=== PATIENT | female | born 1975 | race Caucasian/White ===

== ENCOUNTER → 2020-04-18 09:34 | Outpatient (BNVA) | payer OTHER, SELFPAY | PROVIDERS: PCP Internal Medicine; Referring Provider Internal Medicine; Visit Provider Physician Assistant | DX: E66.9 Obesity, unspecified (principal); Z68.32 Body mass index [BMI] 32.0-32.9, adult | CPT/HCPCS: 99205; 99214 ==

== ENCOUNTER → 2020-05-23 07:45 | Outpatient (BNVA) | payer OTHER, SELFPAY | PROVIDERS: PCP Nurse Practitioner Adult Health; Visit Provider Dietitian, Registered | DX: Z76.89 Persons encountering health services in other specified circumstances (principal) ==

== ENCOUNTER → 2020-06-10 13:45 | Outpatient (BNVA) | payer OTHER, SELFPAY | PROVIDERS: PCP Internal Medicine; Visit Provider Physician Assistant | DX: M77.11 Lateral epicondylitis, right elbow (principal) | CPT/HCPCS: 20551; 99202 ==

== ENCOUNTER → 2020-06-26 12:54 | Outpatient (BNVA) | payer OTHER, SELFPAY | PROVIDERS: PCP Internal Medicine; Referring Provider Internal Medicine; Visit Provider Physician Assistant | DX: M77.11 Lateral epicondylitis, right elbow (principal) | CPT/HCPCS: 20551; 99212; J1020 ==

== ENCOUNTER → 2020-08-12 08:17 | Outpatient (BNVA) | payer OTHER, SELFPAY | PROVIDERS: PCP Internal Medicine; Visit Provider Dietitian, Registered ==

== ENCOUNTER → 2020-08-21 12:25 | Outpatient (BNVA) | payer OTHER, SELFPAY | PROVIDERS: PCP Internal Medicine; Visit Provider Physician Assistant ==

== ENCOUNTER → 2020-08-26 08:22 | Outpatient (BNVA) | payer OTHER, SELFPAY | PROVIDERS: PCP Internal Medicine; Visit Provider Dietitian, Registered ==

== ENCOUNTER → 2020-10-24 09:37 | Outpatient (BNVA) | payer OTHER, SELFPAY | PROVIDERS: Visit Provider Physician Assistant ==

== ENCOUNTER → 2020-10-24 10:10 | Outpatient (BNVA) | payer OTHER, SELFPAY | PROVIDERS: Visit Provider Physician Assistant | DX: M77.01 Medial epicondylitis, right elbow (principal) | CPT/HCPCS: 20551; 99212; J1020 ==

== ENCOUNTER → 2021-03-13 09:48 | Outpatient (BNVA) | payer OTHER, SELFPAY | PROVIDERS: Visit Provider Physician Assistant | DX: M77.11 Lateral epicondylitis, right elbow (principal) | CPT/HCPCS: 20551; 99212; J1020 ==

== ENCOUNTER → 2021-06-25 14:42 | Outpatient (BNVA) | payer OTHER, SELFPAY | PROVIDERS: PCP Internal Medicine; Visit Provider Physician Assistant | DX: M77.11 Lateral epicondylitis, right elbow (principal) | CPT/HCPCS: 20551; 99212; J1020; J1100 ==

== ENCOUNTER 2021-07-11 15:39 | Emergency (ER) | payer OTHER, SELFPAY ==
--- NOTE | ~2021-07-11 | US_ITS ---
EXAMINATION: US PELVIS CLINICAL INFORMATION: Right adnexal pain. Status post endometrial ablation in 2016 COMPARISON: Prior CT abdomen pelvis and pelvic ultrasound from 2012, report only TECHNIQUE: Ultrasound of the pelvis is performed using both transabdominal and transvaginal transducers along with Doppler. Transvaginal imaging is performed due to inadequate visualization transabdominally. FINDINGS: Uterus: The uterus is anteverted and measures 9.7 x 4.7 x 6.4 cm. There is a 4.5 x 3.3 x 3.6 cm right-sided mass which appears to be arising from the fundus of the uterus, possibly a necrotic a fundal fibroid. This does not appear to be associated with the ovary. Because of the unusual appearance, elective pelvic pain post contrast MRI is recommended for further evaluation The double wall endometrial thickness is not well seen status post ablation. Adnexa: Both ovaries are visualized. There is normal color flow to the adnexa. There is no ovarian torsion. There is no pelvic ascites or fluid collection. Right ovary measures 3.0 x 2.8 x 2.8 cm for a volume of 9.4 mL This includes a 2.1 x 1.7 x 1.6 cm cyst. Left ovary measures 3.0 x 1.7 x 2.1 cm for a volume of 5.6 mL. US/US pelvic and transvaginal IMPRESSION: Abnormal mass arising from the fundus of the uterus on the right, somewhat unusual in appearances. Findings could represent a necrotic fundal fibroid. No fibroids have been described in the past. Elective pre and postcontrast pelvic MRI is recommended for further evaluation.
--- NOTE | ~2021-07-11 | CT_ITS ---
EXAMINATION: CT ABDOMEN AND PELVIS WITH CONTRAST CLINICAL INFORMATION: Acute right lower quadrant pain COMPARISON: Ultrasound pelvis today TECHNIQUE: Multidetector volumetric images were obtained from the superior aspect of the liver through the pubic symphysis following administration 85 mL of Omnipaque 350 intravenous contrast. Sagittal and coronal reformatted images were obtained on the technologist's workstation. Oral contrast: No This CT examination was performed using dose optimization techniques as appropriate, variously including the following: *Automated exposure control *Adjustment of mA and/or kV according to patient size (this includes techniques or standardized protocols for targeted exams where dose is matched to indication/reason for exam; i.e. extremities or head) *Use of iterative reconstruction technique DLP: 647 mGy-cm FINDINGS: LUNG BASES: The visualized lung bases are unremarkable. LIVER, GALLBLADDER, AND BILIARY TREE: The liver is enlarged and most likely demonstrates hepatic steatosis. A tiny 3 mm sized hypodensity seen in the right lobe of the liver just below the dome of the hemidiaphragm (4:55), most likely a cyst. No worrisome solid focal hepatic lesion or biliary ductal dilatation is present. The gallbladder is unremarkable with no evidence of radiopaque gallstones, gallbladder wall thickening, or obvious pericholecystic inflammatory changes. PANCREAS: Unremarkable. SPLEEN: Unremarkable. ADRENAL GLANDS: Unremarkable. KIDNEYS AND URETERS: The kidneys are normal in size, shape, and attenuation. No hydronephrosis, hydroureter, or calculi seen. No perinephric stranding. BLADDER: Unremarkable. GASTROINTESTINAL TRACT: The small and large bowel are unremarkable. The appendix is unremarkable. ABDOMINAL WALL: No significant hernia is appreciated. LYMPH NODES: No retroperitoneal lymphadenopathy. VASCULAR: Unremarkable. PELVIC VISCERA: There is a fluid collection within the endometrial cavity on the right near the fundus measuring 3.0 x 4.1 and 3.4 cm. This measures water density, no solid component or gestational sac/fetus is seen within this. A tiny sliver of fluid is seen in the same location on the left measuring only 4 mm in thickness. The ovaries appear normal. The left ovary which was not seen on the ultrasound exam 6 somewhat high abutting the uterus and has a single coarse calcification. A small amount of fluid is present in the cul-de-sac. OSSEOUS STRUCTURES: Unremarkable. 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 Findings could be secondary to a stricture, endometrial carcinoma, occult , pyometra -recommend MARKSMANSH[employer] INSTRUCTOR consultation/evaluation. The appendix is normal. Fleischner guidelines were followed.
--- NOTE | ~2021-07-11 | US_ITS ---
EXAMINATION: US PELVIS CLINICAL INFORMATION: Right adnexal pain. Status post endometrial ablation in 2016 COMPARISON: Prior CT abdomen pelvis and pelvic ultrasound from 2012, report only TECHNIQUE: Ultrasound of the pelvis is performed using both transabdominal and transvaginal transducers along with Doppler. Transvaginal imaging is performed due to inadequate visualization transabdominally. FINDINGS: Uterus: The uterus is anteverted and measures 9.7 x 4.7 x 6.4 cm. There is a 4.5 x 3.3 x 3.6 cm right-sided mass which appears to be arising from the fundus of the uterus, possibly a necrotic a fundal fibroid. This does not appear to be associated with the ovary. Because of the unusual appearance, elective pelvic pain post contrast MRI is recommended for further evaluation The double wall endometrial thickness is not well seen status post ablation. Adnexa: Both ovaries are visualized. There is normal color flow to the adnexa. There is no ovarian torsion. There is no pelvic ascites or fluid collection. Right ovary measures 3.0 x 2.8 x 2.8 cm for a volume of 9.4 mL This includes a 2.1 x 1.7 x 1.6 cm cyst. Left ovary measures 3.0 x 1.7 x 2.1 cm for a volume of 5.6 mL. US/US pelvic ovarian doppler IMPRESSION: Abnormal mass arising from the fundus of the uterus on the right, somewhat unusual in appearances. Findings could represent a necrotic fundal fibroid. No fibroids have been described in the past. Elective pre and postcontrast pelvic MRI is recommended for further evaluation.
[2021-07-11 15:40] VITALS: BP 150/80; PULSE 81; RESP 16; TEMP 37; O2SAT 98; BMI 32.8
--- NOTE | 2021-07-11 16:06 | ED_ITS ---
HPI - Abdominal Pain General Chief Complaint: Abdominal Pain Stated Complaint: lower rt quad pain Time Seen by Provider: 07/11/21 15:43 Source: patient Mode of arrival: ambulatory Limitations: no limitations History of Present Illness HPI narrative: 45-year-old female with past medical history of IBS complains of 2 days of right lower quadrant pain. The pain is intermittent but is increasing in frequency. When the pain comes it lasts 1-2 minutes and is excruciating and she feels like she is in labor. The pain makes her nauseous. She describes the pain as sharp, feels like something inside her right lower quadrant ?wants to burst?. Pain radiates into her right buttock and down into her right hip and right thigh. patient took dicyclomine which was not helping, also took Motrin and Tylenol which did not help. No vomiting, no diarrhea, no fevers. No vaginal discharge, no urinary tract infection symptoms. Patient is vaccinated for COVID but has not had her booster. Patient had a right fallopian tube out this summer due to a large cyst. Patient has also had a uterine ablation. She still has her ovaries. States she has started getting regular periods again because her uterine ablation was in 2014. Last menses was last week. 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 States she just went back to work after being out of work for 5 years due to uncontrollable pain. MD elicited complaint: abdominal pain Onset (ago): day(s) (2) Pain Consistency: intermittent Location: RLQ Severity: severe Quality: stabbing Radiation: other Migration to: no migration Exacerbating factors: nothing Relieving factors: nothing Associated symptoms: nausea Related Data Home Medications Medication Instructions Recorded Confirmed albuterol sulfate 90 mcg/actuation 1 inh INHALATION QID 04/15/20 04/18/20 aerosol inhaler (ProAir HFA) bupropion HCl 300 mg 24 hr tablet, 300 mg PO QAM 04/15/20 04/18/20 extended release (Wellbutrin XL) fexofenadine 180 mg tablet 180 mg PO DAILY 04/15/20 04/18/20 (Francoise Allergy) fluticasone propionate 50 1 spray INTRANASAL DAILY 04/15/20 04/18/20 mcg/actuation nasal spray,suspension pregabalin 150 mg capsule (Lyrica) 150 mg PO BEDTIME 04/15/20 04/18/20 temazepam 30 mg capsule 30 mg PO BEDTIME PRN 04/15/20 04/18/20 tizanidine 4 mg capsule 4 mg PO BEDTIME 04/15/20 04/18/20 biotin 10,000 mcg capsule mcg PO 04/18/20 04/18/20 bupropion HCl 150 mg tablet,12 hr 150 mg PO DAILY 04/18/20 04/18/20 sustained-release (Wellbutrin SR) ibuprofen 200 mg tablet (Motrin IB) 200 mg PO Q6H PRN 04/18/20 04/18/20 lidocaine 5 % topical ointment 1 applic TOPICAL BEDTIME 04/18/20 04/18/20 multivitamin 1 tab PO DAILY 04/18/20 04/18/20 oxycodone-acetaminophen 2.5 mg-325 1 tab PO Q8H PRN 04/18/20 04/18/20 mg tablet (Percocet) pregabalin 300 mg capsule (Lyrica) 300 mg PO DAILY 04/18/20 04/18/20 quetiapine 25 mg tablet 25 mg PO BEDTIME 04/18/20 04/18/20 valacyclovir 500 mg tablet 0 mg PO 04/18/20 04/18/20 Previous Rx's Medication Instructions Recorded doxycycline hyclate 100 mg capsule 100 mg PO BID 14 Days #28 cap 07/11/21 ketorolac 10 mg tablet 10 mg PO Q6H 5 Days #20 tab 07/11/21 metronidazole 500 mg tablet 500 mg PO BID 14 Days #28 tab 07/11/21 Allergies Allergy/AdvReac Type Severity Reaction Status Date / Time bee pollen [BEE STINGS] Allergy Severe ANAPHYLAXIS Verified 06/25/21 14:55 aluminum hydroxide Allergy Intermediate SWELLING Verified 06/25/21 14:55 [From MAALOX] ciprofloxacin [From CIPRO] Allergy Intermediate RASH Verified 06/25/21 14:55 latex [LATEX] Allergy Intermediate RASH Verified 06/25/21 14:55 bacitracin [BACITRACIN] Allergy Unknown HIVES Verified 06/25/21 14:55 codeine Allergy Unknown unknown Verified 06/25/21 14:55 phenytoin [Dilantin] Allergy Unknown Unknown Verified 12/08/21 14:55 From DILANTIN Allergy Intermediate SKIN Uncoded 10/24/20 15:23 BURNING Maalox Allergy Unknown unkown Uncoded 10/24/20 15:23 Review of Systems Constitutional: Denies body ache(s), Denies chills, Denies fatigue, Denies fever(s), Denies headache(s), Denies malaise and Denies weakness Eyes: Denies diplopia Denies vertigo, Denies dizziness, Denies otalgia, Denies headache(s), Denies mouth pain, Denies post nasal drip, Denies sinus pain, Denies sinus pressure, Denies sore throat and Denies throat swelling Cardiovascular: Denies chest pain, Denies syncope, Denies leg edema, Denies lightheadedness, Denies Loss of Consciousness, Denies palpitations and Denies dyspnea Respiratory: Denies chest congestion, Denies cough and Denies dyspnea Gastrointestinal: Reports abdominal pain, Denies melena, Denies hematochezia, Denies coffee ground emesis, Denies constipation, Denies diarrhea, Reports nausea and Denies vomiting Genitourinary: Denies abnormal menses, Denies hematuria, Denies dysuria, Reports pelvic pain, Reports flank pain, Denies urinary hesitancy, Denies urinary urgency and Denies vaginal discharge Musculoskeletal: Reports back pain Denies confusion, Denies vertigo, Denies dizziness, Denies syncope, Denies headache(s) and Denies weakness Psychiatric: Denies anxiety, Denies confusion and Denies depression Endocrine: Denies fatigue and Denies palpitations Allergic/Immunologic: Denies throat swelling Physical Exam Vital Signs: Vital Signs: Last Vital Signs Temp 97.9 F 07/11/21 21:29 Pulse 77 07/11/21 21:29 Resp 17 07/11/21 21:30 BP 143/61 H 07/11/21 21:29 Pulse Ox 100 07/11/21 21:29 BMI result Body Mass Index 32.8 Const: General: well developed, alert and awake; No confusion Nutritional Appearance: well nourished Orientation/consciousness: patient oriented x3 and No confusion Limitations: no limitations HENMT: Head: Yes normal to inspection, Yes normocephalic and Yes atraumatic Ears: hearing grossly normal bilaterally, external ears normal, TM's normal bilaterally and EAC's normal General nose exam: Normal external nose present Face and sinus: Yes normal facial exam and Yes sinuses nontender Mouth: Normal oral and palatal mucosa present Throat: Yes posterior oropharynx normal Eyes: Conjunctivae: conjunctivae normal Pupils: Equal, round and reactive pupils present EOM: EOMs intact bilaterally Neck: Neck: Yes full ROM, Yes no lymphadenopathy and Yes supple Resp: Effort & Inspection: normal respiratory effort and able to speak in complete sentences Auscultation: clear to auscultation bilaterally, no crackles, no rales, no rhonchi and no wheezes Cardio: Rate: regular rate Rhythm: regular rhythm Heart sounds: S1 normal heart sound present and S2 normal heart sound present GI: Inspection: Yes obesity Palpation (GI): Soft to palpation, Tenderness to palpation present (GI) in the RLQ, Guarding due to palpation present (GI) in the RLQ and not rigid Percussion: Yes normal to percussion Auscultation: normal bowel sounds : General: Yes CVA tenderness on the right External Female Exam: normal external appearance, normal appearance of the urethra, No erythema and No externally tender Speculum Exam - Vagina: normal appearance of the vagina, normal palpation, normal vaginal discharge, not erythematous, no lesions, No vaginal bleeding and nontender Speculum Exam - Cervix: normal appearance of the cervix Bimanual exam- vagina & uterus: normal palpation and no cervical motion tenderness Bimanual Exam- Adnexa, other: tender on the right OB/external & speculum: No vaginal bleeding Back/Spine/Pelvis: Back: CVA tenderness Skin: General skin exam: no rashes or lesions noted Neuro: General: patient oriented x3 and No confusion Cranial nerves: Yes Equal, round and reactive pupils present Extrem: General: Yes normal to inspection and Yes full ROM Psych: Appearance: grossly normal Affect: normal affect Attitude: cooperative Thought process: Normal thought process present Course Course Course Narrative: 45-year-old female with right lower quadrant/right pelvic pain for last 2 days. Pain is intermittent and is severe when it comes, lasting 1-2 minutes. On exam, patient is tender guarding in her right lower quadrant, also has right CVA tenderness that radiates to her right abdomen when I palpate her right flank. Patient has chandelier sign on the right adnexa, no cervical motion tenderness, no abnormal vaginal discharge Afebrile, vital signs are stable. Once patient is given pain medication will to pelvic exam, ordered labs, urine, ultrasound and Doppler of pelvis. Given morphine, Zofran, fluids. Reevaluation(s) Reevaluation #1: Labs are unremarkable, lipase is not elevated. Urine is clean, patient is not . COVID test is negative. Ultrasound shows possible necrotic fibroid on the right side of the uterus, right ovarian cyst Will CT patient's abdomen and pelvis, make sure there are no other pathologies at play CT shows fluid collection in the right uterus endometrial cavity Gill texted with Dr Marin about these findings; he will come in to evaluate her. Pt has had 12 mg of morphine for PAIN so far tonight I did not do GC chlamydia BV, Trichomonas cervical swabs during pelvic exam is patient had no concerns for STD and told me she was in the ER monogamous relationship. We can get the swabs when Dr Marin examines her if he deems it necessary US shows: US/US pelvic and transvaginal IMPRESSION: Abnormal mass arising from the fundus of the uterus on the right, somewhat unusual in appearances. Findings could represent a necrotic fundal fibroid. No fibroids have been described in the past. Elective pre and postcontrast pelvic MRI is recommended for further evaluation. 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 Findings could be secondary to a stricture, endometrial carcinoma, occult , pyometra -recommend CLINICAL SUPPORT SPECIALIST consultation/evaluation. The appendix is normal. Reevaluation #2: Doctors Brigid did obtain swabs, will treat for PID, although that diagnosis is unlikely. Patient may have pial me TRIA, endometrial carcinoma, or post ablation syndrome. 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 Plan created with Dr Marin is to treat with ceftriaxone here, doxycycline, metronidazole, and for patient to follow up in office next week for an endometrial biopsy. Patient given return precautions for worsening pain, fevers, nausea or vomiting. Will treat pain with Toradol Patient counseled not to take any other ibuprofen containing products while taking Toradol. Cervical swabs for gonorrhea, chlamydia, Trichomonas, will return in 2 days, counseled patient if she did not hear from us they were negative, but encourage patient to call hospital for results if she has not heard. Patient is concerned that her who is schizoaffective will think she cheated if she is being treated for pelvic inflammatory disease. I counseled her to tell him that she may have a pus collection in her uterus and that is why she needs antibiotics MDM - Abdominal Pain Lab Data Result diagrams: 07/11/21 16:45 07/11/21 16:45 Labs: Lab Results 07/11/21 07/11/21 07/11/21 Range/Units 16:45 16:45 16:45 WBC 10.0 (4.8-10.8) X10*3/uL RBC 4.21 (4.20-5.50) X10*6/uL Hgb 13.7 (12.0-16.0) g/dl Hct 40.5 (37.0-47.0) % MCV 96.2 (80.0-98.0) fL MCH 32.5 (27.0-33.0) pg MCHC 33.8 (31.0-35.0) g/dl RDW 11.9 (11.0-16.0) % Plt Count 419 H (160-400) X10*3/uL MPV 9.1 L (9.4-12.3) fL Immature Gran % (Auto) 0.5 H (0.0-0.4) % Neut % (Auto) 59.6 (45-73) % Lymph % (Auto) 31.6 (20-40) % Bradley % (Auto) 6.5 (2-11) % Eos % (Auto) 1.4 (0-4) % Baso % (Auto) 0.4 (0-2) % Lymph # (Auto) 3.2 (1.2-4.9) X10*3/uL Bradley # (Auto) 0.7 (0.1-1.2) X10*3/uL Eos # (Auto) 0.1 (0.0-0.4) X10*3/uL Baso # (Auto) 0.0 (0.0-0.2) X10*3/uL Abs Immat Gran (auto) 0.05 H (0.00-0.03) X10*3/uL Absolute Neuts (auto) 6.0 (2.0-8.3) x10*3/uL Absolute Nucleated RBC 0.000 (0.0-0.012) X10*3/uL Nucleated RBC % (auto) 0.0 (0.0-0.2) /100WBC Sodium 139 (135-145) mmol/L Potassium 4.2 (3.3-5.1) mmol/L Chloride 108 (96-108) mmol/L Carbon Dioxide 24 (22-29) mmol/L Anion Gap 11 L (12-20) BUN 9 (9-16) mg/dL Creatinine 0.74 (0.5-1.4) mg/dL Estim Creat Clear Calc 87.6 Estimated GFR > 60 Random Glucose 89 (60-115) mg/dL Calcium 9.3 (8.4-10.2) mg/dL Total Bilirubin 0.5 (0.0-1.0) mg/dL Direct Bilirubin < 0.2 (0.0-0.5) mg/dL AST 18 (5-31) U/L ALT 25 (0-31) U/L Alkaline Phosphatase 68 (39-117) U/L Total Protein 6.8 (6.5-8.0) g/dL Albumin 4.2 (3.5-5.0) g/dL Lipase 19 (8-78) U/L Urine Color Urine Appearance Urine pH (5.0-8.0) Ur Specific [place] (1.005-1.025) Urine Protein (NEG-TRACE) MG/DL Urine Glucose (UA) (NEG) MG/DL Urine Ketones (NEG) MG/DL Urine Blood (NEG) Urine Nitrite (NEG) Ur Leukocyte Esterase (NEG) Urine Test (NEGATIVE) COVID-19 ([facility]) Negative (Negative) COVID-19 Clin Com See Note 07/11/21 07/11/21 Range/Units 16:45 16:45 WBC (4.8-10.8) X10*3/uL RBC (4.20-5.50) X10*6/uL Hgb (12.0-16.0) g/dl Hct (37.0-47.0) % MCV (80.0-98.0) fL MCH (27.0-33.0) pg MCHC (31.0-35.0) g/dl RDW (11.0-16.0) % Plt Count (160-400) X10*3/uL MPV (9.4-12.3) fL Immature Gran % (Auto) (0.0-0.4) % Neut % (Auto) (45-73) % Lymph % (Auto) (20-40) % Bradley % (Auto) (2-11) % Eos % (Auto) (0-4) % Baso % (Auto) (0-2) % Lymph # (Auto) (1.2-4.9) X10*3/uL Bradley # (Auto) (0.1-1.2) X10*3/uL Eos # (Auto) (0.0-0.4) X10*3/uL Baso # (Auto) (0.0-0.2) X10*3/uL Abs Immat Gran (auto) (0.00-0.03) X10*3/uL Absolute Neuts (auto) (2.0-8.3) x10*3/uL Absolute Nucleated RBC (0.0-0.012) X10*3/uL Nucleated RBC % (auto) (0.0-0.2) /100WBC Sodium (135-145) mmol/L Potassium (3.3-5.1) mmol/L Chloride (96-108) mmol/L Carbon Dioxide (22-29) mmol/L Anion Gap (12-20) BUN (9-16) mg/dL Creatinine (0.5-1.4) mg/dL Estim Creat Clear Calc Estimated GFR Random Glucose (60-115) mg/dL Calcium (8.4-10.2) mg/dL Total Bilirubin (0.0-1.0) mg/dL Direct Bilirubin (0.0-0.5) mg/dL AST (5-31) U/L ALT (0-31) U/L Alkaline Phosphatase (39-117) U/L Total Protein (6.5-8.0) g/dL Albumin (3.5-5.0) g/dL Lipase (8-78) U/L Urine Color YELLOW Urine Appearance CLEAR Urine pH 6.5 (5.0-8.0) Ur Specific [place] 1.010 (1.005-1.025) Urine Protein NEG (NEG-TRACE) MG/DL Urine Glucose (UA) NEG (NEG) MG/DL Urine Ketones NEG (NEG) MG/DL Urine Blood NEG (NEG) Urine Nitrite NEG (NEG) Ur Leukocyte Esterase NEG (NEG) Urine Test NEGATIVE (NEGATIVE) COVID-19 ([facility]) (Negative) COVID-19 Clin Com Discharge Plan Discharge Clinical Impression: Acute pelvic inflammatory disease (PID), Uterine anomaly Patient Disposition: Home, Self-Care Additional Instructions: We are treating you for pelvic inflammatory disease because we are not sure what your exact diagnosis is yet. Please take antibiotics as prescribed, please take ketorolac for pain as prescribed If you have worsening pain, nausea vomiting, cannot eat or drink, have fevers, please return to emergency room If you do not hear back from the hospital by Wednesday, please call for test results Please call Dr Marin's number, , for an appointment this coming week. His office should be calling you as well, I referred you, but I would like you to call them on Wednesday Please not take any ibuprofen containing products, no Motrin, Excedrin, Aleve, Excedrin, while you are taking the ketorolac. Prescriptions: New ketorolac 10 mg tablet 10 mg PO Q6H 5 Days Qty: 20 RF: 0 metronidazole 500 mg tablet 500 mg PO BID 14 Days Qty: 28 RF: 0 doxycycline hyclate 100 mg capsule 100 mg PO BID 14 Days Qty: 28 RF: 0 No Action multivitamin Tablet 1 tab PO DAILY RF: 0 bupropion HCl [Wellbutrin SR] 150 mg tablet sustained-release 12 hr 150 mg PO DAILY RF: 0 ibuprofen [Motrin IB] 200 mg tablet 200 mg PO Q6H PRNRF: 0 biotin 10,000 mcg capsule PO RF: 0 lidocaine 5 % ointment 1 applic topical BEDTIME RF: 0 oxycodone-acetaminophen [Percocet] 2.5-325 mg tablet 1 tab PO Q8H PRNRF: 0 pregabalin [Lyrica] 300 mg capsule 300 mg PO DAILY RF: 0 quetiapine 25 mg tablet 25 mg PO BEDTIME RF: 0 valacyclovir 500 mg tablet 0 mg PO RF: 0 tizanidine 4 mg capsule 4 mg PO BEDTIME RF: 0 albuterol sulfate [ProAir HFA] 90 mcg/actuation HFA aerosol inhaler 1 inh inhalation QID RF: 0 fluticasone propionate 50 mcg/actuation spray,suspension 1 spray intranasal DAILY RF: 0 temazepam 30 mg capsule 30 mg PO BEDTIME PRNRF: 0 fexofenadine [Francoise Allergy] 180 mg tablet 180 mg PO DAILY RF: 0 bupropion HCl [Wellbutrin XL] 300 mg tablet extended release 24 hr 300 mg PO QAM RF: 0 pregabalin [Lyrica] 150 mg capsule 150 mg PO BEDTIME RF: 0 Referrals: Murphy Marin MD [Physician] - 2 days [facility] Past Medical History Medical History Abnormal TSH Acute suppurative thyroiditis Aortic dissection Thyroiditis Surgical History History of back surgery History of carpal tunnel release History of prior ablation treatment History of removal of cyst Family History Family History Father Aortic dissection Throat cancer Mother HTN (hypertension) Brother No problems noted. Brother No problems noted. Sister No problems noted. Sister No problems noted. Son No problems noted. Son No problems noted. Daughter No problems noted. Daughter No problems noted. 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
[2021-07-11 16:50] LABS: MANUAL DIFF FLAG NO
[2021-07-11 16:51] VITALS: RESP 18
[2021-07-11] MEDS: 0.9 % Sodium Chloride 1,000 ML 999 ML IV (16:51)
[2021-07-11] MEDS: Morphine Sulfate 4 MG/ML CARTRIDGE IVPUSH ×3 (16:51→21:30)
[2021-07-11] MEDS: ondansetron HCL 4 MG/2 ML VIAL IVPUSH (16:51)
[2021-07-11 16:52] LABS: Basophils Percent Auto 0.4 % (0-2); Eosinophils Absolute Auto 0.1 X10*3/uL (0.0-0.4); Eosinophils Percent Auto 1.4 % (0-4); Hematocrit 40.5 % (37.0-47.0); Hemoglobin 13.7 g/dl (12.0-16.0); Imm Gran Abs Auto 0.05 X10*3/uL (0.00-0.03); Imm Gran Pct Auto 0.5 % (0.0-0.4); Lymphocytes Absolute Auto 3.2 X10*3/uL (1.2-4.9); Lymphocytes Percent Auto 31.6 % (20-40); Mean Corpuscular HGB Conc 33.8 g/dl (31.0-35.0); Mean Corpuscular Hemoglobin 32.5 pg (27.0-33.0); Mean Corpuscular Volume 96.2 fL (80.0-98.0); Mean Platelet Volume 9.1 fL (9.4-12.3); Monocytes Absolute Auto 0.7 X10*3/uL (0.1-1.2); Monocytes Percent Auto 6.5 % (2-11); Neutrophils Percent Auto 59.6 % (45-73); Platelet Count 419 X10*3/uL (160-400); Red Blood Count 4.21 X10*6/uL (4.20-5.50); Red Cell Distribution Width 11.9 % (11.0-16.0)
[2021-07-11 16:53] LABS: Appearance Urine CLEAR; Color Urine YELLOW; Glucose Urine UA NEG (NEG); Leukocyte Esterase Urine NEG (NEG); Nitrite Urine NEG (NEG); PH 6.5 (5.0-8.0); Urine Blood NEG (NEG); Urine Ketones NEG (NEG); Urine Protein NEG (NEG-TRACE)
[2021-07-11 17:04] LABS: COVID-19 Test Negative (Negative)
[2021-07-11 17:06] LABS: Urine Pregnancy NEGATIVE (NEGATIVE)
[2021-07-11 17:07] LABS: UPreg QC Valid YES
[2021-07-11 17:09] LABS: Alanine Aminotransferase 25 U/L (0-31); Albumin Level 4.2 g/dL (3.5-5.0); Alkaline Phosphatase 68 U/L (39-117); Anion Gap 11 (12-20); Aspartate Amino Transferase 18 U/L (5-31); Bilirubin Direct < 0.2 mg/dL (0.0-0.5); Bilirubin Total 0.5 mg/dL (0.0-1.0); Blood Urea Nitrogen 9 mg/dL (9-16); Calcium 9.3 mg/dL (8.4-10.2); Carbon Dioxide 24 mmol/L (22-29); Chloride 108 mmol/L (96-108); Creatinine Clr Calc Pharmacy 87.6; Estimated Glomerular Filt Rate > 60; Glucose Random 89 mg/dL (60-115); Lipase 19 U/L (8-78); Potassium 4.2 mmol/L (3.3-5.1); Sodium 139 mmol/L (135-145); Total Protein 6.8 g/dL (6.5-8.0)
--- NOTE | 2021-07-11 18:34 | PC.NURSE ---
this rn to bedside with pa for manual and spec exam. pt very tender.
[2021-07-11] MEDS: Acetaminophen 325 MG TABLET 975 MG PO (18:50)
[2021-07-11 18:51] VITALS: RESP 20
[2021-07-11] MEDS: iohexoL 350 MG/ML 100 ML INFUS..BTL 85 ML IV (19:26)
[2021-07-11 21:29] VITALS: BP 143/61; PULSE 77; RESP 17; TEMP 36.6; O2SAT 100
[2021-07-11 21:30] VITALS: RESP 17
--- NOTE | 2021-07-11 21:38 | PC.NURSE ---
Dr Marin at bedside. Terrie HAWK and this RN at bedside during pelvic exam and obtaining swabs as ordered. Sent for processing.
--- NOTE | 2021-07-11 22:12 | P.CONOB_ITS ---
EARLY INTERVENTION SPECIALIST - CN: HPI Data of Consult Consult date: 07/11/21 Primary Care Provider: Colin Summers MD Consult Narrative Narrative: I was called on Lalitha Beyer who is a 45 year old female who presented to the emergency room with 3 day history of right lower back pain associated with nausea, vomiting , no vaginal discharge or bleeding. Last menstrual period was a week ago. The Patient gives a history of endometrial abl ation 5 years ago , then the patient was diagnosed with post ablation syndrome few years ago when she presented emergency room at [facility] to her with pelvic pain but since then her pain improved and never recurred. The patient gives a history of regular menses there are moderate in flow, and mild cramping. 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 Brother No problems noted. Sister No problems noted. Sister No problems noted. Son No problems noted. Son No problems noted. Daughter No problems noted. Daughter No problems noted. 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 Allergies Allergy/AdvReac Type Severity Reaction Status Date / Time bee pollen [BEE STINGS] Allergy Severe ANAPHYLAXIS Verified 06/25/21 14:55 aluminum hydroxide Allergy Intermediate SWELLING Verified 06/25/21 14:55 [From MAALOX] ciprofloxacin [From CIPRO] Allergy Intermediate RASH Verified 06/25/21 14:55 latex [LATEX] Allergy Intermediate RASH Verified 06/25/21 14:55 bacitracin [BACITRACIN] Allergy Unknown HIVES Verified 06/25/21 14:55 codeine Allergy Unknown unknown Verified 06/25/21 14:55 phenytoin [Dilantin] Allergy Unknown Unknown Verified 06/25/21 14:55 From DILANTIN Allergy Intermediate SKIN Uncoded 10/24/20 15:23 BURNING Maalox Allergy Unknown unkown Uncoded 10/24/20 15:23 Active Medications: Current Medications Ceftriaxone Sodium 500 mg/ (Sodium Chloride) 50 mls @ 100 mls/hr IV ONCE ONE Stop: 07/11/21 22:25 Home Medications Medication Instructions Recorded Confirmed Last Taken Type albuterol sulfate 90 mcg/actuation 1 inh INHALATION QID 04/15/20 04/18/20 Unknown History aerosol inhaler (ProAir HFA) bupropion HCl 300 mg 24 hr tablet, 300 mg PO QAM 04/15/20 04/18/20 Unknown History extended release (Wellbutrin XL) fexofenadine 180 mg tablet 180 mg PO DAILY 04/15/20 04/18/20 Unknown History (Francoise Allergy) fluticasone propionate 50 1 spray INTRANASAL DAILY 04/15/20 04/18/20 Unknown History mcg/actuation nasal spray,suspension pregabalin 150 mg capsule (Lyrica) 150 mg PO BEDTIME 04/15/20 04/18/20 Unknown History temazepam 30 mg capsule 30 mg PO BEDTIME PRN 04/15/20 04/18/20 Unknown History tizanidine 4 mg capsule 4 mg PO BEDTIME 04/15/20 04/18/20 Unknown History biotin 10,000 mcg capsule mcg PO 04/18/20 04/18/20 Unknown History bupropion HCl 150 mg tablet,12 hr 150 mg PO DAILY 04/18/20 04/18/20 Unknown History sustained-release (Wellbutrin SR) ibuprofen 200 mg tablet (Motrin IB) 200 mg PO Q6H PRN 04/18/20 04/18/20 Unknown History lidocaine 5 % topical ointment 1 applic TOPICAL BEDTIME 04/18/20 04/18/20 Unknown History multivitamin 1 tab PO DAILY 04/18/20 04/18/20 Unknown History oxycodone-acetaminophen 2.5 mg-325 1 tab PO Q8H PRN 04/18/20 04/18/20 Unknown History mg tablet (Percocet) pregabalin 300 mg capsule (Lyrica) 300 mg PO DAILY 04/18/20 04/18/20 Unknown History quetiapine 25 mg tablet 25 mg PO BEDTIME 04/18/20 04/18/20 Unknown History valacyclovir 500 mg tablet 0 mg PO 04/18/20 04/18/20 Unknown History EARLY INTERVENTION SPECIALIST Physical Exam Vitals Vital signs: Temp Pulse Resp BP Pulse Ox 97.9 F 77 17 143/61 H 100 07/11/21 21:29 07/11/21 21:29 07/11/21 21:30 07/11/21 21:29 07/11/21 21:29 BMI result Body Mass Index 32.8 Abdomen Auscultation/Inspection/Palpation: Normal bowel sounds, Soft, Non-distended, No CVA tenderness and Tenderness (Right lower quadrant, mild with no guarding or rebound) Female Genitalia (Pelvic) Bladder/Urethra: Normal meatus Vulva: No lesions Vagina: Nontender, No erythema, Normal discharge and No lesions Cervix: Grossly normal and Cervical motion tenderness Uterus: Tender (More on the right) Adnexa/Parametria: Adnexal Tenderness: Right, Adnexal Mass: None, Parametrial Tenderness: None and Parametrial Mass: None EARLY INTERVENTION SPECIALIST - Results Labs CBC & Chem 7: 07/11/21 16:45 07/11/21 16:45 Labs: Short CBC 07/11/21 Range/Units 16:45 WBC 10.0 (4.8-10.8) X10*3/uL Hgb 13.7 (12.0-16.0) g/dl Hct 40.5 (37.0-47.0) % Plt Count 419 H (160-400) X10*3/uL BMP 07/11/21 16:45 Sodium 139 Potassium 4.2 Chloride 108 Carbon Dioxide 24 BUN 9 Creatinine 0.74 Calcium 9.3 Liver Function 07/11/21 Range/Units 16:45 Total Bilirubin 0.5 (0.0-1.0) mg/dL Direct Bilirubin < 0.2 (0.0-0.5) mg/dL AST 18 (5-31) U/L ALT 25 (0-31) U/L Alkaline Phosphatase 68 (39-117) U/L Albumin 4.2 (3.5-5.0) g/dL Urine 07/11/21 07/11/21 Range/Units 16:45 16:45 Urine Color YELLOW Urine Appearance CLEAR Urine pH 6.5 (5.0-8.0) Ur Specific [place] 1.010 (1.005-1.025) Urine Protein NEG (NEG-TRACE) MG/DL Urine Glucose (UA) NEG (NEG) MG/DL Urine Test NEGATIVE (NEGATIVE) Imaging CT scan - pelvis: Radiologist's impression: ITS Impressions Doppler Study Ultrasound 07/11/21 17:35 IMPRESSION: Abnormal mass arising from the fundus of the uterus on the right, somewhat unusual in appearances. Findings could represent a necrotic fundal fibroid. No fibroids have been described in the past. Elective pre and postcontrast pelvic MRI is recommended for further evaluation. Pelvic/Transvag US 07/11/21 17:35 IMPRESSION: Abnormal mass arising from the fundus of the uterus on the right, somewhat unusual in appearances. Findings could represent a necrotic fundal fibroid. No fibroids have been described in the past. Elective pre and postcontrast pelvic MRI is recommended for further evaluation. 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 Findings could be secondary to a stricture, endometrial carcinoma, occult , pyometra -recommend EARLY INTERVENTION SPECIALIST consultation/evaluation. The appendix is normal. Fleischner guidelines were followed. Assessment and Plan (1) Pelvic pain in female: Status: Acute Discussed with the patient the findings on physical exam, showing: the following abdominal tenderness without guarding and rebound, cervical motion tenderness, uterine adnexal tenderness with right adnexal tenderness, in addition ultrasound showed a 3-4 cm right fundal mass atypical looking possibly necrotic myoma but CT scan showed a 3.5 cm fluid collection in the endometrial cavity without evidence of myoma differential diagnosis per radiologist included pyometra, and endometrial carcinoma Discussed the patient also the results of her CBC showingno evidence of leukocytosis, normal temperature, normal urine and negative test Differential diagnosis was discussed with the patient included but not limited to: post ablation syndrome, PID, endometrial carcinoma or bowel adhesions to the site of the right salpingectomy without evidence of bowel obstruction. GC and chlamydia with Trichomonas and BV panel collected, Will treat with ceftriaxone 500 mg IM x1, Flagyl 500 mg p.o. b.i.d. but doxycycline 100 mg p.o. b.i.d. for 14 days, follow-up in the office in 3 days for endometrial biopsy to rule out endometrial pathology including hyperplasia carcinoma or polyp. Instructions given to patient to call or go to emergency room in case of fever above 100.4, nausea and vomiting worsening of her pain. All questions answered, the patient verbalized understand Discussed the case with CARINE Jason
[2021-07-11 22:27] VITALS: BP 132/65; PULSE 67; RESP 17; O2SAT 100
[2021-07-11] MEDS: Ketorolac Tromethamine 30 MG/ML VIAL IVPUSH (22:29)
[2021-07-11] MEDS: metroNIDAZOLE 500 MG TABLET PO (22:31)
[2021-07-12 02:00] LABS: CT PCR NOT DETECTED (Not Detect.); NG PCR NOT DETECTED (Not Detect.)
[2021-07-12 10:42] LABS: BV Int Neg Control Negative (Negative); BV Int Pos Control Positive (Positive)
== END 2021-07-11 23:35 | disposition home or self-care (01) ==
PROVIDERS: Physician Assistant; Emergency Provider Emergency Medicine; PCP Internal Medicine
DX: N73.9 Female pelvic inflammatory disease, unspecified (principal); Q51.9 Congenital malformation of uterus and cervix, unspecified; R10.31 Right lower quadrant pain; Z20.822 Contact with and (suspected) exposure to COVID-19
CPT/HCPCS: 36415; 74177; 76830; 76856; 80048; 80076; 81003; 81025; 83690; 85025; 87480; 87491; 87510; 87591; 87635; 87660; 93975; 96361; 96365; 96375; 96376; 99285; J0696; J1885; J2270; J2405; Q9967

== ENCOUNTER → 2021-07-16 14:13 | Outpatient (BNVA) | payer OTHER, SELFPAY | PROVIDERS: PCP Internal Medicine; Visit Provider Obstetrics & Gynecology | DX: R10.2 Pelvic and perineal pain (principal) | CPT/HCPCS: 99212 ==

== ENCOUNTER 2021-07-29 10:55 | Outpatient (REF) | payer OTHER, SELFPAY | END 2021-07-29 10:56 | disposition home or self-care (01) | LOC: HO.LAB 10:55 | PROVIDERS: Visit Provider Obstetrics & Gynecology | DX: R10.2 Pelvic and perineal pain (principal) | CPT/HCPCS: 58100; 88305 ==

== ENCOUNTER → 2021-08-12 12:34 | Outpatient (BNVA) | payer OTHER, SELFPAY | PROVIDERS: Visit Provider Obstetrics & Gynecology | DX: R10.2 Pelvic and perineal pain (principal) | CPT/HCPCS: Q3014 ==

== ENCOUNTER 2021-10-16 22:04 | Emergency (ER) | payer OTHER, SELFPAY ==
--- NOTE | ~2021-10-16 | US_ITS ---
EXAMINATION: US PELVIS CLINICAL INFORMATION: Right lower quadrant pain COMPARISON: 07/11/2021 TECHNIQUE: Ultrasound of the pelvis is performed using both transabdominal and transvaginal transducers along with Doppler. Transvaginal imaging is performed due to inadequate visualization transabdominally. FINDINGS: Uterus: The uterus is anteverted and measures 8.6 x 4.8 x 4.6 cm. There is a 2.8 x 2.6 x 2.5 cm mass within the uterine fundus which appears more echogenic than on the previous exam, but smaller, previously measuring 4.5 x 3.3 x 3.6 cm. The mass largely obscures, or replaces the individual signature. Nabothian cyst present within the cervix. Adnexa: Both ovaries are visualized. There is normal color flow to the adnexa. There is no ovarian torsion. There is no pelvic ascites or fluid collection. Right ovary measures 2.6 x 1.8 x 2.3 cm. Subcentimeter follicle present within the right ovary. Left ovary measures 2.6 x 2.0 x 1.5 cm. US/US pelvic and transvaginal IMPRESSION: Interval decrease in size of the uterine fundal mass, but with increased echogenicity. This could represent a degenerating fibroid. The decrease in size is reassuring for benign etiology. Consider nonemergent MRI pelvis without and with contrast to confirm.
--- NOTE | ~2021-10-16 | US_ITS ---
EXAMINATION: US PELVIS CLINICAL INFORMATION: Right lower quadrant pain COMPARISON: 07/11/2021 TECHNIQUE: Ultrasound of the pelvis is performed using both transabdominal and transvaginal transducers along with Doppler. Transvaginal imaging is performed due to inadequate visualization transabdominally. FINDINGS: Uterus: The uterus is anteverted and measures 8.6 x 4.8 x 4.6 cm. There is a 2.8 x 2.6 x 2.5 cm mass within the uterine fundus which appears more echogenic than on the previous exam, but smaller, previously measuring 4.5 x 3.3 x 3.6 cm. The mass largely obscures, or replaces the individual signature. Nabothian cyst present within the cervix. Adnexa: Both ovaries are visualized. There is normal color flow to the adnexa. There is no ovarian torsion. There is no pelvic ascites or fluid collection. Right ovary measures 2.6 x 1.8 x 2.3 cm. Subcentimeter follicle present within the right ovary. Left ovary measures 2.6 x 2.0 x 1.5 cm. US/US pelvic ovarian doppler IMPRESSION: Interval decrease in size of the uterine fundal mass, but with increased echogenicity. This could represent a degenerating fibroid. The decrease in size is reassuring for benign etiology. Consider nonemergent MRI pelvis without and with contrast to confirm.
--- NOTE | ~2021-10-16 | CT_ITS ---
EXAMINATION: CT ABDOMEN AND PELVIS WITH CONTRAST CLINICAL INFORMATION: Right lower quadrant pain COMPARISON: 07.11.2021 TECHNIQUE: Multidetector volumetric images were obtained from the superior aspect of the liver through the pubic symphysis following administration 85 mL of Omnipaque 350 intravenous contrast. Sagittal and coronal reformatted images were obtained on the technologist's workstation. Oral contrast: No This CT examination was performed using dose optimization techniques as appropriate, variously including the following: *Automated exposure control *Adjustment of mA and/or kV according to patient size (this includes techniques or standardized protocols for targeted exams where dose is matched to indication/reason for exam; i.e. extremities or head) *Use of iterative reconstruction technique DLP: 777 mGy-cm FINDINGS: LUNG BASES: The visualized lung bases are unremarkable. LIVER, GALLBLADDER, AND BILIARY TREE: The liver is normal in size, shape, and attenuation. No focal hepatic lesion or biliary ductal dilatation is present. Gallbladder unremarkable. PANCREAS: Unremarkable. SPLEEN: Unremarkable. ADRENAL GLANDS: Unremarkable. KIDNEYS AND URETERS: The kidneys are normal in size, shape, and attenuation. No hydronephrosis, hydroureter, or calculi seen. No perinephric stranding. BLADDER: Unremarkable. GASTROINTESTINAL TRACT: Scattered left colonic diverticula. No evidence of diverticulitis. The inflammatory changes along the uterine fundus appear unrelated to the adjacent sigmoid colon. Normal appendix. Stomach and small bowel unremarkable. ABDOMINAL WALL: No significant hernia is appreciated. LYMPH NODES: Normal. VASCULAR: Unremarkable. PELVIC VISCERA: Again seen is hypodensity within the uterine fundus having decreased in size from the prior now measuring 3.2 x 3.0 cm, previously 2.9 x 3.5 x 2.8 cm by my measurements. There is layering density suggesting that this represents a hematocrit level. Along the uterine fundus, there is fat stranding nonencapsulated fluid, with attenuation of the uterine fundal myometrium. Ovaries are unremarkable. OSSEOUS STRUCTURES: Unremarkable. CT/CT abdomen pelvis w con IMPRESSION: Decreased size of a heterogeneous fluid collection within the uterine fundus, unclear of its relationship to the endometrial canal. The collection shows dependent density suggesting blood products. Red degeneration of a fibroid is considered, as is hematometra or pyometra also possible. Inflammatory changes and nonspecific fluid along the uterine fundus are nonspecific but may represent trans-myometrial extension this fundal process. Again, endometrial / uterine carcinoma is considered less likely given the decrease in size since the prior exam, though certainly possible. An occult obstructing process or neoplasm within the lower uterine segment is also considered. Recommend gynecological consultation.
--- NOTE | ~2021-10-16 | XR_ITS ---
EXAMINATION: XR CHEST CLINICAL INFORMATION: Chest pain. COMPARISON: Chest radiograph dated from 12/08/2019. TECHNIQUE: 2 views of the chest were obtained. FINDINGS: No significant abnormality is noted involving the heart, lungs, mediastinum, bony thorax or soft tissues. XR/XR chest 2V IMPRESSION: Unremarkable examination.
--- NOTE | 2021-10-16 22:14 | ECG_ITS ---
Test Reason : cp Blood Pressure : / mmHG Vent. Rate : 081 BPM Atrial Rate : 081 BPM P-R Int : 140 ms QRS Dur : 086 ms QT Int : 392 ms P-R-T Axes : 066 024 027 degrees QTc Int : 455 ms Normal sinus rhythm Normal ECG When compared with ECG of 26-JUL-2014 11:19, QT has lengthened Referred By: Generic ED Physician Electronically Signed By:LATA WHIPPLE
[2021-10-16 22:31] VITALS: BP 126/73; PULSE 90; RESP 18; TEMP 36.8; O2SAT 97; BMI 36.0
[2021-10-16 23:30] LABS: Basophils Percent Auto 0.4 % (0-2); Eosinophils Absolute Auto 0.3 X10*3/uL (0.0-0.4); Eosinophils Percent Auto 2.9 % (0-4); Hemoglobin 12.4 g/dl (12.0-16.0); Imm Gran Abs Auto 0.06 X10*3/uL (0.00-0.03); Imm Gran Pct Auto 0.5 % (0.0-0.4); Lymphocytes Absolute Auto 4.2 X10*3/uL (1.2-4.9); MANUAL DIFF FLAG NO; Mean Corpuscular HGB Conc 35.4 g/dl (31.0-35.0); Mean Corpuscular Hemoglobin 33.5 pg (27.0-33.0); Mean Corpuscular Volume 94.6 fL (80.0-98.0); Mean Platelet Volume 9.2 fL (9.4-12.3); Monocytes Absolute Auto 0.8 X10*3/uL (0.1-1.2); Monocytes Percent Auto 6.7 % (2-11); Neutrophils Absolute Auto 5.9 x10*3/uL (2.0-8.3); Neutrophils Percent Auto 52.5 % (45-73); Platelet Count 361 X10*3/uL (160-400); Red Cell Distribution Width 12.4 % (11.0-16.0); White Blood Count 11.3 X10*3/uL (4.8-10.8)
[2021-10-16 23:47] LABS: Anion Gap 11 (12-20); Blood Urea Nitrogen 13 mg/dL (9-16); Calcium 8.9 mg/dL (8.4-10.2); Carbon Dioxide 26 mmol/L (22-29); Chloride 106 mmol/L (96-108); Creatinine Clr Calc Pharmacy 90.9; Estimated Glomerular Filt Rate > 60; Glucose Random 95 mg/dL (60-115); Potassium 3.9 mmol/L (3.3-5.1); Sodium 139 mmol/L (135-145)
[2021-10-16 23:55] LABS: Troponin-I High Sensitivity < 3.5 ng/L (<3.5-17.0)
--- NOTE | 2021-10-17 00:41 | ED.CHESTPAIN ---
HPI - Chest Pain General Chief Complaint: Chest Pain <CARINE Menezes Last Filed: 10/17/21 02:38> Stated Complaint: chest pain <CARINE Menezes Last Filed: 10/17/21 02:38> Time Seen by Provider: 10/17/21 00:41 <CARINE Menezes Last Filed: 10/17/21 02:38> Source: patient <CARINE Menezes Last Filed: 10/17/21 02:38> Mode of arrival: ambulatory <CARINE Menezes Last Filed: 10/17/21 02:38> Limitations: no limitations <CARINE Menezes Last Filed: 10/17/21 02:38> History of Present Illness HPI narrative: 45-year-old female past medical history significant for depression, asthma presenting to the emergency department complaints of chest pain, palpitations and severe abdominal pain that began around 6:00pm. Patient tells me that the chest pain started today it was a stabbing pain to the substernal area that radiated into the left arm, it was severe, stabbing in nature and intermittent she is telling me that she is still having the pain however not as severe. She does not have a cardiac history herself however her father from an [place] at the age of 56 and mother has a history of atrial fibrillation. She tells me when she had this chest pain she became diaphoretic and she felt like her heart was racing. She is also reporting severe abdominal pain to the right lower quadrant. Patient tells me that she has an abnormal mass in her uterus which she is getting an elective hysterectomy for on the she was told to return to the emergency department with new or worsening symptoms or if she felt like the pain was severe. She also reports associated nausea. She denies shortness of breath, vomiting, diarrhea, changes in urination, fevers or chills. <CARINE Menezes Last Filed: 10/17/21 02:38> MD complaint: chest pain <CARINE Menezes Last Filed: 10/17/21 02:38> Related Data Home Medications: Home Medications Medication Instructions Recorded Confirmed albuterol sulfate 90 mcg/actuation 1 inh INHALATION QID 04/15/20 04/18/20 aerosol inhaler (ProAir HFA) bupropion HCl 300 mg 24 hr tablet, 300 mg PO QAM 04/15/20 04/18/20 extended release (Wellbutrin XL) fexofenadine 180 mg tablet 180 mg PO DAILY 04/15/20 04/18/20 (Francoise Allergy) fluticasone propionate 50 1 spray INTRANASAL DAILY 04/15/20 04/18/20 mcg/actuation nasal spray,suspension temazepam 30 mg capsule 30 mg PO BEDTIME PRN 04/15/20 04/18/20 tizanidine 4 mg capsule 4 mg PO BEDTIME 04/15/20 04/18/20 biotin 10,000 mcg capsule mcg PO 04/18/20 04/18/20 bupropion HCl 150 mg tablet,12 hr 150 mg PO DAILY 04/18/20 04/18/20 sustained-release (Wellbutrin SR) ibuprofen 200 mg tablet (Motrin IB) 200 mg PO Q6H PRN 04/18/20 04/18/20 lidocaine 5 % topical ointment 1 applic TOPICAL BEDTIME 04/18/20 04/18/20 multivitamin 1 tab PO DAILY 04/18/20 04/18/20 oxycodone-acetaminophen 2.5 mg-325 1 tab PO Q8H PRN 04/18/20 04/18/20 mg tablet (Percocet) pregabalin 300 mg capsule (Lyrica) 300 mg PO DAILY 04/18/20 04/18/20 quetiapine 25 mg tablet 25 mg PO BEDTIME 04/18/20 04/18/20 valacyclovir 500 mg tablet 0 mg PO 04/18/20 04/18/20 Previous Rx's Medication Instructions Recorded doxycycline hyclate 100 mg capsule 100 mg PO BID 14 Days #28 cap 07/11/21 ketorolac 10 mg tablet 10 mg PO Q6H 5 Days #20 tab 07/11/21 morphine 15 mg immediate release 15 mg PO Q8H PRN #10 tab 10/17/21 tablet ondansetron 4 mg disintegrating 4 mg PO ONCE PRN #10 tab 10/17/21 tablet <CARINE Menezes - Last Filed: 10/17/21 02:38> Allergies/Adverse Reactions: Allergies Allergy/AdvReac Type Severity Reaction Status Date / Time bee pollen [BEE STINGS] Allergy Severe ANAPHYLAXIS Verified 10/16/21 22:30 aluminum hydroxide Allergy Intermediate SWELLING Verified 10/16/21 22:30 [From MAALOX] ciprofloxacin [From CIPRO] Allergy Intermediate RASH Verified 10/16/21 22:30 latex [LATEX] Allergy Intermediate RASH Verified 10/16/21 22:30 bacitracin [BACITRACIN] Allergy Unknown HIVES Verified 10/16/21 22:30 codeine Allergy Unknown unknown Verified 10/16/21 22:30 phenytoin [Dilantin] Allergy Unknown Unknown Verified 10/16/21 22:30 From DILANTIN Allergy Intermediate SKIN Uncoded 10/24/20 15:23 BURNING Maalox Allergy Unknown unkown Uncoded 10/24/20 15:23 <CARINE Menezes - Last Filed: 10/17/21 02:38> Review of Systems Review of Systems: Constitutional : No Weight loss, No Fever, No Chills, No Fatigue, No Malaise ENT/Mouth : No sore throat, No Rhinorrhea Eyes: No Eye Pain, No Swelling, No Redness Cardiovascular : + Chest Pain, No SOB, No Dyspnea on Exertion, No Orthopnea, No Edema, No Palpitations Respiratory : No Cough, No Sputum, No Wheezing Gastrointestinal : No Nausea, No Vomiting, No Diarrhea, No Constipation, + abdominal Pain, No Hematochezia, No Melena Genitourinary : No Dysuria, No Urinary Frequency, No Hematuria, Musculoskeletal : No joint pain, No Myalgias, No Joint Swelling Skin : No Skin Lesions, No rash Neuro : No Weakness, No Numbness, No Dizziness, No Headache Psych : No Anxiety/Panic, No Depression All other systems reviewed and are negative <CARINE Menezes Last Filed: 10/17/21 02:38> Yes all other systems are reviewed and are negative <CARINE Menezes Last Filed: 10/17/21 02:38> [facility] Past Medical History Attestation statement: The following information was validated with the patient. <CARINE Menezes Last Filed: 10/17/21 02:38> Source: old records reviewed and nursing notes reviewed <CARINE Menezes Last Filed: 10/17/21 02:38> Medical History: Medical History Abnormal TSH Acute suppurative thyroiditis Aortic dissection Thyroiditis <CARINE Menezes - Last Filed: 10/17/21 02:38> Surgical History: Surgical History History of back surgery History of carpal tunnel release History of prior ablation treatment History of removal of cyst Tubal ligation status <CARINE Menezes - Last Filed: 10/17/21 02:38> Family History Family History: Family History Father Aortic dissection Throat cancer Mother HTN (hypertension) Brother No problems noted. Brother No problems noted. Sister No problems noted. Sister No problems noted. Son No problems noted. Son No problems noted. Daughter No problems noted. Daughter No problems noted. 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 Oriented X3.? No acute distress.? Head: Normocephalic, atraumatic, no step-offs or deformities Eyes: Pupils equal, round and reactive to light.? ENT: Pharynx normal.? Neck: Normal inspection.? Neck supple.? CVS: Normal heart rate and rhythm.? Pulses normal.? Respiratory: No respiratory distress.? Breath sounds normal.? Abdomen: Soft and nontender.? Skin: Skin warm and dry.? Normal skin color.? Normal skin turgor.? Extremities: No lower extremity edema.? No calf ttp. 5/5 strength to bilateral upper and lower extremities Back: No midline tenderness, no C-spine tenderness, full range of motion, no CVA tenderness bilaterally Neuro: Oriented X 3.? No motor deficit.? No sensory deficit. CN 2-12 intact <CARINE Menezes - Last Filed: 10/17/21 02:38> Course Reevaluation(s) Reevaluation #1: Patient has a slight leukocytosis likely reactive. Chemistry with no acute electrolyte abnormalities. Troponin negative. Lipase within normal limits. Ultrasound pending. Urine pending. CT of the abdomen pelvis pending. Sign out given to Dr. Ware.. <CARINE Menezes - Last Filed: 10/17/21 02:38> Time: 02:36 <CARINE Menezes - Last Filed: 10/17/21 02:38> Reevaluation #2: Reviewed all investigations and then discussed the case with the gynecology service who recommends keeping the patient for observation and Dr Marin will see in the morning. All results discussed with patient bedside as well as a plan. <Sandra Ware MD - Last Filed: 10/17/21 05:35> Time: 04:37 <Sandra Ware MD - Last Filed: 10/17/21 05:35> Reevaluation #3: Patient placed in physician observation because the patient needed more time for consultation by Dr Marin. At the time observation was started the patient's vital signs were stable, patient is alert and oriented, neuro: Nonfocal, CV RRR, lungs clear <Sandra Ware MD - Last Filed: 10/17/21 05:35> Time: 04:38 <Sandra Ware MD - Last Filed: 10/17/21 05:35> MDM - Chest Pain MDM Narrative Medical decision making narrative: [age] yo f presents with chest pain, and abdominal pain both severe nature since 18:00 worsening. Physical examination significant for pain to palpation to right lower quadrant. Clear. Regular rate and rhythm. Neuro nonfocal per patient appears uncomfortable. Plan at this time is to obtain labs, ultrasound, troponin, EKG, cardiac monitoring. Will rule out ACS. Unlikely that this is a PE, patient not hypoxic or tachycardic, no calf tenderness to palpation negative Isidro bilaterally. I will also rule out ovarian torsion, and a ruptured fibroid. <CARINE Menezes - Last Filed: 10/17/21 02:38> Medical Records Data Attestation: I reviewed the patient's medical records. <CARINE Menezes - Last Filed: 10/17/21 02:38> Lab Data Attestation: I reviewed the patient's lab results. <CARINE Menezes - Last Filed: 10/17/21 02:38> Result diagrams: : 10/16/21 23:26 10/16/21 23:26 <CARINE Menezes - Last Filed: 10/17/21 02:38> Labs: Lab Results 10/16/21 10/16/21 10/16/21 Range/Units 23:25 23:26 23:26 WBC 11.3 H (4.8-10.8) X10*3/uL RBC 3.70 L (4.20-5.50) X10*6/uL Hgb 12.4 (12.0-16.0) g/dl Hct 35.0 L (37.0-47.0) % MCV 94.6 (80.0-98.0) fL MCH 33.5 H (27.0-33.0) pg MCHC 35.4 H (31.0-35.0) g/dl RDW 12.4 (11.0-16.0) % Plt Count 361 (160-400) X10*3/uL MPV 9.2 L (9.4-12.3) fL Immature Gran % (Auto) 0.5 H (0.0-0.4) % Neut % (Auto) 52.5 (45-73) % Lymph % (Auto) 37.0 (20-40) % [place] % (Auto) 6.7 (2-11) % Eos % (Auto) 2.9 (0-4) % Baso % (Auto) 0.4 (0-2) % Lymph # (Auto) 4.2 (1.2-4.9) X10*3/uL [place] # (Auto) 0.8 (0.1-1.2) X10*3/uL Eos # (Auto) 0.3 (0.0-0.4) X10*3/uL Baso # (Auto) 0.0 (0.0-0.2) X10*3/uL Abs Immat Gran (auto) 0.06 H (0.00-0.03) X10*3/uL Absolute Neuts (auto) 5.9 (2.0-8.3) x10*3/uL Absolute Nucleated RBC 0.000 (0.0-0.012) X10*3/uL Nucleated RBC % (auto) 0.0 (0.0-0.2) /100WBC Sodium 139 (135-145) mmol/L Potassium 3.9 (3.3-5.1) mmol/L Chloride 106 (96-108) mmol/L Carbon Dioxide 26 (22-29) mmol/L Anion Gap 11 L (12-20) BUN 13 (9-16) mg/dL Creatinine 0.75 (0.5-1.4) mg/dL Estim Creat Clear Calc 90.9 Estimated GFR > 60 Random Glucose 95 (60-115) mg/dL Calcium 8.9 (8.4-10.2) mg/dL Troponin I High Sens < 3.5 (<3.5-17.0) ng/L Lipase 40 (8-78) U/L Urine Color Urine Appearance Urine pH (5.0-8.0) Ur Specific Angie (1.005-1.025) Urine Protein (NEG-TRACE) MG/DL Urine Glucose (UA) (NEG) MG/DL Urine Ketones (NEG) MG/DL Urine Blood (NEG) Urine Nitrite (NEG) Ur Leukocyte Esterase (NEG) 10/17/21 Range/Units 03:36 WBC (4.8-10.8) X10*3/uL RBC (4.20-5.50) X10*6/uL Hgb (12.0-16.0) g/dl Hct (37.0-47.0) % MCV (80.0-98.0) fL MCH (27.0-33.0) pg MCHC (31.0-35.0) g/dl RDW (11.0-16.0) % Plt Count (160-400) X10*3/uL MPV (9.4-12.3) fL Immature Gran % (Auto) (0.0-0.4) % Neut % (Auto) (45-73) % Lymph % (Auto) (20-40) % [place] % (Auto) (2-11) % Eos % (Auto) (0-4) % Baso % (Auto) (0-2) % Lymph # (Auto) (1.2-4.9) X10*3/uL [place] # (Auto) (0.1-1.2) X10*3/uL Eos # (Auto) (0.0-0.4) X10*3/uL Baso # (Auto) (0.0-0.2) X10*3/uL Abs Immat Gran (auto) (0.00-0.03) X10*3/uL Absolute Neuts (auto) (2.0-8.3) x10*3/uL Absolute Nucleated RBC (0.0-0.012) X10*3/uL Nucleated RBC % (auto) (0.0-0.2) /100WBC Sodium (135-145) mmol/L Potassium (3.3-5.1) mmol/L Chloride (96-108) mmol/L Carbon Dioxide (22-29) mmol/L Anion Gap (12-20) BUN (9-16) mg/dL Creatinine (0.5-1.4) mg/dL Estim Creat Clear Calc Estimated GFR Random Glucose (60-115) mg/dL Calcium (8.4-10.2) mg/dL Troponin I High Sens (<3.5-17.0) ng/L Lipase (8-78) U/L Urine Color STRAW Urine Appearance CLEAR Urine pH 6.5 (5.0-8.0) Ur Specific Angie <= 1.005 (1.005-1.025) Urine Protein NEG (NEG-TRACE) MG/DL Urine Glucose (UA) NEG (NEG) MG/DL Urine Ketones NEG (NEG) MG/DL Urine Blood NEG (NEG) Urine Nitrite NEG (NEG) Ur Leukocyte Esterase NEG (NEG) <CARINE Menezes - Last Filed: 10/17/21 02:38> Lab Results 10/16/21 10/16/21 10/16/21 Range/Units 23:25 23:26 23:26 WBC 11.3 H (4.8-10.8) X10*3/uL RBC 3.70 L (4.20-5.50) X10*6/uL Hgb 12.4 (12.0-16.0) g/dl Hct 35.0 L (37.0-47.0) % MCV 94.6 (80.0-98.0) fL MCH 33.5 H (27.0-33.0) pg MCHC 35.4 H (31.0-35.0) g/dl RDW 12.4 (11.0-16.0) % Plt Count 361 (160-400) X10*3/uL MPV 9.2 L (9.4-12.3) fL Immature Gran % (Auto) 0.5 H (0.0-0.4) % Neut % (Auto) 52.5 (45-73) % Lymph % (Auto) 37.0 (20-40) % [place] % (Auto) 6.7 (2-11) % Eos % (Auto) 2.9 (0-4) % Baso % (Auto) 0.4 (0-2) % Lymph # (Auto) 4.2 (1.2-4.9) X10*3/uL [place] # (Auto) 0.8 (0.1-1.2) X10*3/uL Eos # (Auto) 0.3 (0.0-0.4) X10*3/uL Baso # (Auto) 0.0 (0.0-0.2) X10*3/uL Abs Immat Gran (auto) 0.06 H (0.00-0.03) X10*3/uL Absolute Neuts (auto) 5.9 (2.0-8.3) x10*3/uL Absolute Nucleated RBC 0.000 (0.0-0.012) X10*3/uL Nucleated RBC % (auto) 0.0 (0.0-0.2) /100WBC Sodium 139 (135-145) mmol/L Potassium 3.9 (3.3-5.1) mmol/L Chloride 106 (96-108) mmol/L Carbon Dioxide 26 (22-29) mmol/L Anion Gap 11 L (12-20) BUN 13 (9-16) mg/dL Creatinine 0.75 (0.5-1.4) mg/dL Estim Creat Clear Calc 90.9 Estimated GFR > 60 Random Glucose 95 (60-115) mg/dL Calcium 8.9 (8.4-10.2) mg/dL Troponin I High Sens < 3.5 (<3.5-17.0) ng/L Lipase 40 (8-78) U/L Urine Color Urine Appearance Urine pH (5.0-8.0) Ur Specific Angie (1.005-1.025) Urine Protein (NEG-TRACE) MG/DL Urine Glucose (UA) (NEG) MG/DL Urine Ketones (NEG) MG/DL Urine Blood (NEG) Urine Nitrite (NEG) Ur Leukocyte Esterase (NEG) 10/17/21 Range/Units 03:36 WBC (4.8-10.8) X10*3/uL RBC (4.20-5.50) X10*6/uL Hgb (12.0-16.0) g/dl Hct (37.0-47.0) % MCV (80.0-98.0) fL MCH (27.0-33.0) pg MCHC (31.0-35.0) g/dl RDW (11.0-16.0) % Plt Count (160-400) X10*3/uL MPV (9.4-12.3) fL Immature Gran % (Auto) (0.0-0.4) % Neut % (Auto) (45-73) % Lymph % (Auto) (20-40) % [place] % (Auto) (2-11) % Eos % (Auto) (0-4) % Baso % (Auto) (0-2) % Lymph # (Auto) (1.2-4.9) X10*3/uL [place] # (Auto) (0.1-1.2) X10*3/uL Eos # (Auto) (0.0-0.4) X10*3/uL Baso # (Auto) (0.0-0.2) X10*3/uL Abs Immat Gran (auto) (0.00-0.03) X10*3/uL Absolute Neuts (auto) (2.0-8.3) x10*3/uL Absolute Nucleated RBC (0.0-0.012) X10*3/uL Nucleated RBC % (auto) (0.0-0.2) /100WBC Sodium (135-145) mmol/L Potassium (3.3-5.1) mmol/L Chloride (96-108) mmol/L Carbon Dioxide (22-29) mmol/L Anion Gap (12-20) BUN (9-16) mg/dL Creatinine (0.5-1.4) mg/dL Estim Creat Clear Calc Estimated GFR Random Glucose (60-115) mg/dL Calcium (8.4-10.2) mg/dL Troponin I High Sens (<3.5-17.0) ng/L Lipase (8-78) U/L Urine Color STRAW Urine Appearance CLEAR Urine pH 6.5 (5.0-8.0) Ur Specific Angie <= 1.005 (1.005-1.025) Urine Protein NEG (NEG-TRACE) MG/DL Urine Glucose (UA) NEG (NEG) MG/DL Urine Ketones NEG (NEG) MG/DL Urine Blood NEG (NEG) Urine Nitrite NEG (NEG) Ur Leukocyte Esterase NEG (NEG) <Sandra Ware MD - Last Filed: 10/17/21 05:35> ECG Data ECG #1: Attestation: I personally reviewed and interpreted this ECG as follows: <CARINE Menezes - Last Filed: 10/17/21 02:38> ECG interpretation date: 10/17/21 <CARINE Menezes Last Filed: 10/17/21 02:38> ECG interpretation time: 02:37 <CARINE Menezes Last Filed: 10/17/21 02:38> Prior ECG tracings: available for review <CARINE Menezes Last Filed: 10/17/21 02:38> Interpretation: Ventricular rate of 81, [place] normal, QRS normal, QT/QTC normal. EKG shows normal sinus rhythm. No ST elevations or inversions concerning for ischemia. No previous EKGs to compare with. <CARINE Menezes Last Filed: 10/17/21 02:38> Critical Care Time Critical Care Time Critical Care Time: No <CARINE Menezes Last Filed: 10/17/21 02:38> Discharge Plan Discharge Clinical Impression: Pelvic pain, Nausea, Abdominal pain, Chest pain not due to acute coronary syndrome <CARINE Menezes Last Filed: 10/17/21 02:38> Patient Disposition: Still a Patient <CARINE Menezes Last Filed: 10/17/21 02:38> Instructions: Acute Nausea and Vomiting (ED), Abdominal Pain (ED), Chest Wall Pain (ED), Pelvic Pain (ED) <CARINE Menezes Last Filed: 10/17/21 02:38> Additional Instructions: Take your medications as prescribed. If you were prescribed antibiotics today, it is important that you take your medication to their entirety, do not skip any doses, do not finish them early. Follow-up with your primary care provider this week. Return to the emergency department with new or worsening symptoms. Such as fevers, chills, chest pain, shortness of breath, nausea, vomiting, dizziness, headache, vision changes, lethargy In case of emergency call 911 I attest that I have reviewed patients Mass[employer], and at the time prescribing the patient a controlled substance is appropriate based off of patients diagnosis and treatment plan. <CARINE Menezes Last Filed: 10/17/21 02:38> Prescriptions: New ondansetron 4 mg tablet,disintegrating 4 mg PO ONCE PRN (Reason: nausea and vomiting) Qty: 10 0RF morphine 15 mg tablet 15 mg PO Q8H PRN (Reason: pain) Qty: 10 0RF No Action ketorolac 10 mg tablet 10 mg PO Q6H 5 Days Qty: 20 0RF doxycycline hyclate 100 mg capsule 100 mg PO BID 14 Days Qty: 28 0RF multivitamin Tablet 1 tab PO DAILY 0RF bupropion HCl [Wellbutrin SR] 150 mg tablet sustained-release 12 hr 150 mg PO DAILY 0RF ibuprofen [Motrin IB] 200 mg tablet 200 mg PO Q6H PRN0RF biotin 10,000 mcg capsule PO 0RF lidocaine 5 % ointment 1 applic topical BEDTIME 0RF oxycodone-acetaminophen [Percocet] 2.5-325 mg tablet 1 tab PO Q8H PRN0RF pregabalin [Lyrica] 300 mg capsule 300 mg PO DAILY 0RF quetiapine 25 mg tablet 25 mg PO BEDTIME 0RF valacyclovir 500 mg tablet 0 mg PO 0RF tizanidine 4 mg capsule 4 mg PO BEDTIME 0RF albuterol sulfate [ProAir HFA] 90 mcg/actuation HFA aerosol inhaler 1 inh inhalation QID 0RF fluticasone propionate 50 mcg/actuation spray,suspension 1 spray intranasal DAILY 0RF Rx Instructions: administer into each nostril temazepam 30 mg capsule 30 mg PO BEDTIME PRN0RF fexofenadine [Francoise Allergy] 180 mg tablet 180 mg PO DAILY 0RF bupropion HCl [Wellbutrin XL] 300 mg tablet extended release 24 hr 300 mg PO QAM 0RF <CARINE Menezes - Last Filed: 10/17/21 02:38> Referrals: Physician,Ney J [Primary Care Provider] - 2 days Murphy Marin MD [Physician] - 2 days <CARINE Menezes - Last Filed: 10/17/21 02:38> Stand Alone Forms: Work/School Release <CARINE Menezes - Last Filed: 10/17/21 02:38>
[2021-10-17 00:55] LABS: Lipase 40 U/L (8-78)
[2021-10-17 00:57] VITALS: BP 160/94; PULSE 84; RESP 16; O2SAT 99
[2021-10-17] MEDS: Morphine Sulfate 4 MG/ML CARTRIDGE IVPUSH (01:02)
[2021-10-17] MEDS: ondansetron HCL 4 MG/2 ML VIAL IVPUSH (01:03)
--- NOTE | 2021-10-17 01:35 | PC.NURSE ---
Pt reports nausea/dry heaves resolving.
[2021-10-17 02:25] VITALS: BP 142/76; PULSE 83; RESP 15; O2SAT 99
--- NOTE | 2021-10-17 02:29 | PC.NURSE ---
Pt reports RLQ ABD pain getting worse, made aware.
[2021-10-17] MEDS: Morphine Sulfate 2 MG/ML CARTRIDGE IVPUSH (02:47)
[2021-10-17] MEDS: 0.9 % Sodium Chloride 1,000 ML 999 ML IV (02:48)
[2021-10-17] MEDS: iohexoL 350 MG/ML 100 ML INFUS..BTL 85 ML IV (03:22)
[2021-10-17 03:41] LABS: Appearance Urine CLEAR; Color Urine STRAW; Glucose Urine UA NEG (NEG); Leukocyte Esterase Urine NEG (NEG); Nitrite Urine NEG (NEG); PH 6.5 (5.0-8.0); Specific Gravity - Urine <= 1.005 (1.005-1.025); Urine Blood NEG (NEG); Urine Ketones NEG (NEG); Urine Protein NEG (NEG-TRACE)
--- NOTE | 2021-10-17 04:21 | PC.NURSE ---
Pt reports 04/27 RLQ PAIN, MADE AWARE
[2021-10-17] MEDS: Ketorolac Tromethamine 30 MG/ML VIAL 15 MG IVPUSH (04:35)
[2021-10-17 04:36] VITALS: BP 144/88; PULSE 80; RESP 14; O2SAT 97
[2021-10-17 06:00] VITALS: BP 127/47; PULSE 74; RESP 14; O2SAT 97
--- NOTE | 2021-10-17 07:15 | P.CONOB_ITS ---
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 The patient started having pelvic pain few months ago that startedaround the time after salpingectomy, in November of 2020 and has a history of endometrial ablation done around 5 years ago. The patient was seen in the emergency room few months ago with similar presentation and CT scan then showed a right fluid collection the right uterine cornua, the differential diagnosis was malignancy versus infection versus possible hematometra secondary to obstructed endometrial cavity , post endometrial ablation. Endometrial biopsy was done in the office was negative for hyperplasia and/or malignancy or atypia, and the patient was treated with antibiotics, and her pain improved markedly afterwards. The patient since then was seen at [facility] and is currently scheduled for an elective hysterectomyin 2 weeks for her pelvic pain. 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 Systems Review of Systems ROS Unobtainable: All systems reviewed & are unremarkable except as noted in HPI and below Cardiovascular: Denies Palpatations, Loss of consciousness or Chest pain Respiratory: Denies Cough, Wheezing or Shortness of breath Musculoskeletal: Denies Low back pain Gastrointestinal: Denies Heartburn, Constipation, Diarrhea, Nausea or Vomiting Genitourinary: Denies Pain with urination, Burning with urination or Urinary frequency Neurological: Denies Migranes Psychological: Denies Depression OB [facility] Past Medical History Medical History Abnormal TSH Acute suppurative thyroiditis Aortic dissection Thyroiditis Family History Family History Father Aortic dissection Throat cancer Mother HTN (hypertension) Brother No problems noted. Brother No problems noted. Sister No problems noted. Sister No problems noted. Son No problems noted. Son No problems noted. Daughter No problems noted. Daughter No problems noted. 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 Allergies Allergy/AdvReac Type Severity Reaction Status Date / Time bee pollen [BEE STINGS] Allergy Severe ANAPHYLAXIS Verified 10/16/21 22:30 aluminum hydroxide Allergy Intermediate SWELLING Verified 10/16/21 22:30 [From MAALOX] ciprofloxacin [From CIPRO] Allergy Intermediate RASH Verified 10/16/21 22:30 latex [LATEX] Allergy Intermediate RASH Verified 10/16/21 22:30 bacitracin [BACITRACIN] Allergy Unknown HIVES Verified 10/16/21 22:30 codeine Allergy Unknown unknown Verified 10/16/21 22:30 phenytoin [Dilantin] Allergy Unknown Unknown Verified 10/16/21 22:30 From DILANTIN Allergy Intermediate SKIN Uncoded 10/24/20 15:23 BURNING Maalox Allergy Unknown unkown Uncoded 10/24/20 15:23 Home Medications Medication Instructions Recorded Confirmed Last Taken Type albuterol sulfate 90 mcg/actuation 1 inh INHALATION QID 04/15/20 04/18/20 Unknown History aerosol inhaler (ProAir HFA) bupropion HCl 300 mg 24 hr tablet, 300 mg PO QAM 04/15/20 04/18/20 Unknown History extended release (Wellbutrin XL) fexofenadine 180 mg tablet 180 mg PO DAILY 04/15/20 04/18/20 Unknown History (Francoise Allergy) fluticasone propionate 50 1 spray INTRANASAL DAILY 04/15/20 04/18/20 Unknown History mcg/actuation nasal spray,suspension temazepam 30 mg capsule 30 mg PO BEDTIME PRN 04/15/20 04/18/20 Unknown History tizanidine 4 mg capsule 4 mg PO BEDTIME 04/15/20 04/18/20 Unknown History biotin 10,000 mcg capsule mcg PO 04/18/20 04/18/20 Unknown History bupropion HCl 150 mg tablet,12 hr 150 mg PO DAILY 04/18/20 04/18/20 Unknown History sustained-release (Wellbutrin SR) ibuprofen 200 mg tablet (Motrin IB) 200 mg PO Q6H PRN 04/18/20 04/18/20 Unknown History lidocaine 5 % topical ointment 1 applic TOPICAL BEDTIME 04/18/20 04/18/20 Unknown History multivitamin 1 tab PO DAILY 04/18/20 04/18/20 Unknown History oxycodone-acetaminophen 2.5 mg-325 1 tab PO Q8H PRN 04/18/20 04/18/20 Unknown History mg tablet (Percocet) pregabalin 300 mg capsule (Lyrica) 300 mg PO DAILY 04/18/20 04/18/20 Unknown History quetiapine 25 mg tablet 25 mg PO BEDTIME 04/18/20 04/18/20 Unknown History valacyclovir 500 mg tablet 0 mg PO 04/18/20 04/18/20 Unknown History CUSTOMER ADVOCACY MANAGER Physical Exam Vitals Vital signs: Temp Pulse Resp BP Pulse Ox 98.2 F 74 14 127/47 L 97 10/16/21 22:31 10/17/21 06:00 10/17/21 06:00 10/17/21 06:00 10/17/21 06:00 BMI result Body Mass Index 36.0 Constitutional General Appearance: Healthy appearing, Well-nourished and Well-developed Psychiatric Mood and Affect: active and alert, normal mood and normal affect Skin Appearance: No rashes and No lesions Lungs Respiratory Effort: No intercostal retractions Auscultation: Clear to auscultation Cardiovascular Auscultation: RRR Abdomen Auscultation/Inspection/Palpation: Normal bowel sounds, Soft, Non-distended and Tenderness ( Mild right lower quadrant tenderness no guarding or rebound) Female Genitalia (Pelvic) Exam: Deferred Vulva: No lesions Cervix: Cervical motion tenderness Adnexa/Parametria: Adnexal Tenderness: Right CUSTOMER ADVOCACY MANAGER - Results Labs CBC & Chem 7: 10/16/21 23:26 10/16/21 23:26 Labs: Short CBC 10/16/21 Range/Units 23:26 WBC 11.3 H (4.8-10.8) X10*3/uL Hgb 12.4 (12.0-16.0) g/dl Hct 35.0 L (37.0-47.0) % Plt Count 361 (160-400) X10*3/uL BMP 10/16/21 23:26 Sodium 139 Potassium 3.9 Chloride 106 Carbon Dioxide 26 BUN 13 Creatinine 0.75 Calcium 8.9 Urine 10/17/21 Range/Units 03:36 Urine Color STRAW Urine Appearance CLEAR Urine pH 6.5 (5.0-8.0) Ur Specific [place] <= 1.005 (1.005-1.025) Urine Protein NEG (NEG-TRACE) MG/DL Urine Glucose (UA) NEG (NEG) MG/DL Imaging CT scan - pelvis: Radiologist's impression: ITS Impressions Chest X-Ray 10/16/21 22:26 IMPRESSION: Unremarkable examination. Doppler Study Ultrasound 10/17/21 01:53 IMPRESSION: Interval decrease in size of the uterine fundal mass, but with increased echogenicity. This could represent a degenerating fibroid. The decrease in size is reassuring for benign etiology. Consider nonemergent MRI pelvis without and with contrast to confirm. Pelvic/Transvag US 10/17/21 01:53 IMPRESSION: Interval decrease in size of the uterine fundal mass, but with increased echogenicity. This could represent a degenerating fibroid. The decrease in size is reassuring for benign etiology. Consider nonemergent MRI pelvis without and with contrast to confirm. Abdomen/Pelvis CT 10/17/21 03:10 IMPRESSION: Decreased size of a heterogeneous fluid collection within the uterine fundus, unclear of its relationship to the endometrial canal. The collection shows dependent density suggesting blood products. Red degeneration of a fibroid is considered, as is hematometra or pyometra also possible. Inflammatory changes and nonspecific fluid along the uterine fundus are nonspecific but may represent trans-myometrial extension this fundal process. Again, endometrial / uterine carcinoma is considered less likely given the decrease in size since the prior exam, though certainly possible. An occult obstructing process or neoplasm within the lower uterine segment is also considered. Recommend gynecological consultation. Assessment and Plan (1) Pelvic pain in female: Status: Acute GC and chlamydia with Trichomonas collected, Discussed with the patient differential diagnosis of her symptoms including but not limited to: pyometra, post ablation syndrome and others. I recommended the following to Dr. Bojorquez, urine test if negative, discharge the patient on Levaquin 500 mg p.o. q.d. with Flagyl 500 mg p.o. b.i.d.for 10 days, the patient is to call back or come to emergency room in case of fever above 100.4, nausea or vomiting, persistence or exacerbation of her pelvic pain and to follow-up with her OBGYN at [facility] I spent a total of 25 minutes reviewing the chart, examining and counseling the patient and documenting in the medical record
[2021-10-17 07:41] LABS: UPreg QC Valid YES; Urine Pregnancy NEGATIVE (NEGATIVE)
== END 2021-10-17 07:44 | disposition home or self-care (01) ==
PROVIDERS: Emergency Medicine; Physician Assistant; Emergency Provider Student in an Organized Health Care Education/Training Program
DX: R10.2 Pelvic and perineal pain (principal); R07.9 Chest pain, unspecified; R11.0 Nausea
CPT/HCPCS: 36415; 71046; 74177; 76830; 76856; 80048; 81003; 81025; 83690; 84484; 85025; 93005; 93975; 96361; 96374; 96375; 96376; 99285; J1885; J2270; J2405; Q9967

== ENCOUNTER → 2021-10-24 10:05 | Outpatient (BNVA) | payer OTHER, SELFPAY | PROVIDERS: Visit Provider Physician Assistant | DX: M77.11 Lateral epicondylitis, right elbow (principal) | CPT/HCPCS: 20551; 99212; J1100 ==

== ENCOUNTER → 2022-01-28 13:35 | Outpatient (BNVA) | payer OTHER, SELFPAY | PROVIDERS: Visit Provider Physician Assistant | DX: M77.01 Medial epicondylitis, right elbow (principal) | CPT/HCPCS: 20610; 99212; J1020 ==

== ENCOUNTER → 2022-05-29 08:35 | Outpatient (BNVA) | payer OTHER, SELFPAY | PROVIDERS: Visit Provider Physician Assistant | DX: M77.11 Lateral epicondylitis, right elbow (principal) | CPT/HCPCS: 20550; 20551; 99212; J1020 ==

== ENCOUNTER → 2022-09-17 10:31 | Outpatient (BNVA) | payer OTHER, SELFPAY | PROVIDERS: Visit Provider Physician Assistant | DX: M65.311 Trigger thumb, right thumb (principal) | CPT/HCPCS: 99212 ==

== ENCOUNTER → 2022-10-07 10:37 | Outpatient (BNVA) | payer OTHER, SELFPAY | PROVIDERS: Visit Provider Physician Assistant | DX: M65.311 Trigger thumb, right thumb (principal) | CPT/HCPCS: 99212; J1100 ==

== ENCOUNTER → 2022-10-14 10:17 | Outpatient (BNVA) | payer OTHER, SELFPAY | PROVIDERS: Visit Provider Physician Assistant | DX: M77.11 Lateral epicondylitis, right elbow (principal); M65.311 Trigger thumb, right thumb | CPT/HCPCS: 20550; 20551; 99212; J1100 ==

== ENCOUNTER → 2022-10-22 13:27 | Outpatient (BNVA) | payer OTHER, MEDICAID, SELFPAY | PROVIDERS: Visit Provider Orthopaedic Surgery | DX: M77.11 Lateral epicondylitis, right elbow (principal) | CPT/HCPCS: 99212 ==

== ENCOUNTER → 2022-11-03 14:29 | Outpatient (BNVA) | payer OTHER, SELFPAY | PROVIDERS: PCP Internal Medicine; Visit Provider Orthopaedic Surgery | DX: Z01.818 Encounter for other preprocedural examination (principal); M65.311 Trigger thumb, right thumb | CPT/HCPCS: 99212 ==

== ENCOUNTER 2022-11-09 08:50 | Day surgery (SDC) | payer OTHER, SELFPAY ==
--- NOTE | 2022-11-06 13:46 | HO.ANESPROP2 ---
HPI - Anesthesia Eval Consult details Narrative: 47yo F for Right Thumb Trigger Release PMFSH Active Problems Active Problems: All Active Problems (Updated 09/17/22 @ 10:58 by Flo Marley) Trigger finger of right thumb (Acute) Pelvic pain in female (Acute) Lateral epicondylitis, right elbow (Acute) Medial epicondylitis of right elbow (Acute) Thyroiditis (Acute) Abnormal TSH (Acute) Right tennis elbow (Acute) Neuropathy of right hand (Acute) Sciatica, right side (Acute) Chronic low back pain (Acute) Insomnia (Acute) Depression (Acute) Allergies (Acute) Asthma (Acute) Hypercholesteremia (Acute) Obesity (BMI 30.0-34.9) (Acute) Past Medical History Medical History Abnormal TSH Acute suppurative thyroiditis Aortic dissection Thyroiditis Family History Family History Father Aortic dissection Throat cancer Mother HTN (hypertension) Brother No problems noted. Brother No problems noted. Sister No problems noted. Sister No problems noted. Son No problems noted. Son No problems noted. Daughter No problems noted. Daughter No problems noted. 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 Allergies Allergy/AdvReac Type Severity Reaction Status Date / Time bee pollen [BEE STINGS] Allergy Severe ANAPHYLAXIS Verified 11/03/22 15:01 aluminum hydroxide Allergy Intermediate Anaphylaxis Verified 11/09/22 09:37 [From MAALOX] ciprofloxacin [From CIPRO] Allergy Intermediate RASH Verified 11/03/22 15:01 latex [LATEX] Allergy Intermediate RASH Verified 11/03/22 15:01 bacitracin [BACITRACIN] Allergy Unknown HIVES Verified 11/03/22 15:01 codeine Allergy Unknown unknown Verified 11/03/22 15:01 phenytoin [Dilantin] Allergy Unknown skin Verified 11/06/22 09:38 burning Home Medications Medication Instructions Recorded Confirmed Last Taken Type albuterol sulfate 90 mcg/actuation 1 inh inhalation QID PRN Shortness 04/15/20 11/09/22 Unknown History aerosol inhaler (ProAir HFA) Of Breath fexofenadine 180 mg tablet 180 mg PO BID 04/15/20 11/09/22 Unknown History (Francoise Allergy) fluticasone propionate 50 1 spray intranasal DAILY 04/15/20 11/09/22 Unknown History mcg/actuation nasal spray,suspension temazepam 30 mg capsule 30 mg PO BEDTIME PRN Muscle Spasm 04/15/20 11/09/22 Unknown History tizanidine 4 mg capsule 4 mg PO BEDTIME 04/15/20 11/09/22 Unknown History biotin 10,000 mcg capsule 10,000 mcg PO DAILY 04/18/20 11/09/22 Unknown History bupropion HCl 150 mg tablet,12 hr 300 mg PO DAILY 04/18/20 11/09/22 Unknown History sustained-release (Wellbutrin SR) lidocaine 5 % topical ointment 1 applic topical BEDTIME 04/18/20 11/09/22 Unknown History multivitamin 1 tab PO DAILY 04/18/20 11/09/22 Unknown History pregabalin 300 mg capsule (Lyrica) 300 mg PO BID 04/18/20 11/09/22 Unknown History valacyclovir 500 mg tablet 500 mg PO DAILY 04/18/20 11/09/22 Unknown History metformin 500 mg tablet 500 mg PO DAILY 09/17/22 11/09/22 Unknown History hydroxyzine pamoate 50 mg capsule 50 mg PO BEDTIME 11/09/22 11/09/22 Unknown History lamotrigine 25 mg tablet 25 mg PO DAILY 11/09/22 11/09/22 Unknown History Exam Exam Date and Time: November 06, 2022 534 Assessment and Plan Assessment Anesthesia Assessment: Chart Reviewed
[2022-11-09] VITALS (8 sets, daily range): BP systolic 123–133; BP diastolic 66–83; PULSE 79–92; RESP 16–18; TEMP 36.4–36.8; O2SAT 96–99; BMI 38.0
--- NOTE | 2022-11-09 09:43 | MHC.SHP ---
Pre-Procedural Eval Section A Date of Service: 11/09/22 The patient is an INPATIENT: No Changes since office visit: No Cold of Flu in the past 2 weeks, No New Medical Problems, No Changes in Medication and No Patient answered all questions The History & Physical has been completed within 30 days and I have reviewed it.: Yes Section B Chief Complaint: Trigger thumb, right thumb Allergies: Allergies Allergy/AdvReac Type Severity Reaction Status Date / Time bee pollen [BEE STINGS] Allergy Severe ANAPHYLAXIS Verified 11/03/22 15:01 aluminum hydroxide Allergy Intermediate Anaphylaxis Verified 11/09/22 09:37 [From MAALOX] ciprofloxacin [From CIPRO] Allergy Intermediate RASH Verified 11/03/22 15:01 latex [LATEX] Allergy Intermediate RASH Verified 11/03/22 15:01 bacitracin [BACITRACIN] Allergy Unknown HIVES Verified 11/03/22 15:01 codeine Allergy Unknown unknown Verified 11/03/22 15:01 phenytoin [Dilantin] Allergy Unknown skin Verified 11/06/22 09:38 burning Plan I have reviewed the history and physical and performed a pertinent physical examination on my patient. No changes have occurred unless specified. Time Spent With Patient Time: Total time managing care of this patient today ____ minutes.
--- NOTE | 2022-11-09 09:44 | P.OP_ITS ---
Operative Note Operative Note Date of Service: 11/09/22 Narrative: Operative Note Preop diagnosis: 1. Right thumb Trigger finger Postop diagnosis: 1. Right thumb Trigger finger Procedure: 1. Right thumb A1 jonatan release Surgeon: Vashti Kang MD Anesthesia: local block using 1% lidocaine with epinephrine Findings: No locking or catching after A1 jonatan release EBL: Less than 5 mL Tourniquet time: 3 minutes Specimens: None Complications: None Disposition: Brought to recovery room in stable condition Plan: Follow-up for 10-14 days for wound check and suture removal Indications: The patient is 47 years old, with a right thumb trigger finger that has been unresponsive to nonoperative management. The risks and benefits of operative treatment including but not limited to risk of damage to blood vessels, nerves, tendons, infection, persistent pain, persistent symptoms, recurrence or possible need for additional surgery were discussed with the patient and the patient wishes to proceed with surgery. She was very anxious about surgery and wanted to proceed with general anesthesia. Procedure: Once consent was obtained patient was brought back to the operating suite placed on the operating table in a supine position. Anesthesia was initiated by the anesthesia team. A tourniquet was applied the proximal aspect of her right upper extremity in the limb was prepped and draped in a standard surgical fashion. The limb was elevated and exsanguinated with an Esmarch bandage the tourniquet inflated to 250 mmHg for a total tourniquet time of 3 minutes A 1.5 cm oblique incision was made centered over the A1 jonatan of the right thumb . The incision was made through the skin to the subcutaneous tissues using a #15 blade. Careful dissection was made down to the level of the A1 jonatan using tenotomy scissors, with care being taken to protect the nearby neurovascular structures. A longitudinal incision was made in the A1 jonatan 1st using a #15 blade, then using tenotomy scissors under direct visualization. The A1 jonatan was noted to be thickened. Following our A1 jonatan release, we no longer saw any locking or catching of the digit with flexion and extension. Once satisfied with our A1 jonatan release the wound was copiously irrigated with normal saline, the tourniquet was deflated and hemostasis was obtained with a brief period of local pressure. The skin edges were reapproximated with some 5.0 nylon suture materi al and a sterile dressing was applied. The patient appears to have tolerated the procedure well and with no complications. All digits were well vascularized at the conclusion of the case.
[2022-11-09] MEDS: Lactated Ringers 1,000 ML 100 ML IVCONT (09:56)
--- NOTE | 2022-11-09 10:00 | P.CONAN_ITS ---
[facility] Active Problems Active Problems: All Active Problems (Updated 09/17/22 @ 10:58 by Flo Marley) Trigger finger of right thumb (Acute) Pelvic pain in female (Acute) Lateral epicondylitis, right elbow (Acute) Medial epicondylitis of right elbow (Acute) Thyroiditis (Acute) Abnormal TSH (Acute) Right tennis elbow (Acute) Neuropathy of right hand (Acute) Sciatica, right side (Acute) Chronic low back pain (Acute) Insomnia (Acute) Depression (Acute) Allergies (Acute) Asthma (Acute) Hypercholesteremia (Acute) Obesity (BMI 30.0-34.9) (Acute) Past Medical History Medical History Abnormal TSH Acute suppurative thyroiditis Aortic dissection Thyroiditis Family History Family History Father Aortic dissection Throat cancer Mother HTN (hypertension) Brother No problems noted. Brother No problems noted. Sister No problems noted. Sister No problems noted. Son No problems noted. Son No problems noted. Daughter No problems noted. Daughter No problems noted. 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 Allergies Allergy/AdvReac Type Severity Reaction Status Date / Time bee pollen [BEE STINGS] Allergy Severe ANAPHYLAXIS Verified 11/03/22 15:01 aluminum hydroxide Allergy Intermediate Anaphylaxis Verified 11/09/22 09:37 [From MAALOX] ciprofloxacin [From CIPRO] Allergy Intermediate RASH Verified 11/03/22 15:01 latex [LATEX] Allergy Intermediate RASH Verified 11/03/22 15:01 bacitracin [BACITRACIN] Allergy Unknown HIVES Verified 11/03/22 15:01 codeine Allergy Unknown unknown Verified 11/03/22 15:01 phenytoin [Dilantin] Allergy Unknown skin Verified 11/06/22 09:38 burning Active Medications: Current Medications Albuterol Sulfate (Albuterol Sulfate (0.083%) 2.5 Mg/3 Ml Vial.Neb) 2.5 mg INHALE ONCE PRN PRN Reason: Shortness of Breath/Wheezing Lactated Ringer's (Lr) 1,000 mls @ 100 mls/hr IVCONT .Q10H JORGE LUIS Last Admin: 11/09/22 09:56 Dose: 100 mls/hr Home Medications Medication Instructions Recorded Confirmed Last Taken Type albuterol sulfate 90 mcg/actuation 1 inh inhalation QID PRN Shortness 04/15/20 11/09/22 Unknown History aerosol inhaler (ProAir HFA) Of Breath fexofenadine 180 mg tablet 180 mg PO BID 04/15/20 11/09/22 Unknown History (Francoise Allergy) fluticasone propionate 50 1 spray intranasal DAILY 04/15/20 11/09/22 Unknown History mcg/actuation nasal spray,suspension temazepam 30 mg capsule 30 mg PO BEDTIME PRN 04/15/20 04/18/20 Unknown History tizanidine 4 mg capsule 4 mg PO BEDTIME 04/15/20 04/18/20 Unknown History biotin 10,000 mcg capsule 10,000 mcg PO DAILY 04/18/20 11/09/22 Unknown History bupropion HCl 150 mg tablet,12 hr 150 mg PO DAILY 04/18/20 04/18/20 Unknown History sustained-release (Wellbutrin SR) lidocaine 5 % topical ointment 1 applic topical BEDTIME 04/18/20 04/18/20 Unknown History multivitamin 1 tab PO DAILY 04/18/20 04/18/20 Unknown History pregabalin 300 mg capsule (Lyrica) 300 mg PO DAILY 04/18/20 04/18/20 Unknown History valacyclovir 500 mg tablet 0 mg PO 04/18/20 04/18/20 Unknown History metformin 500 mg tablet 500 mg PO DAILY 09/17/22 Unknown History Exam Exam Date and Time: November 09, 2022 1000 Height,Weight and Vital Signs: Height 5 ft Weight 88.451 kg Last Vital Signs Temp 98.3 F 11/09/22 09:33 Pulse 79 11/09/22 09:33 Resp 18 11/09/22 09:33 BP 133/83 11/09/22 09:33 Pulse Ox 99 11/09/22 09:33 O2 Del Method Room Air 11/09/22 09:33 Airway Mallampati Class: III TM Dist: >3cm Neck ROM: Full Heart: RRR Lungs: CTA Assessment and Plan Final Anesthetic Review ASA Class: II Final Preanesthetic Review: Meds/Allgs Chart Reviewed, Consent Obtained/Reviewed and Anes Risks/Benef Reviewed Patient Risk: Low Procedure Risk: Low Anesthetic Plan Anesthetic Plan: GA Disposition: Standard PACU
[2022-11-09] MEDS: Acetaminophen 1,000 MG/100 ML PIGGYBACK 400 MG IV (12:21)
[2022-11-09] MEDS: oxyCODONE HCl Immed Release 5 MG TABLET PO (12:47)
[2022-11-09] MEDS: ondansetron HCL 4 MG/2 ML VIAL IVPUSH (12:49)
== END 2022-11-09 13:49 | disposition home or self-care (01) ==
PROVIDERS: PCP Internal Medicine; Visit Provider Orthopaedic Surgery
PROC: (CPT 26055; principal; 2022-11-09 10:20)
DX: M65.311 Trigger thumb, right thumb (principal); E11.9 Type 2 diabetes mellitus without complications; I71.00 Dissection of unspecified site of aorta; Z88.8 Allergy status to other drugs, medicaments and biological substances; E06.0 Acute thyroiditis; Z91.040 Latex allergy status; Z98.890 Other specified postprocedural states; F17.200 Nicotine dependence, unspecified, uncomplicated; Z79.84 Long term (current) use of oral hypoglycemic drugs; Z79.899 Other long term (current) drug therapy
CPT/HCPCS: 26055; J0131; J0171; J1100; J2250; J2405; J3010

== ENCOUNTER → 2022-11-24 14:25 | Outpatient (BNVA) | payer OTHER, SELFPAY | PROVIDERS: PCP Internal Medicine; Visit Provider Orthopaedic Surgery | DX: Z48.02 Encounter for removal of sutures (principal); M65.311 Trigger thumb, right thumb | CPT/HCPCS: 99212 ==

== ENCOUNTER → 2023-03-17 09:14 | Outpatient (BNVA) | payer OTHER, SELFPAY | PROVIDERS: PCP Internal Medicine; Visit Provider Physician Assistant Surgical ==

== ENCOUNTER → 2023-03-29 08:10 | Outpatient (BNVA) | payer OTHER, SELFPAY | PROVIDERS: PCP Internal Medicine; Visit Provider Surgery ==

== ENCOUNTER 2024-04-12 09:22 | Outpatient (AMB) | payer OTHER, SELFPAY ==
--- NOTE | 2024-04-12 09:27 | A.OFFVIS_ITS ---
Intake Visit Reasons: OV-Med epicondylitis of R elbow last inj 10/14/22 Intake Note: Lalitha is a 48 year old right hand dominant female who presents to the office today for med epicondylitis of right elbow. Pts last injection was 10/14/22. Pt states she has been having pain more frequently and swelling. Pt states she has been doing at home exercises which has been helpful but she states she would like another injection. Allergies bee pollen [BEE STINGS] Allergy (Severe, Verified 04/12/24 09:27) ANAPHYLAXIS aluminum hydroxide [From MAALOX] Allergy (Intermediate, Verified 04/12/24 09:27) Anaphylaxis ciprofloxacin [From CIPRO] Allergy (Intermediate, Verified 04/12/24 09:27) RASH latex [LATEX] Allergy (Intermediate, Verified 04/12/24 09:27) RASH bacitracin [BACITRACIN] Allergy (Unknown, Verified 04/12/24 09:27) HIVES codeine Allergy (Unknown, Verified 04/12/24 09:27) unknown phenytoin [Dilantin] Allergy (Unknown, Verified 04/12/24 09:27) skin burning HPI HPI OV-Med epicondylitis of R elbow last inj 10/14/22: Details: 48-year-old right hand dominant female who returns to the office today for a follow-up of right elbow pain. She currently states she has more frequent pain and swelling in her elbow. She has been working on home exercises with benefits. She had her last injection on 10/14/22 which provided her relief until recently. She would like to repeat the injection. [facility] Medical History (Updated 03/29/23 @ 13:54 by Corey Alexis MD) DJD (degenerative joint disease) Migraines GERD (gastroesophageal reflux disease) Non-insulin dependent type 2 diabetes mellitus Sleep apnea treated with continuous positive airway pressure (CPAP) BMI 36.0-36.9,adult Abnormal TSH Thyroiditis Aortic dissection Acute suppurative thyroiditis Surgical History (Updated 03/29/23 @ 13:57 by Corey Alexis MD) History of hysterectomy for benign disease Tubal ligation status History of prior ablation treatment History of back surgery History of removal of cyst History of carpal tunnel release Family History Father Aortic dissection Throat cancer Mother HTN (hypertension) Brother No problems noted. Brother No problems noted. Sister No problems noted. Sister No problems noted. Son No problems noted. Son No problems noted. Daughter No problems noted. Daughter No problems noted. 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 No erythema or swelling. ROM full without pain. Tenderness over the lateral epicondyle and pain with resisted wrist extension. NVI. Office Procedures Joint Injection/Aspiration Joint Injection/Aspiration Primary Site: right tennis elbow Prep: site was prepped using aseptic technique, ethochloride spray was applied and injection warnings given Injected: 40 mg of, with 1 mL of, 1% plain lidocaine and decadron Procedure: The patient tolerated the procedure well and there was some relief with the local anesthesia Coding 31610 - Epicondyle Procedure code (CPT) selection complete Assessment & Plan Assessment & Plan (1) Lateral epicondylitis, right elbow: Code(s): M77.11 - Lateral epicondylitis, right elbow Category: Medical Plan We discussed options today, which include steroid injection. The patient did consent to move forward with the right elbow injection, which was tolerated well. I recommended rest, ice, and elevation and OTC anti-inflammatories as needed for discomfort. If symptoms persist or worsen over the next 6-8 weeks, patient will contact the office, otherwise follow-up as needed. ? Patient Instructions: Scribed for Roberth Ibarra PA-C, by Flo Marley ophthalmic medical assistant, on 04/12/2024 at 9:15 AM EST.? I, Roberth Ibarra PA-C, have personally reviewed and agree with the information entered by the scribe. Coding Level of Care Code Est Pt Level 3 (74657) Complex EM visit Add On G2211 Diagnoses Lateral epicondylitis, right elbow M77.11 CPT Codes Coding - Joint 2: 50556 - Epicondyle ([id number])
== END 2024-04-12 09:49 | disposition home or self-care (01) ==
PROVIDERS: PCP Internal Medicine; Visit Provider Physician Assistant
DX: M77.11 Lateral epicondylitis, right elbow (principal)
CPT/HCPCS: 20550; 99213

== ENCOUNTER → 2024-04-12 09:22 | Outpatient (BNVA) | payer OTHER, SELFPAY | PROVIDERS: PCP Internal Medicine; Visit Provider Physician Assistant | DX: M77.11 Lateral epicondylitis, right elbow (principal) | CPT/HCPCS: 20550; 99212; J1100 ==

== ENCOUNTER 2025-03-09 16:20 | Emergency (ER) | payer OTHER, SELFPAY ==
--- NOTE | 2025-03-09 | ECG_ITS ---
Test Reason : CHEST PAIN Blood Pressure : */* mmHG Vent. Rate : 59 BPM Atrial Rate : 59 BPM P-R Int : 164 ms QRS Dur : 94 ms QT Int : 450 ms P-R-T Axes : 13 27 45 degrees QTcB Int : 445 ms Sinus bradycardia Otherwise normal ECG When compared with ECG of 16-Oct-2021 23:07, No significant change was found Referred By: Generic ED Physician Electronically Signed By: CASE CANTRELL MD
[2025-03-09 16:38] VITALS: BP 127/47; PULSE 65; RESP 16; TEMP 36.6; O2SAT 97; O2SAT 99; BMI 34.2
[2025-03-09 17:09] LABS: MANUAL DIFF FLAG NO
--- OUTSIDE RECORDS SUMMARY | 2025-03-09 17:10 | XMS_ITS | Clinical Summary ---
Author Organization [address] Address [address] [place] [id number] Care Team Providers Care Charter Coordinator Name Role Phone Yamil Ochoa MD Primary Care Provider [phone] Medications No known medications Active Problems Problem Noted Date Diagnosed Date Asthma 03/08/2017 Social History Tobacco Use Types Packs/Day Years Used Date Smoking Tobacco: Never Assessed Comments Unknown Sex and Gender Information Value Date Recorded Sex Assigned at Not on file Legal Sex Female 9:18 AM EDT Gender Identity Not on file Sexual Orientation Not on file Plan of Treatment Health Maintenance Due Date Last Done Comments HIV screening 10/28/1988 Hepatitis C screening 10/28/1993 Cervical cancer screening 10/28/1996 Breast cancer screening 2015 Lipid disorder screening 2015 Tetanus adult (Td q 10,TDAP once) 12/31/2019 010 Colon cancer screening, Colonoscopy 10/28/2020 Diabetes screening 10/28/2020 Covid-19 vaccine series (2023- season) 2024 Influenza vaccine 03/19/2025 RSV Immunization (1 - 1-dose 75+ series) 10/28/2050 Meningococcal B Vaccine Aged Out No l onger eligible based on patient's age to complete this topic Meningococcal Vaccine Aged Out No kina janes eligible based on patient's age to complete this topic Pneumococcal Vaccine (2 - 49 years) Aged Out No longer eligible b ased on patient's age to complete this topic Insurance MEDICARE [id number] MEDICAID MEDICARE [id number] MEDICAID MEDICARE [id number] MEDICAID MEDICARE [id number] MEDICAID Care Teams Charter Coordinator Relationship Specialty Start Date End Date Yamil Ochoa MD PCP - General Internal Medicine 02/26/17
--- OUTSIDE RECORDS SUMMARY | 2025-03-09 17:10 | XMS_ITS | Continuity of Care Document ---
Author Name [facility], Medical Address [address] [place] [id number] Organization Unknown Address [address] [place] [address] Medications No known medications Problems No known problems
--- OUTSIDE RECORDS SUMMARY | 2025-03-09 17:10 | XMS_ITS | Clinical Summary ---
Author Organization [facility] Address [address] [place] [id number] Phone Care Team Providers Care Digital Content Producer Name Role Phone Colin Summers MD Primary Care Provider [phone] Allergies Active Allergy Reactions Criticality Noted Date Comments Alum-Mag Hydroxide-Simeth Anaphylaxis High 2 Bacitracin Hives 11/18/2009 Other reaction(s): Hives/Urticaria Ointment Ciprofloxacin Rash Low 09/17/2021 Medications albuterol 90 mcg/actuation inhaler Inhale 2 puffs into the lungs. 1 Active tiZANidine (ZANAFLEX) 2 MG tablet 4 mg. 2 Active budesonide (RHINOCORT ALLERGY) 32 mcg/actuation nasal spray by Nasal route. 1 Active buPROPion (WELLBUTRIN XL) 150 MG ER 24 hr tablet Take 450 mg by mouth daily. 2 Active EPINEPHrine (SYMJEPI) 0.3 mg/0.3 mL syringe INJECT CONTENTS OF 1 PEN INTO THE MUSCLE ONCE NEEDED FOR BEE STING 1 Active fexofenadine (KORY) 180 MG tablet Take 180 mg by mouth 2 (two) times a day. 2 Active fluticasone propionate (FLOVENT HFA) 220 mcg/actuation inhaler Inhale into the lungs. 2 Active lidocaine (LIDODERM) 5 % Apply topically. 2 Active LINZESS 290 mcg Cap capsule Take 290 mcg by mouth daily. 2 Active montelukast (SINGULAIR) 10 mg tablet TAKE 1 TABLET BY MOUTH EVERYDAY AT BEDTIME 1 Active naproxen (NAPROSYN) 250 MG tablet Take 250 mg by mouth. 1 Active nystatin cream APPLY TOPICALLY 2 TIMES A DAY FOR 7 DAYS, APPLY THIN LAYER UNDER BREAST FOLDS 2 Active ondansetron (ZOFRAN) 4 MG tablet TAKE 1 TABLET BY MOUTH EVERY 8 HOURS NEEDED FOR NAUSEA AND VOMITING 2 Active pregabalin (LYRICA) 300 MG capsule Take 300 mg by mouth 2 (two) times a day. 2 Active QUEtiapine (SEROQUEL) 25 MG tablet Take 25 mg by mouth nightly at bedtime. 2 Active temazepam (RESTORIL) 30 mg capsule TAKE 1 CAPSULE BY MOUTH EVERY NIGHT 2 Active butalbital-acet aminophen-caffe ine-codeine (FIORICET WITH CODEINE) 94-295-52-30 mg Cap Take by mouth every 4 (four) hours. Active Social History Tobacco Use Types Packs/Day Years Used Date Smoking Tobacco: Never Smokeless Tobacco: Never Education Answer Date Recorded Are you interested in more education? Not on mamadou e 11/13/2022 Are you concerned about learning? Not on file 11/13/2022 No 11/13/2022 No 11/13/2022 Digital Access Answer Date Recorded No 12/14/2022 No 12/14/2022 No 12/14/2022 Reliable internet access at home? Not on file 12/14/2022 Device with a working camera? Not on file Comments Unknown Sex and Gender Information Value Date Recorded Sex Assigned at Female 08/20/2021 10:20 AM EST Legal Sex Female 2:15 PM EDT Gender Identity Female 08/20/2021 10:20 AM EST Sexual Orientation Straight 08/20/2021 10 :20 AM EST Last Filed Vital Signs Vital Sign Reading Time Taken Comments Blood Pressure 136/76 09/17/2021 1:43 PM EST Pulse 91 09/17/2021 1:43 PM EST Temperature 36.8 C (98.2 F) 09/17/2021 1:43 PM EST Respiratory Rate 18 12/03/2016 9:21 AM EDT Oxygen Saturation 98% 09/17/2021 1:43 PM EST Inhaled Oxygen Concentration - - Weight 78.9 kg (174 lb) 09/17/2021 1:43 PM EST Height 152.4 cm (5') 09/17/2021 1:43 PM EST Body Mass Index 33.98 09/17/2021 1:43 PM EST Plan of Treatment Health Maintenance Due Date Last Done Comments LIPID PANEL 1975 DEPRESSION SCREENING 1987 HEPATITIS C SCREENING 10/28/1993 HIV ONE-TIME SCREENING (18-6 5 YEARS) 10/28/1993 PAP SMEAR 10/28/1996 MAMMOGRAM 2015 COLOGUARD 10/28/2020 COLONOSCOPY 10/28/2020 COLORECTAL CANCER SCREENING 10/28/2020 FIT TEST 10/28/2020 FOBT 10/28/2020 SIGMOIDOSCOPY 10/28/2020 VIRTUAL COLONOSCOPY 10/28/2020 COVID-19 VACCINE (3 - 2023-2 5 season) 2024 12/04/2020, 11/13/2020 Adult Td,Tdap Booster 04/09/2030 04/09/2020 , 01/15/2019, 12/30/2009 HEPATITIS A VACCINES Aged Out 12/30/2009 No long er eligible based on patient's age to complete this topic PNEUMOCOCCAL VACCINES (0-49 years) Aged Out 12/22/2017, 07/07/2016 No longer eligible based on patient's age to complete this topic SMOKING STATUS SCREENING (On ce After 26 Yrs) Completed 09/17/2021 HIB VACCINES Aged Out No longer eligi ble based on patient's age to complete this topic MENINGOCOCCAL VACCINES (ACWY) Aged Out No longer eligible based on patient's age to complete this topic MENINGOCOCCAL VACCINES (B) Aged Out N o longer eligible based on patient's age to complete this topic Medical Devices Not on file Insurance [employer] MEDICARE PART A & B [facility] ONE [facility] MEDICARE REPLACEMENT [place] [id number] [facility] MEDICARE PART A & B [facility] ONE CARE MEDICARE REPLACEMENT [facility] MEDICARE PART A & B [facility] ONE CARE MEDICARE REPLACEMENT [place] MEDICARE PART A & B [facility] ONE [facility] MEDICARE REPLACEMENT [place] MEDICARE PART A & B [facility] ONE [facility] MEDICARE REPLACEMENT [facility] MEDICARE PART A & B [facility] ONE CARE MEDICARE [place]PL[place] [place] [address] MEDICARE PART A [facility] ONE CARE MEDICARE REPLACEMENT [place] MEDICARE PART A & B [facility] ONE CARE MEDICARE REPLACEMENT [place] MEDICARE PART A & B [facility] ONE CARE MEDICARE REPLACEMENT Care Teams Digital Content Producer Relationship Specialty Start Date End Date Colin Summers MD [facility] [place] [address] PCP - General Internal Medicine 08/20/21 Additional Source Comments The information contained in this document represents components of the legal health record. It is not the complete legal health record.[facility]
--- OUTSIDE RECORDS SUMMARY | 2025-03-09 17:11 | XMS_ITS | Patient Health Record ---
Author Organization [facility] [address] [address] Address [address] [place] [address] Care Team Providers Care Lens Block Gauger Name Role Phone ANDREW CHRISTOPHER Unavailable [phone] Allergies Allergen (clinical drug ingredient) Drug/Non Drug Allergy documented on EMR Reaction Allergy Type Onset Date Status Maalox anaphylaxis Drug Allergy Activ e Reason For Referral No Information Medications Medication SIG (Take, Route, Frequency, Duration) Notes Start Date End Date Status Ibuprofen 600 MG 1 tablet with food o r milk as needed Orally as needed Active Fexofenadine HCl 180 MG 1 tablet Swallow whole with water; do not take with fruit juices. Orally Twice a day Active LaMICtal 25 MG 1 tablet Orally Active Wegovy 0.25mg 0.25mg once subcu weekly; Duration: 30 days Not-Taking tiZANidine HCl 4 MG 1 tablet as needed Orally every 6 hours as needed Active Wegovy 0.25mg 0.25mg 0.25mg intro weekly ; Duration: 30 days 08/04/2022 Not-Taking SEROquel 50 MG 1 tablet at bedtime Orally Once a day Not-Taking Temazepam 30 MG 1 capsule at bedtime as needed Orally Once a day Active Lyrica 300 MG 1 capsule Orally Twi ce a day Active Flovent HFA 220 MCG/ACT 2 puffs Inhalati on as needed Active ProAir HFA 108 (90 Base) MCG/ACT 1 puff as needed Inhalation as needed Active metFORMIN HCl 500 MG TAKE 1 TABLET BY [facility] EVERY DAY WITH MEALS FOR 30 DAYS; Duration: 90 Active Wellbutrin XL 300 MG 2 tablets. 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 OPERATOR Problems Problem Type SNOMED Code ICD Code Onset Dates Problem Status W/U Status Risk Notes Problem Chronic pain (60367366) Other chronic pain (G89.29) Active confirmed Problem Anxiety (81095207) Anxiety (F41.9) Active confirmed Problem Insomnia (815693852) Insomnia, unspecified type (G47.00) Active confirmed Problem Vitamin D deficiency (88533428) Vitamin D deficiency (E55.9) Active confirmed Problem Obesity (795337575) Class 2 obesity due to excess calories without serious comorbidity in adult, unspecified BMI (E66.09) Active confirmed Problem Obese class II (019924056827882 ) BMI 36.0-36.9,adult (Z68.36) Active confirmed Problem Exacerbation of moderate persistent asthma (disorder) (042674512) Moderate persistent asthma with acute exacerbation (J45.41) Active confirmed Problem Bipolar disorder (07925351) Bipolar 1 disorder, depressed (F31.9) Active confirmed Problem Irritable bowel syndrome (53519542) Irritable bowel syndrome with both constipation and diarrhea (K58.2) Active confirmed Plan Of Treatment Pending Test Test Name Order Date LIPID PANEL, STANDARD 04/16/2022 COMPREHENSIVE METABOLIC PANEL 04/16/2022 CBC (INCLUDES DIFF/PLT) 04/16/2022 HEMOGLOBIN A1c 04/16/2022 VITAMIN B12 04/16/2022 VITAMIN D,25-OH,TOTAL,IA 04/16/2022 Insurance Providers Payer Name Payer Address Payer Phone Subscriber Number Group Number Insured Name Patient Relationship to Insured Coverage Start Date Coverage End Date [employer] or Options [address] [place] [address] [id number] Lalitha Beyer Self - patient is the insured Medications Administered Medication Instructions Date of Administration Dosage Notes MICC B12 INJECTION 05/18/2022 1 mL Lot # [id number] Medical (General) History Medical History History ICD Code Asthma J45.909 Bipolar 1 disorder F31.9 Hyperlipidemia, unspecified E78.5 Depression with anxiety F41.8 Migraine, unspecified, not intractable, with status migrainosus G43.901 Seasonal allergies J30.2 Obesity (BMI 35.0-39.9 without comorbidi ty) E66.9 Chronic pain syndrome G89.4 Obstructive sleep apnea G47.33 Insomnia, unspecified G47.00 Surgical History Surgery Date(Month/Year) Hysterectomy bowel repair Hospitalization History Reason Date(Month/Year) L5-S1 micro dissection back pain sciatic a
[2025-03-09 17:15] LABS: Hematocrit 35.5 % (37.0-47.0); Hemoglobin 12.2 g/dl (12.0-16.0); Imm Gran Abs Auto 0.02 X10*3/uL (0.00-0.03); Imm Gran Pct Auto 0.3 % (0.0-0.4); Lymphocytes Absolute Auto 3.2 X10*3/uL (1.2-4.9); Mean Corpuscular HGB Conc 34.4 g/dl (31.0-35.0); Mean Corpuscular Hemoglobin 32.2 pg (27.0-33.0); Mean Corpuscular Volume 93.7 fL (80.0-98.0); NRBC Abs Auto 0.000 X10*3/uL (0.0-0.012); NRBC Pct Auto 0.0 /100WBC (0.0-0.2); Platelet Count 356 X10*3/uL (160-400); Red Blood Count 3.79 X10*6/uL (4.20-5.50); White Blood Count 6.9 X10*3/uL (4.8-10.8)
[2025-03-09 17:23] LABS: Anion Gap 12 (12-20); Blood Urea Nitrogen 8 mg/dL (9-16); Calcium 8.8 mg/dL (8.4-10.2); Carbon Dioxide 25 mmol/L (22-29); Chloride 113 mmol/L (96-108); Creatinine Clr Calc Pharmacy 86.9; Estimated Glomerular Filt Rate > 60; Magnesium 2.2 mg/dL (1.6-2.6); Potassium 4.0 mmol/L (3.3-5.1); Sodium 146 mmol/L (135-145)
[2025-03-09 17:32] LABS: Troponin-I High Sensitivity < 2.7 ng/L (<3.5-17.0)
[2025-03-09 18:11] VITALS: BP 121/56; PULSE 66; RESP 16; TEMP 36.8; O2SAT 100
--- NOTE | 2025-03-09 18:47 | ED.GENADULT ---
HPI - General Adult General Chief complaint: Headache Stated complaint: CP,migraine,dizziness,nausea,sob since the 8th Time Seen by Provider: 03/09/25 18:46 Source: patient Mode of arrival: ambulatory Limitations: no limitations History of Present Illness ED Provider: Dr. Palm HPI narrative: 49-year-old female presented hospital today for evaluation of chest pain and migraine. She described as migraine as a posterior occipital headache that is making her brain bursts. She is having some photophobia associated with this. She had a recent admission at [facility] on 02/23/25. Patient had a CTA head and neck performed which was ultimately negative. Patient also had a episode AFib when she was given Haldol. Patient was then admitted to the hospital for 4 days. However her symptoms then subsided. It returned on 03/07/25. Patient was waiting at [facility] however she was then discharged from [facility]. She then went to [facility] afterward. Patient stated that she was waiting for a long time [facility] and left from there due to the long waiting room. Patient states she felt that she was not being heard. No one seems to care about her condition. She wants to urgent Care today. States she had a EKG performed which was sent to him which was concerning for ST changes therefore raiser helper was called. And raiser helper was concerned about ST changes on the EKG as well. Therefore patient is concerned that her chest pain is related to her heart. Patient state that she is a [employer]. She was given aspirin in route here. He was given a dose of Zofran as well. Patient describes his chest pain is a sharp stinging chest pain that is intermittent in nature and waxes and wane. Denies any pleuritic aspect to this chest pain. Related Data Home Medications ?Medication ?Instructions ?Recorded ?Confirmed albuterol sulfate 90 mcg/actuation 1 inh inhalation QID PRN Shortness 04/15/20 03/29/23 aerosol inhaler (ProAir HFA) Of Breath fexofenadine 180 mg tablet 180 mg PO BID 04/15/20 03/29/23 (Francoise Allergy) fluticasone propionate 50 1 spray intranasal DAILY 04/15/20 03/29/23 mcg/actuation nasal spray,suspension temazepam 30 mg capsule 30 mg PO BEDTIME PRN Muscle Spasm 04/15/20 03/29/23 tizanidine 4 mg capsule 4 mg PO BEDTIME 04/15/20 03/29/23 biotin 10,000 mcg capsule 10,000 mcg PO DAILY 04/18/20 03/29/23 bupropion HCl 150 mg tablet,12 hr 300 mg PO DAILY 04/18/20 03/29/23 sustained-release (Wellbutrin SR) lidocaine 5 % topical ointment 1 applic topical BEDTIME 04/18/20 03/29/23 multivitamin 1 tab PO DAILY 04/18/20 03/29/23 pregabalin 300 mg capsule (Lyrica) 300 mg PO BID 04/18/20 03/29/23 valacyclovir 500 mg tablet 500 mg PO DAILY 04/18/20 03/29/23 hydroxyzine pamoate 50 mg capsule 50 mg PO BEDTIME 11/09/22 03/29/23 linaclotide 290 mcg capsule 290 mcg PO DAILY 03/29/23 03/29/23 (Linzess) quetiapine 50 mg tablet (Seroquel) 50 mg PO BEDTIME 03/29/23 03/29/23 estradiol 0.5 mg tablet mg PO 04/12/24 Previous Rx's ?Medication ?Instructions ?Recorded ondansetron 4 mg disintegrating 4 mg PO ONCE PRN nausea and 10/17/21 tablet vomiting #10 tabs oxycodone 5 mg tablet 5 mg PO Q6H PRN pain #5 tabs 11/09/22 Allergies Allergy/AdvReac Type Severity Reaction Status Date / Time bee pollen (BEE STINGS) Allergy Severe ANAPHYLAXIS Verified 03/09/25 16:44 aluminum hydroxide (From Allergy Intermediate Anaphylaxis Verified 03/09/25 16:44 MAALOX) ciprofloxacin (From CIPRO) Allergy Intermediate RASH Verified 03/09/25 16:44 latex (LATEX) Allergy Intermediate RASH Verified 03/09/25 16:44 bacitracin (BACITRACIN) Allergy Unknown HIVES Verified 03/09/25 16:44 codeine Allergy Unknown unknown Verified 03/09/25 16:44 phenytoin (Dilantin) Allergy Unknown skin Verified 03/09/25 16:44 burning Review of Systems Review of Systems: Pertinent review of systems as mentioned in HPI. All other system otherwise negative. [facility] Past Medical History [facility] Narrative: Medical history as mentioned in [facility] Medical History (Updated 03/09/25 @ 20:40 by Pia Palm DO) DJD (degenerative joint disease) Migraines GERD (gastroesophageal reflux disease) Non-insulin dependent type 2 diabetes mellitus Sleep apnea treated with continuous positive airway pressure (CPAP) BMI 36.0-36.9,adult Abnormal TSH Thyroiditis Aortic dissection Acute suppurative thyroiditis Surgical History (Updated 03/29/23 @ 13:57 by Corey Alexis MD) History of hysterectomy for benign disease Tubal ligation status History of prior ablation treatment History of back surgery History of removal of cyst History of carpal tunnel release Family History Family History Father Aortic dissection Throat cancer Mother HTN (hypertension) Brother No problems noted. Brother No problems noted. Sister No problems noted. Sister No problems noted. Son No problems noted. Son No problems noted. Daughter No problems noted. Daughter No problems noted. 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 Physical Exam ED Exam Exam: General: Pleasant, no distress, interacting appropriately Head: Normacephalic, atraumatic ENT: oral mucosa moist, neck supple, no tracheal deviation Cardiovascular: regular rate, regular rhythm, no murmurs, rubbing, gallops Respiratory: CTAB, no wheeze, rales, rhonchi Extremities: No limb pain or swelling, no calf tenderness Neurological: Awake and alert, no facial droop noted, no focal neurological deficit Skin: Warm and dry Psychiatric: Appropriate mood and thoughts Vital Signs: Vital Signs - 24 hr 03/09/25 16:38 03/09/25 18:11 03/09/25 19:27 Temperature 97.8 F 98.2 F Pulse Rate 65 66 74 Respiratory Rate 16 16 16 Blood Pressure 127/47 L 121/56 L 125/80 Pulse Oximetry 99 100 100 Oxygen Delivery Method Room Air Room Air Room Air 03/09/25 20:42 Temperature 97.8 F Pulse Rate 74 Respiratory Rate 16 Blood Pressure 125/80 Pulse Oximetry 100 Oxygen Delivery Method Room Air BMI result Body Mass Index 34.2 Medications Administered Generic Name Dose Route Start Last Admin Trade Name Freq PRN Reason Stop Dose Admin Magnesium Sulfate 2 gm in 50 mls @ 25 mls/hr 03/09/25 19:17 03/09/25 20:43 Magnesium Sulfate/H2o IV 03/09/25 21:16 Infused ONCE ONE Infusion Discontinued Medications Generic Name Dose Route Start Last Admin Trade Name Fauzia PRN Reason Stop Dose Admin Diazepam 5 mg 03/09/25 19:17 03/09/25 19:30 Diazepam 5 Mg Tablet PO 03/09/25 19:18 5 mg ONCE ONE Administration Sodium Chloride 1,000 mls @ 999 mls/hr 03/09/25 19:30 03/09/25 20:43 Ns IV 03/09/25 20:30 Infused .Q1H1M JORGE LUIS Infusion Ketorolac Tromethamine 15 mg 03/09/25 19:17 03/09/25 19:28 Ketorolac Tromethamine 15 Mg/Ml Vial IVPUSH 03/09/25 19:18 15 mg ONCE ONE Administration Metoclopramide HCl 5 mg 03/09/25 19:17 03/09/25 19:29 Metoclopramide Hcl 10 Mg/2 Ml Vial IVPUSH 03/09/25 19:18 5 mg ONCE ONE Administration Medical Decision Making Medical Decision Making MDM Narrative: 49-year-old female presented hospital today for evaluation of chest pain and headache. Does been going on since earlier this month. We will plan to obtain ACS workup including EKG CBC chemistry troponin. Chest x-ray will be obtained. The patient is amenable to trialing migraine cocktail at this time. I suspect this is likely tension headache. We will plan to give patient IV Toradol, IV Reglan IV magnesium IV fluid. We will plan to give patient p.o. Valium for muscle relaxer for the patient. Patient is concerned about raiser helper diagnoses ST elevation on EKG. I review her EKG. I am not concerned about ST elevation. Her EKG does not meet STEMI criteria. Her story is not concerning for ischemia. Her chest pain is atypical in nature. We will monitor patient on employment services director here. Low suspicion of acute intracranial pathology given patient's recent extensive workup at [facility]. On reassessment patient stated her headache has improved with medication. Second troponin is negative here. Patient states that she does feel comfortable going home at this time. Patient will be discharged. Return precautions provided. Encouraged her to follow up with her primary care doctor for further workup. Patient stated that she has been going through extra stress recently. She has been trying everything outpatient to help with her symptoms. Differential Diagnosis Differential Diagnoses: The differential diagnosis associated with the presentation includes ACS, tension headache, migraine headache, cluster headache Lab Data MDM Lab Attestation statement: I reviewed the patient's lab results. 03/09/25 17:02 03/09/25 17:02 Labs: Lab Results 03/09/25 03/09/25 Range/Units 17:02 19:36 WBC 6.9 (4.8-10.8) X10*3/uL RBC 3.79 L (4.20-5.50) X10*6/uL Hgb 12.2 (12.0-16.0) g/dl Hct 35.5 L (37.0-47.0) % MCV 93.7 (80.0-98.0) fL MCH 32.2 (27.0-33.0) pg MCHC 34.4 (31.0-35.0) g/dl RDW 12.3 (11.0-16.0) % Plt Count 356 (160-400) X10*3/uL MPV 8.8 L (9.4-12.3) fL Immature Gran % (Auto) 0.3 (0.0-0.4) % Neut % (Auto) 44.7 L (45-73) % Lymph % (Auto) 46.1 H (20-40) % Miner % (Auto) 5.7 (2-11) % Eos % (Auto) 2.8 (0-4) % Baso % (Auto) 0.4 (0-2) % Lymph # (Auto) 3.2 (1.2-4.9) X10*3/uL Miner # (Auto) 0.4 (0.1-1.2) X10*3/uL Eos # (Auto) 0.2 (0.0-0.4) X10*3/uL Baso # (Auto) 0.0 (0.0-0.2) X10*3/uL Abs Immat Gran (auto) 0.02 (0.00-0.03) X10*3/uL Absolute Neuts (auto) 3.1 (2.0-8.3) x10*3/uL Absolute Nucleated RBC 0.000 (0.0-0.012) X10*3/uL Nucleated RBC % (auto) 0.0 (0.0-0.2) /100WBC Sodium 146 H (135-145) mmol/L Potassium 4.0 (3.3-5.1) mmol/L Chloride 113 H (96-108) mmol/L Carbon Dioxide 25 (22-29) mmol/L Anion Gap 12 (12-20) BUN 8 L (9-16) mg/dL Creatinine 0.73 (0.5-1.4) mg/dL Estim Creat Clear Calc 86.9 Estimated GFR > 60 Random Glucose 97 (60-115) mg/dL Calcium 8.8 (8.4-10.2) mg/dL Magnesium 2.2 (1.6-2.6) mg/dL Troponin I High Sens < 2.7 < 2.7 (<3.5-17.0) ng/L Independent Interpretation I performed an independent interpretation of an: EKG Discharge Plan Discharge Clinical Impression: Atypical chest pain Migraine Qualifiers: Migraine type: unspecified Status migrainosus presence: without status migrainosus Intractability: not intractable Qualified Code(s): G43.909 - Migraine, unspecified, not intractable, without status migrainosus Patient Disposition: Home, Self-Care Additional Instructions: Follow up with your primary care doctor for your symptoms. Inquire about a stress test. Your EKG does not show STEMI. Troponin negative twice here. You are not having a heart attack Prescriptions: No Action ondansetron 4 mg tablet,disintegrating 4 mg PO ONCE PRN (Reason: nausea and vomiting) Qty: 10 0RF oxycodone 5 mg tablet 5 mg PO Q6H PRN (Reason: pain) Qty: 5 0RF Rx Instructions: Partial Fill upon patient request. hydroxyzine pamoate 50 mg capsule 50 mg PO BEDTIME multivitamin Tablet 1 tab PO DAILY bupropion HCl [Wellbutrin SR] 150 mg tablet sustained-release 12 hr 300 mg PO DAILY biotin 10,000 mcg capsule 10,000 mcg PO DAILY lidocaine 5 % ointment 1 applic topical BEDTIME pregabalin [Lyrica] 300 mg capsule 300 mg PO BID valacyclovir 500 mg tablet 500 mg PO DAILY tizanidine 4 mg capsule 4 mg PO BEDTIME albuterol sulfate [ProAir HFA] 90 mcg/actuation HFA aerosol inhaler 1 inh inhalation QID PRN (Reason: Shortness Of Breath) fluticasone propionate 50 mcg/actuation spray,suspension 1 spray intranasal DAILY Rx Instructions: administer into each nostril temazepam 30 mg capsule 30 mg PO BEDTIME PRN (Reason: Muscle Spasm) fexofenadine [Francoise Allergy] 180 mg tablet 180 mg PO BID quetiapine [Seroquel] 50 mg tablet 50 mg PO BEDTIME Linzess 290 mcg capsule 290 mcg PO DAILY estradiol 0.5 mg tablet PO Interventions: ED Discharge Assessment Last Done: 03/09/25 20:42 Print Language: Mongolian
[2025-03-09 19:27] VITALS: BP 125/80; PULSE 74; RESP 16; O2SAT 100
[2025-03-09] MEDS: Magnesium Sulfate/H2O 2 GM/50 ML PIGGYBACK IV (19:28)
[2025-03-09 20:11] LABS: Troponin-I High Sensitivity < 2.7 ng/L (<3.5-17.0)
[2025-03-09 20:42] VITALS: BP 125/80; PULSE 74; RESP 16; TEMP 36.6; O2SAT 100
== END 2025-03-09 20:57 | disposition home or self-care (01) ==
PROVIDERS: Emergency Provider Student in an Organized Health Care Education/Training Program; PCP Internal Medicine
DX: R07.9 Chest pain, unspecified (principal); G43.909 Migraine, unspecified, not intractable, without status migrainosus; R00.1 Bradycardia, unspecified; Z87.891 Personal history of nicotine dependence
CPT/HCPCS: 36415; 80048; 83735; 84484; 85025; 93005; 96365; 96375; 99284; J1885; J2765; J3475

== ENCOUNTER → 2025-03-09 16:34 | Outpatient (BNV) | payer OTHER, SELFPAY | PROVIDERS: Emergency Provider Student in an Organized Health Care Education/Training Program; PCP Internal Medicine; Visit Provider Internal Medicine Cardiovascular Disease | DX: R00.1 Bradycardia, unspecified (principal) | CPT/HCPCS: 93010 ==

== ENCOUNTER 2025-06-28 15:10 | Outpatient (AMB) | payer OTHER, SELFPAY ==
--- OUTSIDE RECORDS SUMMARY | 2025-06-26 13:40 | XMS_ITS | Encounter Summary ---
Author Organization [facility] Address [address] [place] [address] Care Team Providers Care Elderly Caregiver Name Role Phone Faye Ferrera MD Primary Care Provider + Reason for Visit * Reason Comments Advice Only Graves Disease/Hyper thyroid * Consultation (Routine) - Pending Review Specialty Diagnoses / Procedures Referred By Naseem jimenez Referred To Contact Endocrinology Diagnoses Graves disease Faye Ferrera MD [address] [place] [address] Phone: tel: fax: Referral ID Status Reason Start Date Expiration Date Visits Requested Visits Authorized [id number] Pending Review Specialty Services Required 06/12/2026 1 1 Encounter Details Date Type Department Care Team (Late st Contact Info) Description 06/26/2025 1:40 PM EST Consult Endocrinology - [place] [address] [place] [phone] Caridad Cyr MD [address] [place] [address] Thyrotoxicosis without thyroid storm, unspecified thyrotoxicosis type (Primary Dx) Social History Tobacco Use Types Packs/Day Years Used Date Smoking Tobacco: Former Cigarettes 0.3 Q uit: 07/19/2001 Smokeless Tobacco: Never Alcohol Use Standard Drinks/Week Comments Yes 0 (1 standard drink = 0.6 oz pur e alcohol) Housing Instability Answer Date Recorde d Are you worried that in the next 2 months you may not have stable housing? No 03/01/2025 Food Access & Nutrition Answer Date Rec orded Do you have access to a vari ety of food including fruits and vegetables? Yes 03/01/2025 Access to Healthcare Answer Date Record ed Within the last 3 months, ho w many times did you visit the emergency department for your medical care? 2 03/01/2025 Health Literacy Answer Date Recorded How often do you need to hav e someone help you when you read instructions, pamphlets, or other written material from your doctor or pharmacy? Never 03/01/2025 Caregiver: How often do you need to have someone help you when you read instructions, pamphlets, or other written material from your doctor or pharmacy? Not on file 03/01/2025 Financial Risk Answer Date Recorded How hard is it for you to pa y for the very basics like food, housing, medical care, and air conditioning / heating? Somewhat hard 03/01/2025 Transportation Answer Date Recorded Has the lack of transportati on kept you from meetings, work, or from getting things needed for daily living? No Has the lack of transportati on kept you from medical appointments or from getting medications? No 03/01/2025 Social Isolation Answer Date Recorded How often do you feel lonely or isolated from those around you? Sometimes 03/01/2025 Food Risk Answer Date Recorded Within the past 12 months we worried whether our food would run out before we got money to buy more. Never true 03/01/2025 Within the past 12 months th e food we bought just didn't last and we didn't have money to get more. Never true 03/01/2025 Dependent Care Answer Date Recorded Do you need help finding or paying for care for your loved ones. For example, child day care provider or elderly care for an older adult? No 03/01/2025 Education Answer Date Recorded Do you think completing more education or training, like finishing a GED, going to college, or learning a trade, would be helpful for you? N/A 03/01/2025 Employment and Income Answer Date Recor ded During the last four weeks, have you been actively looking for work? Yes 03/01/2025 Living Situation Answer Date Recorded What is your living situation? Unrecognized valu e 03/01/2025 Interpersonal Safety Answer Date Record ed Physical Abuse Unrecognized value 06/04/2025 Verbal Abuse Unrecognized value 06/04/2025 Comments No Sex and Gender Information Value Date Recorded Sex Assigned at Female 06/04/2025 12:01 PM EST Legal Sex Female 12:36 PM EST Gender Identity Female 06/04/2025 12:01 PM EST Sexual Orientation Not on file documented as of this encounter Last Filed Vital Signs Vital Sign Reading Time Taken Comments Blood Pressure 113/75 06/26/2025 1:45 PM EST Pulse 85 06/26/2025 1:45 PM EST Temperature - - Respiratory Rate - - Oxygen Saturation - - Inhaled Oxygen Concentration - - Weight 73.7 kg (162 lb 6.4 oz) 06/26/2025 1:45 P M EST Height - - Body Mass Index 31.72 06/03/2025 8:57 PM EST documented in this encounter Functional Status * Are you deaf or do you have serious difficulty hearing? Answer Date of Assessment Author No 02/28/2025 4:09 PM Adela Bains RN * Are you blind or do you have serious difficulty seeing, even when wearing glasses? Answer Date of Assessment Author No 02/28/2025 4:09 PM Adela Bains RN * Do you have serious difficulty walking or climbing stairs? Answer Date of Assessment Author No 02/28/2025 4:09 PM Adela Bains RN * Do you have serious difficulty dressing or bathing? Answer Date of Assessment Author No 02/28/2025 4:09 PM Adela Bains RN * Because of a physical, mental, or emotional condition, do you have serious difficulty doing errandsalone such as visiting the doctor? Answer Date of Assessment Author No 02/28/2025 4:09 PM Adela Bains RN documented as of this encounter Mental Status * Because of a physical, mental, or emotional condition, do you have serious difficulty concentrating, remembering, or making decisions? (5 years old or older) Answer Entry Date Author No 02/28/2025 4:09 PM Adela Bains RN documented in this encounter Ordered Prescriptions Prescription Sig Dispense Quantity Refills Last Filled Start Date End Date methIMAzole (TAPAZOLE) 10 mg tablet Take 2 tablets (20 mg total) by mouth 2 (two) times a day. 120 each 2 06/27/2025 documented in this encounter Progress Notes * Caridad Cyr MD - 06/26/2025 1:40 PM EST Please have blood work done for your thyroid. * Caridad Cyr MD - 06/26/2025 1:40 PM ESTAddended by: CARIDAD CYR on: 06/27/2025 01:05 PM Modules accepted: Orders * Caridad Cyr MD - 06/26/2025 1:40 PM EST CHIEF COMPLAINT: Advice Only (Graves Disease/Hyperthyroid) IDENTIFIER: Lalitha Beyer is a 49 y.o. old female. HPI: 49-year-old female with past medical history of migraine headaches, IBS presents to the clinic today for initial evaluation of thyrotoxicosis. Background: Patient was seen Dr. Ghosh around 2009 for symptoms of palpitations, fatigue, elevated temperatures. She was found to be thyrotoxic due to thyroiditis. She reports that she was admitted to the hospital for IV steroids and later discharged. She then saw Dr. Orourke in 2019 4 mildly decreased TSH with normal free T4 level. Repeat testing at that time came back normal. Patient reports that she started getting severe migraines in February 2025. She was in and out of the [facility] and was found to be hypertensive and was noted to be in Afib with RVR (on 02/23). However, TFTs were not obtained at the time. She went back to [facility] in May 2025 for complaints of palpitations. TFTs obtained at that time showed suppressed TSH with elevated free T3 and free T4 levels. Patient was started on methimazole 5 mg 3 times daily and propranolol 80 mg twice daily. During today's visit, patient reports that she feels extremely fatigued. Her palpitations have improved. She has increased appetite despite being on Zepbound. She also has symptoms of dysphagia, dyspnea, hoarseness in her voice and tightness in her throat. Thyroid ultrasound was performed in May 2025 which showed mildly enlarged right thyroid lobe, no nodules. Labs: TSH suppressed Free T42.98 Free T3 775 Total T3 206.5 Thyroid peroxidase antibody undetectable TSI undetectable Compressive symptoms: yes Weight loss: lost 20 lbs, on zepbound Heat intolerance: yes , but she also went off of OCPsrecently due to migraines Diarrhea: no Tremor: no Anxiety: yes Insomnia: yes , chronic Menstrual irregularities: had hysterectomy 3 years ago Palpitations: yes Biotin use: no Amiodarone use: no [place] use: no Denies upper respiratory infections or GI illness prior to onset of symptoms. Had a CT angio head/neck on 02/24/25 for evaluation of migraines. Patient is currently taking 5mg three times a day. Patient is also on propranolol 80mg BID. TSH: Lab Results Component Value Date TSH <0.05 (L) 06/03/2025 Ultrasound: Results for orders placed during the hospital encounter of 06/07/25 US Head Neck Soft Tissue Narrative HISTORY: The patient is a 49-year-old female with thyrotoxicosis. FINDINGS: Real-time ultrasonography of the thyroid gland is performed. The right lobe is mildly enlarged, measuring 5.2 x 1.9 x 1.9 cm, while the left lobe is normal in size, measuring 3.6 x 1.5 x 1.5 cm. The isthmus measures 3.6 mm in thickness. No nodule or other focal abnormality is seen. Impression Mild enlargement of the right lobe of the thyroid gland. Otherwise, normal examination. SH: does not smoke, socially drinks alcohol, no recreational drug use. FH: thyroid cancer in mother ROS: GENERAL: Negative for malaise, significant weight loss and fever HEENT: No changes in hearing or vision. No nosebleeds or other nasal problems RESPIRATORY: No cough, wheezing or shortness of breath CARDIOVASCULAR: Negative for chest pain, leg swelling and palpitations GI: Negative for abdominal discomfort, changes in bowel habits, blood in stool or black stools : Negative for dysuria, frequency, and incontinence SKIN: No lesions, rash, or itching ENDOCRINE: See HPI NEURO: No persistent headache, fainting, seizures, strokes, TIAs, weakness, numbness or tingling PAST MEDICAL HISTORY: Patient Active Problem List Diagnosis Date Noted Thyrotoxicosis 06/03/2025 Headache 03/01/2025 SOCIAL HISTORY: Social History Tobacco Use Smoking status: Former Current packs/day: 0.00 Average packs/day: 0.3 packs/day Types: Cigarettes Quit date: 07/19/2001 Years since quittin.9 Smokeless tobacco: Never Substance Use Topics Alcohol use: Yes FAMILY HISTORY: Family Status Relation Name Status Mother (Not Specified) Father Sister (Not Specified) MGM (Not Specified) MGF (Not Specified) Uncle (Not Specified) Mother's abida (Not Specified) Other mat cousin Alive Neg Hx (Not Specified) No partnership data on file Family History[1] ACTIVE MEDICATIONS: Medications Taking[2] ALLERGIES: Magnesium aluminum silicate, Sumatriptan succinate, Bacitracin, Bee pollen, Phenytoin, Ciprofloxacin-hydrocortisone, Codeine, Iodinated contrast media, Ipratropium-albuterol, Latex, and Other PHYSICAL EXAM: Blood pressure 113/75, pulse 85, weight 73.7 kg (162 lb 6.4 oz). Body mass index is 31.72 kg/m??. GENERAL: Alert and oriented, in no acute distress. Well-nourished and well-hydrated. HEAD: Normocephalic and atraumatic. EYES: Proptosis absent NECK/THYROID: normal to inspection and palpation LUNGS: Lungs clear to auscultation bilaterally. No wheezes, rales, or rhonchi. CARDIOVASCULAR: Regular rate and rhythm. Normal S1 and S2 sounds. No murmurs or gallops. ABDOMEN: Soft, non-tender, and non-distended. Bowel sounds are active and normal. EXTREMITIES: No edema or deformities. Full range of motion in all joints. NEUROLOGICAL: Alert and oriented. Grossly nonfocal SKIN: Skin is warm, dry, and intact. LABS: Lab Results Component Value Date TSH <0.05 (L) 06/03/2025 IMPRESSION: 1. Thyrotoxicosis without thyroid storm, unspecified thyrotoxicosis type 49-year-old female with past medical history of migraine headaches, irritable bowel syndrome presents to the clinic today for initial evaluation of thyrotoxicosis. Patient was evaluated for symptoms of palpitations, fatigue, increased appetite, anxiety, insomnia,and A-fib with RVR. She was found to have suppressed TSH with elevated free T4 and free T3 levels. Patient had an episode of thyroiditis 15 years ago requiring IV steroids. Possible differentials for thyrotoxicosis at this time would include thyroiditis, toxic multinodular goiter, Graves' disease. Her TPO antibodies were negative making thyroiditis less likely. She also had undetectable TSI antibodies, TRAb antibodies were not obtained. Ultrasound thyroid showed no evidence of a nodule. I will repeat her TFTs along with TRAb antibodies and ESR. Patient is already on methimazole 5 mg 3 times daily and a beta-mike. If this is Graves' disease, she would need an increase in dose of methimazole depending on what herTFTs come back as. If labs are more suggestive of thyroiditis, we will possibly need to discontinue methimazole and monitor TFTs. Follow-up in 1 month Orders Placed This Encounter Procedures Thyroid stimulating hormone Standing Status: Future Number of Occurrences: 1 Expiration Date: 06/26/2026 Release to patient: Immediate [1] Thyroxine free Standing Status: Future Number of Occurrences: 1 Expiration Date: 06/26/2026 Release to patient: Immediate [1] Triiodothyronine free Standing Status: Future Number of Occurrences: 1 Expiration Date: 06/26/2026 Release to patient: Immediate [1] Thyroid stimulating immunoglobulin Standing Status: Future Number of Occurrences: 1 Expiration Date: 06/26/2026 Release to patient: Immediate [1] Thyrotropin receptor antibody Standing Status: Future Number of Occurrences: 1 Expiration Date: 06/26/2026 Release to patient: Immediate [1] Sedimentation rate Standing Status: Future Number of Occurrences: 1 Expiration Date: 06/26/2026 Release to patient: Immediate [1] ADDITIONAL ORDERS: AMB REFERRAL TO ENDOCRINOLOGY Addendum to above: Discussed lab results with patient. TSH continues to remain suppressed with free T43.6, free T3 675. ESR came back negative. I will increase the dose of her methimazole to 20 mg twice daily. Plan for repeat TFTs in 4 weeks [1] Family History Problem Relation Name Age of Onset Other (Other: thyroid cancer) Mother HTN Heart attack Father throat cancer, smoker, aortic dissection Arthritis Sister Diabetes Maternal Grandmother Hypertension Maternal Grandmother Arthritis Maternal Grandmother Diabetes Maternal Grandfather Other cancer Uncle Stomach cancer Mother's side cousin Breast cancer Other mat cousin Ovarian cancer Neg Hx Uterine cancer Neg Hx Colon cancer Neg Hx [2] Outpatient Medications Marked as Taking for the 06/26/25 encounter (Consult) with Caridad Cyr MD Medication Sig Dispense Refill albuterol 2.5 mg /3 mL (0.083 %) nebulizer solution Take 3 mL (2.5 mg total) by nebulization every 6 (six) hours if needed for wheezing. albuterol HFA (PROAIR HFA ; PROVENTIL HFA ; VENTOLIN HFA) 90 mcg/actuation inhaler Inhale 2 Puffs into the lungs every 6 hours as needed for Cough or Wheezing. B complex tablet Take 1 tablet by mouth 1 (one) time each day. cetirizine (ZyrTEC) 10 mg tablet Take 1 tablet (10 mg total) by mouth 1 (one) time each day. diphenhydrAMINE (BENADRYL) 25 mg capsule Take by mouth every 6 (six) hours if needed for allergies. EPINEPHrine (EpiPen 2-Girma) 0.3 mg/0.3 mL injection INJECT CONTENTS OF 1 PEN INTO THE MUSCLE ONCE ASNEEDED FOR BEE STING estradioL (Estrace) 0.01 % (0.1 mg/gram) vaginal cream Insert 1 gram vaginally for 2 weeks, then 0.5 gram vaginally for 2 weeks, then 0.5 gram vaginally MWF for maintenance. 42.5 g 1 Eye Itch Relief 0.025 % (0.035 %) ophthalmic solution Administer 1 drop into both eyes 3 (three) times a day if needed (IRRITATION). famotidine (PEPCID) 40 mg tablet Take 1 tablet (40 mg total) by mouth at bedtime. fluticasone propionate (FLONASE) 50 mcg/actuation nasal spray Administer 1 spray into each nostril 2 (two) times a day. hydrOXYzine pamoate (VISTARIL) 50 mg capsule Take 1 capsule (50 mg total) by mouth at bedtime as needed (INSOMNIA). linaCLOtide (Linzess) 290 mcg capsule Take 1 capsule (290 mcg total) by mouth. 2-3 TIMES PER WEEK NEEDED FOR IBS magnesium 250 mg tablet Take 250 mg by mouth 1 (one) time each day. methIMAzole (TAPAZOLE) 5 mg tablet Take 1 tablet (5 mg total) by mouth 3 (three) times a day. 90 each 0 montelukast (SINGULAIR) 10 mg tablet Take 1 tablet (10 mg total) by mouth at bedtime as needed (ASTHMA). mv-min/iron/folic/calcium/vitK (WOMEN'S MULTIVITAMIN ORAL) Take by mouth. Nurtec 75 mg dispersible tablet nystatin (MYCOSTATIN) 100,000 unit/gram powder Apply 1 Application topically 2 (two) times a day ifneeded for rash. propranoloL (INDERAL) 80 mg tablet Take 1 tablet (80 mg total) by mouth 2 (two) times a day. 60 each 0 QUEtiapine (SEROquel) 25 mg tablet Take 2-4 tablets (50-100 mg total) by mouth at bedtime. temazepam (RESTORIL) 30 mg capsule Take 1 capsule (30 mg total) by mouth at bedtime. tiZANidine (ZANAFLEX) 4 mg tablet Take 1 tablet (4 mg total) by mouth every 6 (six) hours if needed. for moderate pain UNABLE TO FIND Med Name: SMITH REVIVE & JOINT SUPPORT(TUMERIC, BLACK PEPPER) UNABLE TO FIND Med Name: HER SECOND SPRING(BLACK COHASH) valACYclovir (VALTREX) 500 mg tablet Take 1 tablet (500 mg total) by mouth 1 (one) time each day. TAKE 1 TABLET BY MOUTH EVERY DAY 90 each 3 Zepbound 10 mg/0.5 mL injection Inject 0.5 mL (10 mg total) under the skin every 7 (seven) days. documented in this encounter Plan of Treatment Upcoming Encounters Date Type Department Care Team (Late st Contact Info) Description 07/04/2025 9:20 AM EST Procedure visit [facility] [address] [address] [address] [place] [phone] Mik Rueda MD [address] [place] [address] 07/16/2025 9:10 AM EST Office Visit [facility] [address] [place] [phone] Ladonna Moura NP [address] [place] [address] [place] [phone] 07/31/2025 10:40 AM EST Office Visit [facility] [address] [place] [phone] Caridad Cyr MD [address] [place] [address] 08/14/2025 11:30 AM EST Office Visit [facility] [address] [facility] [address] [place] [phone] Theresa Dye, [address] [phone] Pending Results Name Type Priority Associated Diagnoses Date /Time Thyrotropin receptor antibody Lab Routine Graves disease 06/26/2025 2:40 PM EST Scheduled Orders Name Type Priority Associated Diagnoses Orde r Schedule Thyrotropin receptor antibody Lab Routine Thyrotoxicosis without thyroid storm, unspecified thyrotoxicosis type 1 Occurrences starting 06/26/2025 until 06/26/2026 Thyroid stimulating hormone Lab Routine Thyrotoxicosis without thyroid storm, unspecified thyrotoxicosis type Expected: 07/18/2025, Expires: 06/27/2026 Thyroxine free Lab Routine Thyrotoxicosis without thyroid storm, unspecified thyrotoxicosis type Expected: 07/18/2025, Expires: 06/27/2026 Triiodothyronine free Lab Routine Thyrotoxicosis without thyroid storm, unspecified thyrotoxicosis type Expected: 07/18/2025, Expires: 06/27/2026 documented as of this encounter Results * Sedimentation rate (06/26/2025 2:40 PM EST) Sed Rate 15 0 - 20 mm/hr LAB HEMETOLOGY METHOD 06/26/2025 4:43 PM EST [facility] Blood Venous blood specimen / Unknown Venipuncture / Unknown 06/26/2025 2:40 PM EST 06/26/2025 2:40 PM EST Caridad Cyr MD LAB BLOOD ORDERABLES Final Result Performing Organization Address [facility]/ZIP Co de Phone Number [facility] [address] [place] [address], [place] [phone] * (ABNORMAL) Triiodothyronine free (06/26/2025 2:40 PM EST) T3, Free 675(H) 230 - 420 pcg/dL 06/26/2025 5:[address] [facility] Blood Venous blood specimen / Unknown Venipuncture / Unknown 06/26/2025 2:40 PM EST 06/26/2025 2:40 PM EST Caridad Cyr MD LAB BLOOD ORDERABLES Final Result Performing Organization Address [facility]/ZIP Co de Phone Number [facility] [address] [place] [address], [place] [phone] * (ABNORMAL) Thyroxine free (06/26/2025 2:40 PM EST) Free T4 3.60(H) 0.70 - 1.80 ng/dL 06/26/2025 5:[address] [facility] Blood Venous blood specimen / Unknown Venipuncture / Unknown 06/26/2025 2:40 PM EST 06/26/2025 2:40 PM EST Caridad Cyr MD LAB BLOOD ORDERABLES Final Result Performing Organization Address City/[facility]/ZIP Co de Phone Number [facility] [address] [place] [address], [place] [phone] * (ABNORMAL) Thyroid stimulating hormone (06/26/2025 2:40 PM EST) TSH <0.01(L) 0.40 - 4.00 mcIU/mL 06/26/2025 5:[address] [facility] Blood Venous blood specimen / Unknown Venipuncture / Unknown 06/26/2025 2:40 PM EST 06/26/2025 2:40 PM EST us Caridad Cyr MD LAB BLOOD ORDERABLES Final Result [facility] [address] [place] [address], documented in this encounter Visit Diagnoses Diagnosis Thyrotoxicosis without thyroid storm, unspecified thyrotoxicosis type- Primary documented in this encounter Discontinued Medications Medication Sig Discontinue Reason Start Date End Da te methIMAzole (TAPAZOLE) 5 mg tablet Take 1 tablet (5 mg total) by mouth 3 (three) times a day. 06/04/2025 06/27/2025 documented as of this encounter Orders Outpatient Referral Count Last Ordered Date Fir st Ordered Date AMB REFERRAL TO ENDOCRINOLOGY 1 06/26/2025 documented in this encounter Care Teams Elderly Caregiver Relationship Specialty Start Date End Date Faye Ferrera MD [facility] [place] [address] PCP - General Internal Medicine 02/24/25 documented as of this encounter
--- OUTSIDE RECORDS SUMMARY | 2025-06-26 14:30 | XMS_ITS | Encounter Summary ---
Author Organization [facility] Address [address] [place] [address] Care Team Providers Care Account Information Clerk Name Role Phone Faye Ferrera MD Primary Care Provider + Encounter Details Date Type Department Care Team (Late st Contact Info) Description 06/26/2025 2:30 PM EST Lab Draw Station - [address] [phone] Graves disease Social History Tobacco Use Types Packs/Day Years [...] ed Within the last 3 months, ho ashley many times did you visit the emergency [...] care for your loved ones. For example, early childhood educator aide or elderly care for an older adult? [...] on file documented as of this encounter Functional Status * Are you deaf or do you have serious difficulty hearing? Answer Date of Assessment Author No 02/28/2025 4:09 PM Adela Bains RN * Are you blind or do you have serious difficulty seeing, even when wearing glasses? Answer Date of Assessment Author No 02/28/2025 4:09 PM Adela Bains, TANISHA * Do you have serious difficulty walking [...] 02/28/2025 4:09 PM Adela Bains RN * Calculated C-SSRS Risk Score (Lifetime/Recent) Answer Date of Assessment Author No Risk Indicated 06/28/2025 7:49 PM Karen Naik RN * [place] Suicide Severity Rating Scale (Screener/Recent Self-Report) Question Answer Date of Assessment Author 1. Wish to be (Past 1 Month) No 06/28/2025 7:49 PM Anna Crowe RN 2. Non-Specific Active Suici astrid Thoughts (Past 1 Month) No 06/28/2025 7:49 PM Sa mary Crowe RN 6. Suicidal Behavior (Lifetime) No 7:49 PM Karen Crowe RN documented as of this encounter Mental Status * Because of a physical, mental, or emotional condition, do you have serious difficulty concentrating, remembering, or making decisions? (5 years old or older) Answer Entry Date Author No 02/28/2025 4:09 PM Adela Bains RN documented in this encounter Plan of Treatment Upcoming Encounters Date Type Department Care Team (Late st Contact Info) Description 07/04/2025 9:20 AM EST Procedure visit [facility] [address] [place] [phone] Mik Rueda MD [address] [place] [address] 07/16/2025 9:10 AM EST Office Visit [facility] [address] [place] [phone] Ladonna Moura NP [address] [place] [address] [address] [place] [address] 07/31/2025 10:40 AM EST Office Visit Endocrinology - [place] [address] [place] [address] Caridad Randhawa MD [address] [place] [address] 08/14/2025 11:30 AM EST Office Visit [facility] [address] [place] [phone] Theresa Dye PA [address] [place] [phone] Pending Results Name Type Priority Associated Diagnoses Date /Time Thyrotropin receptor antibody Lab Routine Graves disease 06/26/2025 2:40 PM EST documented as of this encounter Procedures Procedure Name Priority Date/Time Associated Diagnosis Comments SEDIMENTATION RATE Routine 06/26/2025 2: 40 PM EST Graves disease TRIIODOTHYRONINE FREE Routine 06/26/2025 2:40 PM EST Graves disease THYROID STIMULATING HORMONE Routine 06/26/2025 2:40 PM EST Graves disease THYROXINE FREE Routine 06/26/2025 2:40 PM EST Graves disease documented in this encounter Results * (ABNORMAL) Thyroid stimulating hormone (06/26/2025 2:40 PM EST) TSH <0.01(L) 0.40 - 4.00 mcIU/mL 06/26/2025 5:43 PM EST [facility]) [facility] Blood Venous blood specimen / Unknown Venipuncture / Unknown 06/26/2025 2:40 PM EST 06/26/2025 2:40 PM EST Caridad Randhawa MD LAB BLOOD ORDERABLES Final Result [facility] [address] [place] [address], [place] [phone] * (ABNORMAL) Thyroxine free (06/26/2025 2:40 PM EST) Free T4 3.60(H) 0.70 - 1.80 ng/dL 06/26/2025 5:34 PM EST [facility] Blood Venous blood specimen / Unknown Venipuncture / Unknown 06/26/2025 2:40 PM EST 06/26/2025 2:40 PM EST Caridad Randhawa MD LAB BLOOD ORDERABLES Final Result [facility] [address] [place] [address], [place] [phone] * (ABNORMAL) Triiodothyronine free (06/26/2025 2:40 PM EST) [facility] T3, Free 675(H) 230 - 420 pcg/dL 06/26/2025 5:33 PM EST [facility] Blood Venous blood specimen / Unknown Venipuncture / Unknown 06/26/2025 2:40 PM EST 06/26/2025 2:40 PM EST Caridad Randhawa MD LAB BLOOD ORDERABLES Final Result [facility] [address] [place] [address], [place] [phone] * Sedimentation rate (06/26/2025 2:40 PM EST) [facility] Sed Rate 15 0 - 20 mm/hr LAB HEMETOLOGY METHOD 06/26/2025 4:43 PM EST [facility] Blood Venous blood specimen / Unknown Venipuncture / Unknown 06/26/2025 2:40 PM EST 06/26/2025 2:40 PM EST us Caridad Randhawa MD LAB BLOOD ORDERABLES Final Result [facility] ([facility]) [facility] [address] [place] [address], documented in this encounter Visit Diagnoses Diagnosis Graves disease Toxic diffuse goiter without mention of thyrotoxic crisis or storm documented in this encounter Care Teams Account Information Clerk Relationship Specialty Start Date End Date Faye Ferrera MD [address] [place] [address] PCP - General Internal Medicine 02/24/25 documented as of this encounter
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
--- NOTE | 2025-06-28 15:23 | A.OFFVIS_ITS ---
Vital Signs 06/28/25 15:28 Height 5 ft Weight 175 lb BMI 34.2 Intake Visit Reasons: INJ RT Elbow Intake Note: Lalitha is a 49 year old female who presents today for a Right Lateral Epicondyle Injection. Last injection was administered on 04/12/24. Patient reports injection helped and lasted about a year. She is requesting to repeat injection. Allergies bee pollen (BEE STINGS) Allergy (Severe, Verified 03/09/25 16:44) ANAPHYLAXIS aluminum hydroxide (From MAALOX) Allergy (Intermediate, Verified 03/09/25 16:44) Anaphylaxis ciprofloxacin (From CIPRO) Allergy (Intermediate, Verified 03/09/25 16:44) RASH latex (LATEX) Allergy (Intermediate, Verified 03/09/25 16:44) RASH bacitracin (BACITRACIN) Allergy (Unknown, Verified 03/09/25 16:44) HIVES codeine Allergy (Unknown, Verified 03/09/25 16:44) unknown phenytoin (Dilantin) Allergy (Unknown, Verified 03/09/25 16:44) skin burning HPI HPI INJ RT Elbow: Details: 49-year-old female returns to the office today for her right elbow. She was seen by me March of 2024 with right elbow tendonitis where she had an injection which was helpful. She also does red light therapy on her right elbow which does provide relief. [facility] Medical History (Updated 03/10/25 @ 00:00 by Lauren Jay) DJD (degenerative joint disease) Migraines GERD (gastroesophageal reflux disease) Non-insulin dependent type 2 diabetes mellitus Sleep apnea treated with continuous positive airway pressure (CPAP) BMI 36.0-36.9,adult Abnormal TSH Thyroiditis Aortic dissection Acute suppurative thyroiditis Surgical History (Updated 03/29/23 @ 13:57 by Corey Alexis MD) History of hysterectomy for benign disease Tubal ligation status History of prior ablation treatment History of back surgery History of removal of cyst History of carpal tunnel release Family History (Reviewed 11/24/22 @ 14:51 by Arlyn Gagnon [facility]) Father Aortic dissection Throat cancer Mother HTN (hypertension) Brother No problems noted. Brother No problems noted. Sister No problems noted. Sister No problems noted. Son No problems noted. Son No problems noted. Daughter No problems noted. Daughter No problems noted. 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 No erythema or swelling. ROM full without pain. Tenderness over the lateral epicondyle and pain with resisted wrist extension. NVI. Office Procedures AMB Joint Injection/Aspiration Joint Injection/Aspiration Primary Site: Right Tennis Elbow Prep: site was prepped using aseptic technique, ethochloride spray was applied and injection warnings given Injected: 40 mg of, Decadron, with 1 mL of and 1% plain Lidocaine Procedure: The patient tolerated the procedure well and there was some relief with the local anesthesia Coding 84686 - Epicondyle Procedure code (CPT) selection complete Assessment & Plan Assessment & Plan (1) Lateral epicondylitis, right elbow: Code(s): M77.11 - Lateral epicondylitis, right elbow Category: Medical Plan: We discussed options today, which include steroid injection. The patient did consent to move forward with the injection, which was tolerated well.? I recommended rest, ice and elevation and OTC antiinflammatories prn for discomfort. If symptoms persist over the next 6-8 weeks, they will contact our office, otherwise, prn Coding Level of Care Code Est Pt Level 3 (23706) Add On Problem Visit Only Diagnoses Lateral epicondylitis, right elbow M77.11 CPT Codes Coding - Joint 2: 36356 - Epicondyle ([id number])
[2025-06-28 15:28] VITALS: BMI 34.2
--- OUTSIDE RECORDS SUMMARY | 2025-06-28 20:40 | XMS_ITS | Encounter Summary ---
Author Organization [facility] Address [address] [place] [address] Care Team Providers Care Business And Financial Counsel Name Role Phone Faye Ferrera MD Primary Care Provider + Reason for Visit * Reason Comments Chest Pain INC HYPERTHYROID MED . STATES CHEST IS POUNDING Encounter Details Date Type Department Care Team (Late st Contact Info) Description 06/28/2025 8:40 PM EST - Present Emergency [facility] Emergency [address] [place] [address] Mehran Stevenson MD [address] [place] [address] Social History Tobacco Use Types Packs/Day Years [...] for your loved ones. For example, child guidance counselor or elderly care for an older adult? [...] Sign Reading Time Taken Comments Blood Pressure 139/76 06/28/2025 8:58 PM EST Pulse 107 06/28/2025 8:58 PM EST Temperature 36.4 C (97.5 F) 06/28/2025 8:58 PM EST Respiratory Rate 20 06/28/2025 8:58 PM EST Oxygen Saturation 98% 06/28/2025 8:58 PM EST Inhaled Oxygen Concentration - - Weight 73.5 kg (162 lb) 06/28/2025 7:49 PM EST Height 152.4 cm (5') 06/28/2025 7:49 PM EST Body Mass Index 31.64 06/28/2025 7:49 PM EST documented in this encounter Functional [...] Author No Risk Indicated 06/28/2025 7:49 PM EST Karen Riggs RN * [place] Suicide Severity Rating Scale (Screener/Recent Self-Report) Question Answer Date of Assessment Author 1. Wish to be (Past 1 Month) No 06/28/2025 7:49 PM EST Anna Jean RN 2. Non-Specific Active Suici astrid Thoughts (Past 1 Month) No 06/28/2025 7:49 PM EST Sa mary Jean RN 6. Suicidal Behavior (Lifetime) No 7:49 PM EST Karen Jean RN documented as of this encounter Mental Status * Because of a physical, mental, or emotional condition, do you have serious difficulty concentrating, remembering, or making decisions? (5 years old or older) Answer Entry Date Author No 02/28/2025 4:09 PM EDT Adela Bowman RN documented in this encounter Progress Notes * CARINE Mishra - 06/28/2025 7:49 PM EST Patient with chest pressure tightness causing her to take off her bra at home. Intermittent since last night. Worsened when sitting watching TV today. Limited physical exam performed in medical screening triage: Gen: Alert & Oriented Cardiac: Appears well perfused Lungs: No increased work of breathing, no accessory muscle use Ext: No gross deformity ------- PLAN ------- Plan: Additional evaluation needed to rule out an emergency medical condition. ED * Karen Jean RN - 06/28/2025 7:45 PM EST Pt to ER from home with complaints of chest pressure and fast heart rate. Onset 1hr ago. I feel like my chest is pounding. Took her regular dose of propranolol last night and this AM. +nausea, headache, and shortness of breath. No vomiting. Last Wednesday dose of her thyroid med was increased. documented in this encounter Plan of Treatment Upcoming Encounters Date Type Department Care Team (Late st Contact Info) Description 07/04/2025 9:20 AM EST Procedure visit [facility] [address] [place] [address] Mik Rueda MD [address] [place] [address] 07/16/2025 9:10 AM EST Office Visit [facility] [address] [place] [address] Ladonna Moura NP [address] [place] [address] Dr Gildardo [address] [place] [id number] 07/31/2025 10:40 AM EST Office Visit [facility] [address] [place] [address] Caridad Randhawa MD [address] [place] [address] 08/14/2025 11:30 AM EST Office Visit [facility] [address] [place] [id number] Theresa Dye [address] [phone] Pending Results Name Type Priority Associated Diagnoses Date /Time XR Chest 2 Views Imaging STAT 06/28/20 10:00 PM EST Scheduled Orders Name Type Priority Associated Diagnoses Orde r Schedule ECG 12 lead ECG STAT Every 2 hours for 2 Occurrences starting 06/28/2025 until 06/28/2025, 1 completed Troponin I high sensitivity Lab Timed Now then every 1 hour for 2 Occurrences starting 06/28/2025 until 06/28/2025, 1 completed XR Chest 2 Views Imaging STAT Once for 1 Occurrences starting 06/28/2025 until 06/28/2025 documented as of this encounter Procedures * The patient is currently admitted. The information in this section might not be complete until the patient is discharged. Procedure Name Priority Date/Time Associated Diagnosis Comments POC , URINE DIAGNOSTIC STAT 06/28/2025 9:54 PM EST TROPONIN I HIGH SENSITIVITY Timed 06/28/2025 9:33 PM EST CBC WITH AUTO DIFFERENTIAL STAT 06/28/2025 9:33 PM EST CBC AND DIFFERENTIAL STAT 06/28/2025 9:33 PM EST B-TYPE NATRIURETIC PEPTIDE STAT 06/28/2025 9:33 PM EST MAGNESIUM STAT 06/28/2025 9:33 PM EST LIPASE STAT 06/28/2025 9:33 PM EST COMPREHENSIVE METABOLIC PANEL STAT 06/28/2025 9:33 PM EST ECG 12-LEAD STAT 06/28/2025 7:46 PM EST documented in this encounter Results * POC , urine manually resulted (06/28/2025 9:54 PM EST) Pathologist [facility] HCG, Ur POC Negative Negative POC hCG Int QC Pass? Yes Yes EXPIRATION DATE POC 12/12/2026 LOT NUMBER POC [id number] Urine Urine specimen obtained by clean catch procedure / Unknown 06/28/2025 9:54 PM EST Mehran Stevenson MD POINT OF CARE TEST ENTER/ EDIT ORDERABLES Final Result * (ABNORMAL) CBC auto differential (06/28/2025 9:33 PM EST) [facility] WBC 4.6(L) 4.8 - 10.8 K/mcL LAB HEMETOLOGY METHOD 06/28/2025 9:57 PM EST [facility] RBC 4.30 3.80 - 4.80 M/mcL LAB HEMETOLOGY METHOD 06/28/2025 9:57 PM EST [facility] Hemoglobin 13.3 11.5 - 16.0 g/dL LAB HEMETOLOGY METHOD 06/28/2025 9:57 PM EST [facility] Hematocrit 38.8 35.0 - 47.0 % LAB HEMETOLOGY METHOD 06/28/2025 9:57 PM [facility] MCV 89.8 79.0 - 98.0 FL LAB HEMETOLOGY METHOD 06/28/2025 9:57 PM [facility] MCH 30.8 27.0 - 32.0 pcg LAB HEMETOLOGY METHOD 06/28/2025 9:57 PM [facility] MCHC 34.3 32.0 - 37.0 g/dL LAB HEMETOLOGY METHOD 06/28/2025 9:57 PM [facility] RDW 11.4 11.0 - 15.0 % LAB HEMETOLOGY METHOD 06/28/2025 9:57 PM [facility] Platelets 478(H) 130 - 400 K/mcL LAB HEMETOLOGY METHOD 06/28/2025 9:57 PM [facility] MPV 8.6 7.0 - 11.0 FL LAB HEMETOLOGY METHOD 06/28/2025 9:57 PM [facility] NRBC 0.0 <1.0 % LAB HEMETOLOGY METHOD 06/28/2025 9:57 PM [facility] NRBC Absolute 0.00 <0.10 K/mcL LAB HEMETOLOGY METHOD 06/28/2025 9:57 PM [facility] Neutrophils Relative 76.8 % LAB HEMETOLOGY METHOD 06/28/2025 9:57 PM [facility] Lymphocytes Relative 19.7 % LAB HEMETOLOGY METHOD 06/28/2025 9:57 PM [facility] Monocytes Relative 2.2 % LAB HEMETOLOGY METHOD 06/28/2025 9:57 PM [facility] Eosinophils Relative 0.4 % LAB HEMETOLOGY METHOD 06/28/2025 9:57 PM [facility] Basophils Relative 0.2 % LAB HEMETOLOGY METHOD 06/28/2025 9:57 PM [facility] Immature Granulocytes Relative 0.7 % LAB HEMETOLOGY METHOD 06/28/2025 9:57 PM [facility] Neutrophils Absolute 3.52 1.50 - 7.00 K/[facility] LAB HEMETOLOGY METHOD 06/28/2025 9:57 PM EST [facility] Lymphocytes Absolute 0.90(L) 1.00 - 5.00 K/[facility] LAB HEMETOLOGY METHOD 06/28/2025 9:57 PM EST [facility] Monocytes Absolute 0.10(L) 0.20 - 1.00 K/[facility] LAB HEMETOLOGY METHOD 06/28/2025 9:57 PM EST [facility] Eosinophils Absolute 0.02 0.00 - 0.50 K/[facility] LAB HEMETOLOGY METHOD 06/28/2025 9:57 PM EST [facility] Basophils Absolute 0.01 0.00 - 0.20 K/[facility] LAB HEMETOLOGY METHOD 06/28/2025 9:57 PM EST [facility] Immature Granulocytes Absolute 0.03 0.00 - 0.03 K/[facility] LAB HEMETOLOGY METHOD 06/28/2025 9:57 PM EST [facility] Blood Venous blood specimen / Unknown Venipuncture / Unknown 06/28/2025 9:33 PM EST 06/28/2025 9:49 PM EST us Danette HAWK LAB BLOOD ORDERABLES Fin al Result [facility] [address] [place] [address], * B-type natriuretic peptide (06/28/2025 9:33 PM EST) BNP 41 <=100 pcg/mL 06/28/2025 10:11 PM EST [facility] Blood Venous blood specimen / Unknown Venipuncture / Unknown 06/28/2025 9:33 PM EST 06/28/2025 9:48 PM EST Narrative [facility] - 06/28/2025 10:11 PM EST Over the counter supplements containing high doses of biotin may interfere with this assay. If interference is suspected, patients shoud be retested after refraining from biotin supplements for 72 hours. Danette HAWK LAB BLOOD ORDERABLES Fin al Result Performing Organization Address [facility]/ZIP Co de Phone Number [facility] [address] [place] [address], [place] [phone] * Magnesium (06/28/2025 9:33 PM EST) Pathologist [facility] Magnesium 2.0 1.9 - 2.6 mg/dL 06/28/2025 10:13 PM EST [facility] Blood Venous blood specimen / Unknown Venipuncture / Unknown 06/28/2025 9:33 PM EST 06/28/2025 9:49 PM EST Danette HAWK LAB BLOOD ORDERABLES Fin al Result Performing Organization Address [facility] Co de Phone Number [facility] [address] [place] [address], [place] [phone] * (ABNORMAL) Lipase (06/28/2025 9:33 PM EST) [facility] Lipase 54(H) 12 - 53 unit/L 06/28/2025 10:13 PM EST [facility] Blood Venous blood specimen / Unknown Venipuncture / Unknown 06/28/2025 9:33 PM EST 06/28/2025 9:49 PM EST Danette HAWK LAB BLOOD ORDERABLES Fin al Result Performing Organization Address City/[facility]/ZIP Co de Phone Number [facility] [address] [place] [address], [place] [phone] * (ABNORMAL) Comprehensive metabolic panel (06/28/2025 9:33 PM EST) Pathologist [facility] Sodium 141 133 - 145 mmol/L 06/28/2025 10:24 PM [facility] Potassium 4.2 3.5 - 5.5 mmol/L 06/28/2025 10:24 PM [facility] Chloride 107 96 - 110 mmol/L 06/28/2025 10:24 PM [facility] CO2 24 21 - 32 mmol/L 06/28/2025 10:24 PM [facility] Anion Gap 10 3 - 11 06/28/2025 10:24 PM [facility] Glucose 126(H) 70 - 100 mg/dL 06/28/2025 10:24 PM [facility] BUN 15 5 - 25 mg/dL 06/28/2025 10:24 PM [facility] Creatinine 0.68 0.50 - 1.10 mg/dL 06/28/2025 10:24 PM [facility] eGFR 107 >=60 mL/min/1. 73m2 06/28/2025 10:24 PM [facility] Comment:Calculation based on the Chronic Kidney Disease Epidemiology Collaboration (CKD-EPI) equation refit without adjustment for race. BUN/Creatinine Ratio 22.1 06/28/2025 10:24 PM [facility] Calcium 9.6 8.5 - 10.5 mg/dL 06/28/2025 10:24 PM [facility] AST (SGOT) 151(H) 10 - 42 unit/L 06/28/2025 10:24 PM [facility] ALT (SGPT) 186(H) 10 - 60 unit/L 06/28/2025 10:24 PM [facility] Alkaline Phosphatase 206(H) 42 - 121 unit/L 06/28/2025 10:24 PM [facility] Total Protein 7.3 6.0 - 8.0 g/dL 06/28/2025 10:24 PM EST [facility] Albumin 4.3 3.2 - 5.0 g/dL 06/28/2025 10:24 PM EST [facility] Total Bilirubin 0.2 0.0 - 1.4 mg/dL 06/28/2025 10:24 PM EST [facility] Blood Venous blood specimen / Unknown Venipuncture / Unknown 06/28/2025 9:33 PM EST 06/28/2025 9:49 PM EST Danette HAWK LAB BLOOD ORDERABLES Fin al Result [facility] [address] [place] [address], [place] [phone] * Troponin I high sensitivity (06/28/2025 9:33 PM EST) [facility] High Sensitivity Troponin I <3 <=34 ng/L 06/28/2025 10:12 PM EST [facility] Blood Venous blood specimen / Unknown Venipuncture / Unknown 06/28/2025 9:33 PM EST 06/28/2025 9:49 PM EST Danette HAWK LAB BLOOD ORDERABLES Fin al Result [facility] [address] [place] [address], [place] [phone] * ECG 12 lead (06/28/2025 7:46 PM EST) [facility] Ventricular Rate ECG 111 BPM GEMUSE Atrial Rate 111 BPM GEMUSE P-R Interval 166 ms GEMUSE QRS Duration 90 ms GEMUSE Q-T Interval 354 ms GEMUSE QTc 481 ms GEMUSE P Wave Venus 69 degrees GEMUSE R Venus 26 degrees GEMUSE T Venus 34 degrees GEMUSE ECG Interpretation Sinus tachycardia Abnormal ECG When compared with ECG of 16-NOV-2025 22:14, No significant change was found Confirmed by Jaclyn CABELLO JOHN ([id number]) on 06/28/2025 9:45:56 PM GEMUSE 06/28/2025 7:46 PM EST 06/28/2025 9:45 PM EST Danette HAWK ECG ORDERABLES Final Re sult GEMUSE documented in this encounter Visit Diagnoses Not on filedocumented in this encounter Administered Medications Inactive Administered Medications - up to 3 most recent administrations Medication Order MAR Action Action Date Dose Rate Site propranoloL (INDERAL) tablet 80 mg 80 mg, oral, Once, On Jacqueline 06/28/25 at 2103, For 1 dose Given 06/28/2025 9:19 PM EST 80 mg sodium chloride 0.9 % bolus 1,000 mL 1,000 mL, intravenous, at 1,000 mL/hr, Administer over 1 Hours, Once, On Jacqueline 06/28/25 at 2101, For 1 dose New Bag 06/28/2025 9:34 PM EST 1,000 mL 1000 mL/hr documented in this encounter Active and Recently Administered Medications Times are shown in EST. Scheduled Medication Order 06/26/2025 06/27/2025 06/28/2025 propranoloL (INDERAL) tablet 80 mg (COMPLETED) 80 mg, oral, Once, On Jacqueline 06/28/25 at 2103, For 1 dose 2118 (Given - Provid er: Edna Dean RN) sodium chloride 0.9 % bolus 1,000 mL (COMPLETED) 1,000 mL, intravenous, at 1,000 mL/hr, Administer over 1 Hours, Once, On Jacqueline 06/28/25 at 2101, For 1 dose 2133 (New Bag - Prov ider: Edna Dean RN)2233 (Due: Stopped - Provider: Edna Dean RN) documented in this encounter Orders IV Count Last Ordered Date First Orde red Date INSERT PERIPHERAL IV 1 06/28/2025 documented in this encounter Care Teams Business And Financial Counsel Relationship Specialty Start Date End Date Faye Ferrera MD [address] [place] [address] PCP - General Internal Medicine 02/24/25 documented as of this encounter
--- OUTSIDE RECORDS SUMMARY | 2025-06-28 22:42 | XMS_ITS | Patient Health Record ---
Author Organization [facility] Address [address] [place] [address] Care Team Providers Care Siding Installer Name Role Phone ANDREW CHRISTOPHER Unavailable [phone] Allergies Allergen (clinical drug ingredient) Drug/Non Drug Allergy documented on EMR Reaction Allergy Type Onset Date Status Maalox anaphylaxis Drug Allergy Activ e Reason For Referral No Information Medications Medication SIG (Take, Route, Frequency, Duration) Notes Start Date End Date Status Ibuprofen 600 MG Tablet 1 tablet with fo od or milk as needed Orally as needed Active Fexofenadine HCl 180 MG Tablet 1 tablet Swallow whole with water; do not take with fruit juices. Orally Twice a day Active LaMICtal 25 MG Tablet 1 tablet Orally Active Wegovy 0.25mg 0.25mg once subcu weekly; Duration: 30 days Not-Taking tiZANidine HCl 4 MG Tablet 1 tablet as needed Orally every 6 hours as needed Active Wegovy 0.25mg 0.25mg 0.25mg intro weekly ; Duration: 30 days 08/04/2022 Not-Taking SEROquel 50 MG Tablet 1 tablet at bedtim e Orally Once a day Not-Taking Temazepam 30 MG Capsule 1 capsule at bed time as needed Orally Once a day Active Lyrica 300 MG Capsule 1 capsule Orally T wice a day Active Flovent HFA 220 MCG/ACT Aerosol 2 puffs Inhalation as needed Active ProAir HFA 108 (90 Base) MCG/ACT Aerosol Solution 1 puff as needed Inhalation as needed Active metFORMIN HCl 500 MG Tablet TAKE 1 TABLET BY MOUTH EVERY DAY WITH MEALS FOR 30 DAYS; Duration: 90 Active Wellbutrin XL 300 MG Tablet Extended Release 24 Hour 2 tablets. 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: DOG RACES MANAGER Problems Problem Type SNOMED Code ICD Code Onset Dates Problem Status W/U Status Risk Notes Problem Chronic pain (20104350) Other chronic pain (G89.29) Active confirmed Problem Anxiety (82867167) Anxiety (F41.9) Active confirmed Problem Insomnia (502812439) Insomnia, unspecified type (G47.00) Active confirmed Problem Vitamin D deficiency (43478853) Vitamin D deficiency (E55.9) Active confirmed Problem Obesity (122408209) Class 2 obesity due to excess calories without serious comorbidity in adult, unspecified BMI (E66.09) Active confirmed Problem Obese class II (903461161888205 ) BMI 36.0-36.9,adult (Z68.36) Active confirmed Problem Exacerbation of moderate persistent asthma (disorder) (958875889) Moderate persistent asthma with acute exacerbation (J45.41) Active confirmed Problem Bipolar disorder (84891942) Bipolar 1 disorder, depressed (F31.9) Active confirmed Problem Irritable bowel syndrome (11922269) Irritable bowel syndrome with both constipation and [...] [employer] [address] [place] [address] [phone] Lalitha Beyer Self - patient is the insured Medications Administered Medication Instructions Date of Administration Dosage Notes MICC B12 INJECTION 05/18/2022 1 mL Lot # [id number] Medical (General) History Medical History History ICD [...]
--- OUTSIDE RECORDS SUMMARY | 2025-06-28 22:42 | XMS_ITS | Data Portability ---
Author Organization [facility], [facility] Address [address] [place] [address] Care Team Providers Care Cq Developer Name Role Phone HIM CCA OTHER LEROY MILLSIA Primary Care Provider Assessment Encounter Date Assessment Date Assessment LastModified by Organization Details LastModified Time 11/16/2024 11/16/2024 I have reviewed and agree with the assessment and plan as documented by the appointment coordinator. I provided real-time medical direction for this encounter and was immediately available to provide additional phone-based assistance as needed. HPI: 49F history of migraines presenting with headache x 36 hours, feels like typical migraine. No head injury, no fever. Mild nausea, no vomiting. Has photophobia. Tried fioricet with minimal relief. No NSAIDs today. No intolerances to nsaids. O/E:.Vitals at baseline. Normal neuro exam. Impression/Plan : Suspect migraine, recommend Toradol/Zofran. Reviewed allergies. Red flags and return precautions discussed. We discussed the diagnostic uncertainty of home visits and the risk associated with this. In this case, the patient and I felt this to be an acceptable and reasonable amount of risk given the benefit of avoiding an ED visit. We discussed the need to seek care urgently/emerge ntly in the setting of any new or worsening serious symptoms, particularly weakness, dizziness, fever, chills, CP, SOB, worsening diarrhea, nausea, vomiting or any other concerns. [email or web address] Not available 11/16/2024 18:23:09 03/06/2025 03/06/2025 service called for SOB found 49 dylan with hx major depression HL IBS c/o 2-3d worsening sharp chest pain rad L arm starting this evening, assoc SOB VS af 122/79 65 18 99%RA EKG: sinus, ST elevations leads I,II, avf with lessor ST elev V1,2,3 #STEMI refer ED ASA 325mg [email or web address] Not available 03/06/2025 23:49:38 03/09/2025 03/09/2025 service called for SOB found 49 dylan with hx major depression HL IBS c/o recurrance of sharp chest pain rad L arm, with nausea, assoc SOB negative ED assessment for episode 3d prior VS af 143/80s 69 18 97%RA EKG: sinus, ST elevations leads I,II, avf with lessor ST elev V1, very similar distribution to prior #STEMI refer ED ASA 325mg [email or web address] Not available 03/09/2025 15:36:25 Plan of Treatment Reminders Order Date Submit Date Provider Last Modified By Organization Details Last Modified Time Details Appointments None recorded. Lab BMP, serum or plasma [address], [phone] 5 09:47:43 rapid SARS CoV 2 Ag, QL IA, respiratory specimen [address], [address] 5 09:47:44 rapid flu (A+B) [address], [address] 5 09:47:44 BMP, serum or plasma [address], [address] 5 09:47:44 Referral None recorded. Procedures None recorded. Surgeries None recorded. Imaging electrocard iogram 2024 025 [facility], [address] [place] [address], [address] 5 15:56:52 electrocard iogram 2024 025 [facility], [address] [place] [address], [address] 15:57:11 Medication Orders aspirin 81 mg chewable tablet 2024 025 [email or web address] [facility]armacy #0488, [address] [place], [address], 5 15:36:26 ondansetron HCl (PF) 4 mg/2 mL injection solution 2024 025 [email or web address] [facility]/Pharmacy #0488, [address] [place], [address], 5 16:03:35 sodium chloride 0.9 % intravenous solution [address]/Pharmacy #0488, [address] [place], [address], 5 16:03:35 aspirin 81 mg chewable tablet [address]/Pharmacy #0488, [address] [place], [address], 23:50:06 ketorolac 30 mg/mL injection solution [email or web address] [address] [place], [address], 17:58:26 ondansetron 4 mg disintegrat ing tablet 2024 025 [facility]/Pharmacy #0488, [address] [place], [address], 17:58:26 prednisone 20 mg tablet 2024 025 CHARLY [facility]/Pharmacy #0488, [address] [place], [address], 5 20:37:04 methylpredn isolone sod succ (PF) 125 mg/2 mL solution for injection 2024 025 [email or web address] [facility]/Pharmacy #0488, [address] [place], [address], 5 20:37:02 potassium chloride ER 20 mEq tablet,exte nded release 2024 025 [facility] [address] [place], [address], 5 21:04:45 prednisone 20 mg tablet 2024 025 [facility] [address] [place], [address], 5 19:42:03 prednisone 20 mg tablet 2024 025 [facility] [address] [place], [address], 5 19:42:04 azithromyci n 500 mg tablet 2024 025 [facility] [address] [place], [address], 5 19:42:03 azithromyci n 250 mg tablet 2024 025 [facility] [address] [place], [address], 5 19:42:04 Patient TargetsNo targets recorded. Patient InstructionsNo instructions recorded. Reason for Referral None Reported. Results Created Date Observation Date Name Description Value Unit Range Abnormal Flag Note LastModifiedBy Organization Detail LastModifiedTime 03/06/2003/07/2025 elect rocbutch diogr am No observ ation record ed. [email or web address] [address], [address] 03/07/2025 08:05:55 03/09/20 25 03/09/2025 elect rocbutch diogr am No observ ation record ed. [email or web address] [address], [address] 03/09/2025 16:40:50 Result Notes None recorded. Problems Name Problem SNOMED Code Status Onset Date Resolution Date Notes Provider Name and Address Organization Details Recorded Time Allergic rhinitis 18948511 Active Elena Odom MD [address] [place] [address],[address], [place], [address], [employer] [facility], [employer] 5 23:45:23 Mixed hyperlipidemia 203335785 Active Elena Odom MD [address] [place] [address],[address], [place], [address], [employer], [employer] 5 23:45:31 Irritable bowel syndrome 73927382 Active Elena Odom MD [address] [place] [address],[address], [place], [address], [employer], [employer] 5 23:45:39 Moderate major depression 509053 Active 2024 Elena Odom MD [address] [place] [address],[address], [place], [address], [employer], [employer] 5 23:45:18 Problem Notes None recorded. Medical Equipment None Reported. Allergies Allergen ID Allergen Name Allergen Category Reaction Reaction Severity Criticality Documentation Date Start Date Code Code System Note Provider Name and Address Organization Details Recorded Time 94385 Maalox Max medicatio n Not available Not available Not available 06/20/2024 21096 6 RxNorm Not Available [facility] - [facility] 4 11:56:23 11543 DuoNeb medicatio n Not available Not available Not available 08/08/2024 22572 9 RxNorm Not Available [facility] - [facility] 5 16:56:20 13479 sumatript an medicatio n Not available Not available Not available 11/16/2024 85931 RxNorm Not Available [facility] - production 5 12:57:34 15379 Topamax medicatio n Not available Not available Not available 03/06/2025 54357 3 RxNorm Not Available [facility] - production 5 19:57:12 4207 codeine medicatio n Not available Not available Not available 07/17/2023 2670 RxNorm The heada karely -more of an ADR Elvira Calvin MD [address] [place] [address],[address], [place], [address], [employer] 3 22:19:16 4208 aluminum hydroxide / magnesium hydroxide / simethico ne medicatio n Not available Not available Not available 07/17/2023 86226 8 RxNorm Elvira Calvin MD [address] [facility],[address], [place], [address], [employer] 3 22:19:35 4209 Dilantin medicatio n Not available Not available Not available 07/17/2023 18689 0 RxNorm Not Available [facility] - production 4 11:56:23 4210 bacitraci n medicatio n Not available Not available Not available 07/17/2023 1291 RxNorm Not Available [facility] - production 5 16:56:20 4211 ciproflox acin medicatio n Not available Not available Not available 07/17/2023 2551 RxNorm Not Available [facility] - production 4 03:45:37 Medications Name Sig Start Date Stop Date Status Note LastModified by Organization Details LastModified Time quetiapine 25 mg tablet TAKE 1 TO 2 TABLETS BY MOUTH EVERY NIGHT NEEDED active Not Available Not Available No t Available metformin 500 mg tablet TAKE 1 TABLET BY MOUTH EVERY DAY WITH MEALS FOR 30 DAYS active Not Available Not Available No t Available prednisone 10 mg tablet TAKE 4 TABS BY MOUTH DAILY X 2 DAYS, THEN DECREASE BY ONE TABLET PER DAY UNTIL DONE. active Not Available Not Available No t Available metoclopram jose guadalupe 5 mg/mL injection solution Take 10 mg by injection route. 2023 active Not Available Not Available Not Avai lable albuterol sulfate 2.5 mg/3 mL (0.083 %) solution for nebulizatio n USE 1 VIAL INHALATIO N VIA NEBULIZER EVERY 6 HOURS NEEDED FOR WHEEZING active Not Available Not Available No t Available cetirizine 10 mg tablet TAKE 1 TABLET BY MOUTH EVERY DAY active Not Available Not Available No t Available azithromyci n 250 mg tablet TAKE 1 TABLET (250 MG) BY ORAL ROUTE ONCE DAILY FOR 4 DAYS active Not Available Not Available No t Available ibuprofen 800 mg tablet TAKE 1 TABLET (ORAL) EVERY 8 HOURS (PAIN) FOR 7 DAYS active Not Available Not Available No t Available tizanidine 4 mg tablet TAKE 1 TABLET BY MOUTH EVERY 6 HOURS NEEDED FOR MODERATE PAIN active Not Available Not Available No t Available fluconazole 150 mg tablet TAKE 1 TABLET BY MOUTH ONCE, REPEAT DOSE IF STILL HAVING SYMPTOMS IN 72 HOURS active Not Available Not Available No t Available ketotifen 0.025 % (0.035 %) eye drops PLACE 1 DROP INTO BOTH EYES EVERY 8 HOURS active Not Available Not Available No t Available valacyclovi r 1 gram tablet TAKE 2 TABLETS BY MOUTH ONCE active Not Available Not Available No t Available famotidine 40 mg tablet TAKE 1 TABLET BY MOUTH EVERYDAY AT BEDTIME active Not Available Not Available No t Available prednisone 20 mg tablet TAKE 2 TABLETS BY MOUTH EVERY DAY FOR 5 DAYS active Not Available Not Available No t Available betamethaso ne, augmented 0.05 % topical cream APPLY TOPICALLY 2 TIMES A DAY FOR 14 DAYS, TO AFFECTED AREA active Not Available Not Available No t Available phentermine 15 mg capsule TAKE 1 CAPSULE BY MOUTH EVERY DAY IN THE MORNING active Not Available Not Available No t Available hydroxyzine pamoate 50 mg capsule TAKE 1 CAPSULE BY MOUTH EVERY 6 HOURS NEEDED active Not Available Not Available No t Available fexofenadin e 180 mg tablet TAKE 1 TABLET BY MOUTH TWICE A DAY active Not Available Not Available No t Available valacyclovi r 500 mg tablet TAKE 1 TABLET BY MOUTH EVERY DAY active Not Available Not Available No t Available ketorolac 30 mg/mL (1 mL) injection solution Inject 1 mL by intramusc ular route. 2022 active Not Available Not Available Not Avai lable butalbital- acetaminoph en-caffeine 50 mg-325 mg-40 mg tablet PLEASE SEE ATTACHED FOR DETAILED DIRECTION S active Not Available Not Available No t Available lamotrigine 25 mg tablet TAKE 1/2 TABLET BY MOUTH EVERY DAY FOR 2 WEEKS THEN TAKE 1 TABLET BY MOUTH EVERY DAY active Not Available Not Available No t Available amoxicillin 875 mg tablet TAKE 1 TABLET BY MOUTH EVERY DAY FOR 10 DAYS 06/20 completed Not Available Not Available Not Available methocarbam ol 750 mg tablet TAKE 1 TABLET BY MOUTH EVERY 6 HOURS NEEDED FOR MUSCLE SPASM active Not Available Not Available No t Available temazepam 30 mg capsule TAKE 1 CAPSULE BY MOUTH EVERY NIGHT active Not Available Not Available No t Available phenazopyri dine 100 mg tablet TAKE 1 TABLET (ORAL) 3 TIMES PER DAY FOR 6 DOSES active Not Available Not Available No t Available cephalexin 500 mg capsule TAKE 1 CAPSULE BY MOUTH 4 TIMES A DAY FOR 7 DAYS 06/20 completed Not Available Not Available Not Available erythromyci n 5 mg/gram (0.5 %) eye ointment APPLY 0.5 INCH TO RIGHT EYE 4 TIMES A DAY active Not Available Not Available No t Available nystatin 100,000 unit/gram topical cream APPLY THIN LAYER UNDER BREAST FOLDS TOPICALLY TWICE A DAY FOR 7 DAYS active Not Available Not Available No t Available dexamethaso ne 4 mg tablet TAKE 1 TABLET BY MOUTH TWICE A DAY active Not Available Not Available No t Available omeprazole 20 mg capsule,del ayed release TAKE 1 CAPSULE BY MOUTH DAILY FOR 360 DAYS. active Not Available Not Available No t Available mupirocin 2 % topical ointment APPLY 3 TIMES DAILY DIRECTED FOR 5 DAYS active Not Available Not Available No t Available estradiol 0.5 mg tablet TAKE 1 TABLET BY MOUTH EVERY DAY active Not Available Not Available No t Available nystatin 100,000 unit/gram topical powder APPLY 1 APPLICATI ON TOPICALLY 2 TIMES A DAY,X21 DAYS active Not Available Not Available No t Available epinephrine 0.3 mg/0.3 mL injection, auto-inject or INJECT 0.3 MG INTRAMUSC ULARLY ONCE active Not Available Not Available No t Available ibuprofen 600 mg tablet TAKE 1 TABLET BY MOUTH 3 TIMES A DAY NEEDED FOR MODERATE PAIN active Not Available Not Available No t Available estradiol 0.01% (0.1 mg/gram) vaginal cream INSERT 1 GRAM VAGINALLY AT BED TIME WEDNESDAY,, WEDNESDAY FOR MAINTENAN CE. active Not Available Not Available No t Available methylpredn isolone 4 mg tablets in a dose pack TAKE 6 TABLETS ON DAY 1 DIRECTED ON PACKAGE AND DECREASE BY 1 TAB EACH DAY FOR A TOTAL OF 6 DAYS active Not Available Not Available No t Available celecoxib 100 mg capsule TAKE 1 CAPSULE BY MOUTH TWICE A DAY AVOID OTHER NSAIDS WHILE TAKING THIS MEDICATIO N active Not Available Not Available No t Available ketoconazol e 2 % topical cream APPLY TO AFFECTED AREA TWICE A DAY FOR 14 DAYS active Not Available Not Available No t Available ondansetron 4 mg disintegrat ing tablet DISSOLVE 1 TABLET ON TONGUE 3 TIMES A DAY NEEDED FOR NAUSEA active Not Available Not Available No t Available fluticasone propionate 50 mcg/actuati on nasal spray,suspe nsion USE 1 SPRAY IN EACH NOSTRIL TWICE A DAY active Not Available Not Available No t Available clotrimazol e 1 % topical cream APPLY TO AFFECTED AREA TWICE A DAY FOR 14 DAYS active Not Available Not Available No t Available diazepam 5 mg tablet TAKE 1 TABLET BY MOUTH 1 HOUR PRIOR TO PROCEDURE . MAY REPEAT X 1 ON ARRIVAL TO [facility] IF NEEDED. active Not Available Not Available No t Available Ventolin HFA 90 mcg/actuati on aerosol inhaler INHALE 2 PUFFS INTO LUNGS EVERY 4 HOURS NEEDED FOR WHEEZING/ SHORTNESS OF BREATH active Not Available Not Available No t Available oxycodone 5 mg tablet TAKE 1 TABLET BY MOUTH EVERY 6 HOURS NEEDED FOR PAIN PARTIAL FILL UPON PATIENT REQUEST. active Not Available Not Available No t Available azithromyci n 500 mg tablet Take 1 tablet every day by oral route for 3 days. 2024 active Not Available Not Available Not Avai lable bupropion HCl XL 150 mg 24 hr tablet, extended release TAKE 3 TABLETS BY MOUTH DAILY active Not Available Not Available No t Available topiramate 50 mg tablet TAKE 1 TABLET BY MOUTH EVERY DAY active Not Available Not Available No t Available ketorolac 15 mg/mL injection syringe Inject 15 mg by intramusc ular route. 2023 active Not Available Not Available Not Avai lable Pain Relief Extra Strength (acetaminop hen) 500 mg tablet TAKE 2 TABLETS BY MOUTH 4 TIMES A DAY FOR 7 DAYS FOR PAIN active Not Available Not Available No t Available pregabalin 300 mg capsule TAKE 1 CAPSULE BY MOUTH TWICE A DAY active Not Available Not Available No t Available ondansetron HCl (PF) 4 mg/2 mL injection solution Take 4 mg by injection route. 2023 active Not Available Not Available Not Avai lable levocetiriz ine 5 mg tablet TAKE 1 TABLET BY MOUTH EVERY EVENING active Not Available Not Available No t Available ketorolac 30 mg/mL injection solution Inject 1 mL every 6 hours by intraveno us route. 2023 active Not Available Not Available Not Avai lable lidocaine 5 % topical ointment APPLY TO AFFECTED AREAS 3 TIMES DAILY WASH HANDS THOROUGHL Y AFTER APPLICATI ON active Not Available Not Available No t Available Linzess 290 mcg capsule TAKE 1 CAPSULE BY MOUTH EVERY DAY IN THE MORNING BEFORE BREAKFAST active Not Available Not Available No t Available Asmanex HFA 100 mcg/actuati on aerosol inhaler INHALE 2 PUFFS BY MOUTH 2 TIMES A DAY,INSTR :RINSE MOUTH AND THROAT AFTER USE active Not Available Not Available No t Available Wegovy 0.25 mg/0.5 mL subcutaneou s pen injector INJECT0.2 5 MG SUBCUTANE OUSLY EVERY WEEK IN THE ABDOMEN, THIGH, OR UPPER ARM FOR 4 WEEKS active Not Available Not Available No t Available Paxlovid 300 mg (150 mg x 2)-100 mg tablets in a dose pack TAKE 3 TABLETS BY MOUTH TWICE A DAY FOR 5 DAYS active Not Available Not Available No t Available Zepbound 5 mg/0.5 mL subcutaneou s pen injector INJECT 1 PEN SUBCUTANE OUS INJECTION EVERY WEEK. ROTATE INJECTION SITES active Not Available Not Available No t Available Zepbound 2.5 mg/0.5 mL subcutaneou s pen injector INJECT 2.5 MGS SUBCUTANE OUS EVERY WEEK, ROTATE INJECTION SITES active Not Available Not Available No t Available Zepbound 7.5 mg/0.5 mL subcutaneou s pen injector INJECT 7.5 MG SUBCUTANE OUSLY EVERY WEEK,INST R:ROTATE INJECTION SITES active Not Available Not Available No t Available Vitals Date Recorded Heart rate Respiratory rate Oxygen saturation Body temperature Systolic And Diastolic Provider Name and Address Organization Details Last Updated DateTime 5 96 /min 16 /min 98 % 100.1 [degF] 130/70 mm[Hg] Not Available [employer] 5 18:22:39 Date Recorded Body weight Body temperature Body height Respiratory rate Oxygen saturation Heart rate Systolic And Diastolic Provider Name and Address Organization Details Last Updated DateTime 5 78027.6 8 g 98 [degF] 152.4 cm 18 /min 100 % 102 /min 122/82 mm[Hg] Not Available [employer] 5 20:22:58 Date Recorded Respiratory rate Heart rate Body height Oxygen saturation Body temperature Body weight Systolic And Diastolic Provider Name and Address Organization Details Last Updated DateTime 5 14 /min 76 /min 152.4 cm 98 % 98 [degF] 67853.8 g 134/85 mm[Hg] Not Available [facility] [employer] 5 17:55:30 Date Recorded Heart rate Body weight Oxygen saturation Body temperature Respiratory rate Body height Systolic And Diastolic Provider Name and Address Organization Details Last Updated DateTime 5 65 /min 61181.6 4 g 99 % 98 [degF] 18 /min 152.4 cm 122/79 mm[Hg] Not Available [facility] 21:20:43 Date Recorded Oxygen saturation Respiratory rate Heart rate Body weight Body temperature Body height Systolic And Diastolic Provider Name and Address Organization Details Last Updated DateTime 5 97 % 19 /min 69 /min 06637.6 g 97.8 [degF] 152.4 cm 143/68 mm[Hg] Not Available [facility] 15:24:59 Social History None recorded. Functional Status None recorded. Mental Status None recorded. Family History Nothing Reported. Medical History No medical history recorded. Gynecological HistoryNo gynecological history recorded. Obstetrics History GPAL:G 0 P 0 0 0 0 Past Encounters Encounter ID Performer Location Encounter Start Date Encounter Closed Date Diagnosis/Indication Diagnosis SNOMED-CT Code Diagnosis ICD10 Code Diagnosis IMO Codes Diagnosis Note [id number] Elvira Calvin MD [facility] [address] [place] [phone] 07/16/2023 19:12:24 07/20/2023 11:51:56 Low back pain 889926529 M54.50 advised ice / wrapped in a towel alternatin g w/ gentle heat q 3-4H w/a to affected area. Advised to avoid uncomforta ble movements. Advised to hold any more NSAIDs until tomorrow and limit her ibuprofen if it causes GI upset to 600 mg 3 times a day. She denies any possibilit y of , she reports has no history of GI bleeding or CKD, we offered ketorolac and accepted.A dvised patient she can take Tylenol as well which she has at home. I advised her to follow-up with her PCP/back specialist soon as possible to discuss a treatment plan. [place]ized understand [place] [id number] Bhupendra Kern MD [facility] [address] [place] [phone] 11/18/2023 19:23:31 11/19/2023 12:11:01 Migraine 45752274 G43.909 Patient reports symptoms consistent with her typical migraine. No response from typical medication s. Plan to treat symptomati susie and ensure close PCP follow-up. Red flags reviewed by appointment coordinator. [id number] Pineda Escobar MD [facility] [address] [place] [phone] 11/23/2023 15:26:52 12/17/2023 10:47:02 Streptococcal sore throat 95837143 J02.0 [id number] Ximena Wagner MD [facility] [address] [place] [phone] 04/29/2024 13:18:35 04/29/2024 17:30:33 Sore throat 301396811 J02.9 [id number] Elena Odom MD [facility] [address] [place] [phone] 06/20/2024 16:10:18 06/20/2024 20:42:17 Chronic low back pain 906761167 M54.50 [id number] Bhupendra Kern MD [facility] [address] [place] [phone] 08/08/2024 18:22:37 08/08/2024 21:59:25 Exacerbation of intermittent asthma 484675190 J45.21 As noted, we were called to see this patient regarding concerns of wheezing. Evaluation in the field was performed by my appointment coordinator colleague, as noted above, I provided real-time direction and supervisio n for this visit. The evaluation revealed evidence of asthma exacerbati on with greenish production of sputum but no respirator y distress. Impression :acute exacerbati on of asthma Plan:stero eladio, azben in Dispositio n: We discussed the diagnostic uncertaint y of home visits and the risk associated with this. In this case, the patient and I felt this to be an acceptable and reasonable amount of risk given the benefit of avoiding an ED visit. We discussed the need to seek care urgently/e mergently in the setting of any new or worsening serious symptoms, particular ly worsening dyspnea, chest pain [id number] ALLIE ARECHIGA MD [facility] [address] [place] [phone] 11/10/2024 20:20:15 11/11/2024 18:20:07 Acute asthma 676353718 J45.901 [id number] Evaluation in the field was performed by my appointment coordinator colleague, as noted above, I provided real-time direction and supervisio n for this visit. The evaluation revealed The patient is a 49-year-ol d female with a history of asthma, chronic back pain, depression , obesity, and migraine headaches. She presents with complaints of shortness of breath, wheezing, cough, postnasal drip, runny nose, sneezing, right ear fullness ( fluid-fi lled sensation) , and itchy/wate ry eyes.She denies fever, chills, headache, or dizziness. The patient has been using alternatin g saline and albuterol nebulizer treatments , along with her Asmanex inhaler. She has also taken loratadine , pseudoephe drine, diphenhydr amine, and eye drops, but reports minimal relief of respirator y symptoms. She has a known allergy to ipratropiu m. VS: BP : 122/ 82, HR 102, RR 18. SpO2 100%, Room Air at Rest Temperatur e 98.0 FPhysical Examinatio n:General: Alert, oriented, in no acute distress.R espiratory : Speaking in full sentences, lungs clear to auscultati on bilaterall y (noted immediatel y post-albut radha nebulizer treatment) .Cardiovas cular: Normal heart sounds, no lower extremity edema.BMP: Remarkable for potassium 3.4 mEq/L.Othe rwise unremarkab le.Allergi es reviewed. Impression :Asthma exacerbati onSeasonal allergic rhinitis Plan:-Solu -Medrol 125 mg IV administer ed during visit.Pres cription for prednisone 40 mg orally once daily for 5 days sent to patient's pharmacy.- Advised to continue using albuterol nebulizer treatments and saline nebulizers as prescribed .-Continue Asmanex inhaler use daily.-Con tinue daily antihistam ine (loratadin e or equivalent ), nasal decongesta ntsaline nasal sprays for symptomati c relief.- Red Flags Discussed with Patient: worsening shortness of breath, inability to speak in full sentences, chest pain, significan t dizziness, confusion, persistent fevers, or failure to improve after 48 hours.-Pt advised to follow up with primary care provider or pulmonolog ist if symptoms do not resolve or worsen despite treatment. Primary care, consider__ _ Dispositio n: We discussed the diagnostic uncertaint y of home visits and the risk associated with this. In this case, the patient and I felt this to be an acceptable and reasonable amount of risk given the benefit of avoiding an ED visit. We discussed the need to seek care urgently/e mergently in the setting of any new or worsening serious symptoms, particular ly worsening shortness of breath, inability to speak in full sentences, chest pain, significan t dizziness, confusion, persistent fevers, or failure to improve after 48 hours. [id number] Delia Jean-Baptiste MD [facility] - [address] [phone] 11/16/2024 17:55:29 11/16/2024 20:05:36 Migraine with aura [id number] G43.755 [id number] Elena Odom MD [facility] [address] [phone] 03/06/2025 21:20:39 03/07/2025 10:46:09 Myocardial infarction [id number] I21.3 [id number] Elena Odom MD [facility] [address] [phone] 03/09/2025 15:24:50 03/09/2025 22:01:57 Myocardial infarction [id number] I21.3 [id number] Health Concerns Section Related Observation LastModified by Organization Detai ls LastModified Time None Recorded Concern Status LastModified by Organization Details LastModified Time None Recorded Advance Directives Directive None Recorded Payers Insurance Date Sequence Insurance Name Policy Number Policy Ledesma Covered Member ID Ledesma Member ID Guarantor Name 03/18/2025 1 [facility] [place] DOS ON OR AFTER 2022 - DUAL ELIGIBLE - FPC OPTIONS AND ONE CARE (MEDICARE REPLACEMENT/ADV ANTAGE - HMO) Lalitha Beyer [id number] Lalitha Beyer Notes Date Note Type Note Provider Name and Address Organization Details Recorded Time 08/08/2024 text/html CRC Nurse Triage Notes (Elle Virgen - RN): Reason For Request: Patient has Breathing Difficulty, temp 100.9, body aches, headache, neg covid test, and has a cough. Patient Reports: History of asthma, increased use of inhaler; Sputum increase ; Cough; Shortness of breath with exertion Denies: Increased work of breathing/labored with or without fever Unable to speak in full sentences without distress Discoloration of skin -cyanosis Needs to sleep sitting up, can t catch breath Shortness of breath in setting of confusion Chief Complaints: Breathing problems, Cough PMH: COPD/Asthma, Chronic Back Pain, Depression, Obesity, Migraine PMH Reviewed at 08/08/2024: Allergies Reviewed at 08/08/2024:56 Comments: Patient reports asthma exacerbation. Using neb treatment every 4 hours. Albuterol not lasting 4 hours. Productive cough with think green sputum. Temp 100.9 at noon, took Ibuprofen. Alternating between Tylenol and Ibuprofen. Symptoms started on Wednesday. Patient has dyspnea on exertion and at rest with coughing. Covid test negative last night. Patient has a headache from coughing. Took Fioricet. Education provided on the response time and the member was advised to monitor reported s/s and seek emergency treatment if needed. Medical Certification Specialist Organization Information for Chano Webb Business Legal Name: [employer] Address: [address] [place] [address], E Tailer: Raphael Schultz MD CLIA No.: [id number] Medical Certification Specialist POC Test Results from Chano Webb Rapid COVID antigen (18:20:14) COVID: - Rapid influenza antigen (18:20:22) Flu: - ...................... ...................... ...................... ...................... ...................... ...................... ......... Medical Certification Specialist Note From Chano Webb: Dispatched to the call address for the female with cold like symptoms. Pt states she has been sick for 5 days now and her symptoms have been getting worse. She states that she has a Hx of asthma and has been doing everything she can think of at home. She complains of headache, body aches, fevers, difficulty breathing at times, chest congestion, wheezing and lethargy. She states she has been taking albuterol nebulizers every 4 hours and nebulizing inhalation saline in-between to help break up the mucous. She has also been taking OTC medications with mild effect as well as alternating Tylenol and Motrin for the fevers/body aches. She self tested for Covid yesterday and was (-). She denies n/v/d and chest pain or current shortness of breath. Pt was found opening door, in no obvious distress, CAOx4, airway open and patent, breathing non labored, able to speak in full sentences, -JVD, -HEENT, skin color PWD with good turgor, abd soft non tender/distended, pupils PERRL, +CMSx4, -edema/swelling, +CMSx4, lung sounds with slight expiratory wheezing-Pt just finished a nebulizer prior to my arrival. Rapid Covid/Flu (-). [facility] consulted. Pt given 500mg Azithromycin and 40mg PO Prednisone. Red flags discussed. Pt advised to follow up with PCP. ALL times are approx. ...................... ...................... ...................... ...................... ...................... ...................... ......... [facility] Consulted: Bhupendra Kern ...................... ...................... ...................... ...................... ...................... ...................... ......... Disposition: Fulfilled Bhupendra Kern MD [address] [facility],[address], [place], [phone], [email or web address] 08/08/2024 19:42:17 11/10/2024 text/html ROS as noted in the HPI CRC Nurse Triage Notes (Marina Keller): Reason For Request: Pt reporting asthma flare because of her allergies Denies: Increased work of breathing/labored with or without fever Unable to speak in full sentences without distress Discoloration of skin -cyanosis Needs to sleep sitting up, can t catch breath Shortness of breath in setting of confusion Chief Complaints: Breathing Problems, Cough, Ear Complaint, Eye Complaint, Sore Throat PMH: COPD/Asthma, Chronic Back Pain, Depression, Obesity, Migraine PMH Reviewed at 11/10/2024 - : Allergies Reviewed at 11/10/2024 - : Comments: Patient calling in to place a referral, identified via name and . Patient with allergies causing an asthma exacerbation. Patient with shortness of breath, wheezing, cough, post nasal drip and runny nose, sneezing, fluid filled right ear, itchy/watery eyes. Denies fever/chills, no headache or dizziness. Patient has been alternating saline and albuterol nebs, as well as Asmanex inhaler- she has taken loratidine, sudafed, benadryl, eye drops- with no relief of respiratory symptoms. Patient would like to be evaluated. Medical Certification Specialist Organization Information for Jon Lawrence Astley Clarke Business Legal Name: [employer]. Address: [address] [place] [id number], E Tailer: Raphael Schultz MD CLIA No.: [id number] Medical Certification Specialist POC Test Results from Lawrence Cameliadeandrerosalie [employer]ley [employer] Rapid COVID antigen (20:29:31) COVID: - Rapid influenza antigen (20:29:33) Flu: - iSTAT Chem8+ (20:57:41) Na: 140 mEq/L K: 3.4 mEq/L Cl: 104 mEq/L iCa: 1.25 mmol/L TCO2: 27 mmol/L Glu: 90 mg/dL BUN: 7 mg/dL Crea: 0.7 mg/dL Hct: 36 % Hb: 12.2 g/dL A mmol/L Cartridge Number: [id number] Attachments uploaded as part of this test result can be found under Documents section. ...................... ...................... ...................... ...................... ...................... ...................... ......... Medical Certification Specialist Note From Jon Lawrence: [facility] makes pt contact. She answers the door and invites [facility] inside. She smiles and greets [facility] and it is noted she has a hoarse quality to her voice and she has a hard and dry cough. She is moving her body and extremities unencumbered. She is generally well-appearing. No facial droop, slurred speech, or one-sided weakness are observed. No stridor or sonorous respirations are heard, she is not tripoding, and she is not using accessory muscles to breathe. Pt endorses a combination of her seasonal allergies and asthma for the past week w/ a worsening of her allergy symptoms and ability to breathe w/o cough. She describes feeling fluid in her ears, itchy/watery eyes, post nasal drip, cough, and laryngitis. Pt says she has been doing her nebulizer w/ albuterol 4x/day, alternating w/ nebulized saline to keep mucous loose. Pt has been taking several medications attempting to get her allergies and asthma under control including xyzal, fluticasone spray, famotidine, allergy eye drops, benadryl, sudafed, hydroxazine, and loratadine. She has been on steroids many times in the past and feels like she has tried everything except that at this point. She is denying cp, n/v/d, mccarty, fever/chills. She would like to be tested for COVID/flu as well for her peace of mind. [facility] obtains vital signs and pt is assessed. Lung sounds were clear to auscultation and HEENT exam was unremarkable. No perioral or peripheral cyanosis are observed and CMS is intact. Pt swabbed for COVID/flu and both are negative. [facility] contacts [facility] and discusses the above. [facility] orders IV access and bmp. A 20ga IV is established in the AC and blood is drawn for bmp. IV is locked and flushed w/ saline lock and secured. [facility] orders 125mg solumedrol IV and 40mEq potassium PO for pt. [facility] will prescribe a prednisone taper for pt. [facility] administers 125mg solumedrol placed in a saline flush SIVP over 5 min as well as 20mEq x2 tablets of potassium PO. IV is removed and pressure bandage is applied w/ 2x2 and coban. Pt is instructed to continue w/ her nebulized albuterol alternating w/ saline. Pt is grateful for [facility] visit. [facility] is clear. Report completed by BETITO Lawrence [id number]. [facility] Lab Orders: BMP, serum or plasma: Performed rapid SARS CoV 2 Ag, QL IA, respiratory specimen: Performed rapid flu (A+B): Performed BMP, serum or plasma: Performed [facility] Medication Orders: methylprednisolone sod succ (PF) 125 mg/2 mL solution for injection: Administered potassium chloride ER 20 mEq tablet,extended release: Administered ...................... ...................... ...................... ...................... ...................... ...................... ......... [facility] Consulted: Allie Arechiga ...................... ...................... ...................... ...................... ...................... ...................... ......... Disposition: Valeriano ALLIE ARECHIGA MD [address] [facility],[address], [place], [phone], [employer] 11/10/2024 21:51:23 11/16/2024 text/html CRC Nurse Triage Notes (Tessa Grayson): Reason For Request: pt has had a migraine for over 24 hours with no relief, visual disturbances along with diarhea Patient Reports: Head pain not relieved by medication greater than 8 hours; Head pain greater than 8 hours -unrelated to falls or injury; Head pain with nausea vomiting; Dizziness with positional change; Sensitive to light Denies: Worst Headache of life New onset of vision loss Sudden onset -unilateral weakness/gait disturbance Fall with head strike and altered LOC New onset of Slurred speech or difficulty finding words Sudden Mental status changes Head pain with fever chills and neck pain Seizure activity Chief Complaints: Headache PMH: COPD/Asthma, Chronic Back Pain, Depression, Obesity, Migraine, Other PMH Reviewed at 11/16/2024:57 Allergies Reviewed at 11/16/2024:57 Comments: 49 y.o female complains of Headache She has a h/o migraines, that started at 4 am, she took motrin, fiorcet, tylenol. The pain is not breaking. She is having sensitivity to light. She had nausea yesterday, no vomiting. She did have GI upset. She has had the same symptoms when she had COVID> She was tested last week and was negative at the time. She no longer hs a cough, but she is on steroids. She is not blood thinners, no CKD PMH INSOMNIA I provided information on the mobile health provider response time and advised the patient and/or caregiver to monitor reported signs and symptoms. I discussed the warning signs of when to seek emergency care. ...................... ...................... ...................... ...................... ...................... ...................... ......... Medical Certification Specialist Note From David Sumner: Patient alert and oriented complaints of migraine pain, photophobia, nausea times 36 hours. Patient reports using ibuprofen yesterday, Tylenol, fioricet today without relief of headache. Patient reports she was on prednisone until six days ago for respiratory, denies respiratory complaint. Patient pink warm dry secondary exam unremarkable. Lung sounds clear negative increased work of breathing positive full sentences abdomen soft non tender extremities unremarkable. Good skin, TURGOR. [facility] orders Toradol and Zofran, administered as ordered without complication, using five rights. Advised to follow up with PCP if needed, red flags, patient education discussed. [facility] Medication Orders: ketorolac 30 mg/mL injection solution: Administered ondansetron 4 mg disintegrating tablet: Administered ...................... ...................... ...................... ...................... ...................... ...................... ......... [facility] Consulted: Delia Jean-Baptiste ...................... ...................... ...................... ...................... ...................... ...................... ......... Disposition: Fulfilled Delia Jean-Baptiste MD [address] [facility],[address], [place], [phone], [employer] 11/16/2024 18:23:16 03/06/2025 text/html CRC Nurse Triage Notes (Amanda Miguel): Reason For Request: Patient had Afib last week, complex Migraine with Auras - Now for the last 20 min she is feeling anxiety and stress, and has short sharp pains. Patient Reports: Head pain not relieved by medication greater than 8 hours; Head pain greater than 8 hours -unrelated to falls or injury; Head pain with nausea vomiting; Sensitive to light Denies: Worst Headache of life New onset of vision loss Sudden onset -unilateral weakness/gait disturbance Fall with head strike and altered LOC New onset of Slurred speech or difficulty finding words Sudden Mental status changes Head pain with fever chills and neck pain Seizure activity Dizziness with positional change Chief Complaints: Headache PMH: COPD/Asthma, Chronic Back Pain, Depression, Obesity, Migraine PMH Reviewed at 03/06/2025:57 Allergies Reviewed at 03/06/2025 - :57 Comments: 49 y.o female complains of Headache 2 weeks ago on Wednesday - went to ED for migraine Zofran/Reglan/Haldol Carvedilol - AF from constant vomiting - then NSR Sarah palpitations during episode of AF but denied chest pain Wednesday - extreme pain from headache Trop elevated - felt extreme chest pressure Saw IP neurologist Admitted - NSR for whole hospitalization - recommending outpatient neuro and cards consults; still awaiting appointments for both Continuous migraine since, mildly better today Past hour - intermittent bursts of chest pain Zofran q.6h - 4mg; prescribed by PCP prior to hospitalizations Denies vision changes, +photosensitivity Alert and oriented, speech clear on phone, accurate historian; Denies numbness/tingling to extremities, denies unilateral weakness Denies recent falls Reports taking 50-100mg seroquel for insomnia nightly Started on reyvow for migraines -PO Requesting visit for EKG before agreeable to ED; wants to rule out anxiety. RED flags reviewed. I provided information on the mobile health provider response time and advised the patient and/or caregiver to monitor reported signs and symptoms. I discussed the warning signs of when to seek emergency care. EKG (21:19:23) - This test has been updated by the appointment coordinator, Bryanna Esquivel at (03/06/2025 22:31:41). The changes are marked in bold. EKG test performed. Attachments uploaded as part of this test result can be found under Documents section. EKG (21:40:00) - This test has been updated by the appointment coordinator, Bryanna Esquivel at (03/06/2025 22:31:41). The changes are marked in bold. EKG test performed. Attachments uploaded as part of this test result can be found under Documents section. ...................... ...................... ...................... ...................... ...................... ...................... ......... Medical Certification Specialist Note From Bryanna Esquivel: Sent to a call for a pt complaining of a headache. [facility] arrives on scene, pt is alert and oriented, airway is patent. Pt complains of complex migraine w/auras since 02/23. Pt was evaluated/treated at [facility] ED and discharged. Pt complains of mccarty, intermittent dizziness with intermittent blurry vision, nausea, and back pain/tightness since 02/23. Pt was admitted into [facility] from 02/28-03/03 for migraine and hypertension. Pt states she had elevated troponin and A-fib in ED. Pt complains of sob (feeling like she can't catch her breath) x 3 days, and left sharp stabbing chest pain radiating to tightness in left upper arm starting this evening at rest. Pt denies, double vision, vomiting, diarrhea, abd pain, black/bloody stool, and fever. Pt has been taking a mixture of Ketorolac, Tylenol, Tizanidine, Fioricet, Zofran, and Famotidine. (sitting) BP:122/79, P:65, RR:18, SpO2:99% RA, T:98.0; (standing) BP:121/83, P:69; Head: unremarkable; Lung sounds: clear bilaterally; Abdomen: soft, non-tender, no distention; Back: unremarkable; Extremities: unremarkable; Skin: pink, warm, dry; 12 lead ECG: abnormal; [facility] consulted and orders Baby ASA 324mg PO. Pt is advised she needs to be transported to ED. Pt is resistant at first, but agrees to transport to [facility] ED. 5 med rights reviewed; ASA 324mg PO administered; 911 called; Pt care transferred to [facility]. ...................... ...................... ...................... ...................... ...................... ...................... ......... [facility] Consulted: Elena Odom ...................... ...................... ...................... ...................... ...................... ...................... ......... Disposition: Fulfilled Elena Odom MD [address] [facility],[address], [place], [phone], [facility] [employer] [facility] 03/06/2025 23:50:26 03/09/2025 text/html CRC Nurse Triage Notes (Alex Rueda): Reason For Request: *Pt was seen on 03/06/25 by [facility] reporting having some intermittent chest stabbing (little jabs at her heart)>started the day before, was sent to the ER where she was cleared>notes she is starting to feel the same> Patient Reports: Active Chest pain, radiates to neck jaw and or arm; Shortness of Breath Denies: History of Heart Attack, in the setting of active chest pain Diaphoretic/Sweating Describes as c rushing Sudden onset of nausea/Vomiting and shortness of breath. Unable to speak in full sentences without distress Chief Complaints: Chest Pain PMH: COPD/Asthma, Chronic Back Pain, Depression, Obesity, Migraine PMH Reviewed at 03/09/2025 - 12:54 Allergies Reviewed at 03/09/2025 - 12:54 Comments: Pt reports feeling unwell with chest pain x 20 minutes ago - Concerns expressed - Pt declines ER treatment Jabbing at my heart with chest tightness/pressure - 09/25 - Nausea - I have to keep trying to catch my breath -Neck, Jaw and arm pain - with nausea - Post Anesthesia Room Nurse reviewed On license of [facility] visit from 03/06. Reports taking a Aspirin service called for SOB found 49 dylan with hx major depression HL IBS c/o 2-3d worsening sharp chest pain rad L arm starting this evening, assoc SOB VS af 122/79 65 18 99%RA EKG: sinus, ST elevations leads I,II, avf with lessor ST elev V1,2,3 #STEMI refer ED ASA 325mg ST elevation myocardial infarction (STEMI), unspecified artery Checked electrocardiogram Start aspirin 81 mg chewable tablet 4 tablets every day Medical Certification Specialist Organization Information for ReyesChon Astley [employer] Business Legal Name: [employer] Address: [address] [place] [address], PHONG Gutierrez [address], E Tailer: Terry GEE No.: [id number] Medical Certification Specialist POC Test Results from Chon Reyes - ALS EKG (15:22:55) EKG test performed. Attachments uploaded as part of this test result can be found under Documents section. EKG (15:22:55) - This test has been updated by the appointment coordinator, Chon Reyes at (03/09/2025 17:04:10). The changes are marked in bold. EKG test performed. Attachments uploaded as part of this test result can be found under Documents section. ...................... ...................... ...................... ...................... ...................... ...................... ......... Medical Certification Specialist Note From Chon Reyes: Pt chief complaint today of intermittent left sided chest pain, migraine headache as well as nausea. Pt states that all signs and symptoms have been occurring for the past 1 week prior to [facility] arrival on scene however this newest bout has been occurring of approx 48 hours. Pt expressed she was seen by [facility] provider on 03/07/2025 for very similar symptoms. Pt is noted to have ST elevation and was sent to [facility]. Pt notes that while at [facility] she was discharged and sought treatment at [facility] where she was given keetorlac and discharged. Pt has since than remained at home with this intermittent pain. Pt calls today due to the pain persisting and now her migraine is rated at an 8/10 level. Pt today would appreciate a general assessment, 12 lead ekg, treatment and advice if she should be seen at a center of higher care. Pt currently denies vomiting, diarrhea, dizziness or changes in vision. Nonneural focal exam, afebrile, pt is able to ambulate throughout her home with little assistance from person. Pt vitals are noted to be WNL for the baseline of the pt. Lungs present as clear bilaterally upon auscultation. Benign abdominal assessment. No new or worsening lower extremity edema noted. 12 lead acquired which clearly shows st elevation in leads 1-2 as well as v1 and v2 with appropriate reciprocations throughout. 324 mg of aspirin is provided and [facility] Elena Odom is informed of findings as well as decision to enlist EMS for a response. 20 gauge iv placed in right ac. [facility] bls crew 213 arrive on scene Pt is packaged onto unit [address] [facility] without complication. Pt transported to [facility] with [facility] provider on board. Pt is given 1 liter of NS as well as 4 mg of iv zofran for nausea control. Pt continually monitored for changes in condition, additional 12 lead ecg taken throughout. Upon arrival at destination to is transferred to room 25 with a stand and pivot technique. Full report is given to charge nurse on to condition. Transfer of care completed. [facility] provider driven back to initial scene and finish report. [facility] Lab Orders: electrocardiogram: Performed [facility] Medication Orders: aspirin 81 mg chewable tablet: Performed ondansetron HCl (PF) 4 mg/2 mL injection solution: Performed sodium chloride 0.9 % intravenous solution: Performed ...................... ...................... ...................... ...................... ...................... ...................... ......... [facility] Consulted: Elena Odom ...................... ...................... ...................... ...................... ...................... ...................... ......... Disposition: Fulfilled Elena Odom MD [address] [facility],[address], [place], [address], [employer]CHANCE PEREZ 03/09/2025 21:04:25 OBGyn Episode No OBEpisode recorded.
--- OUTSIDE RECORDS SUMMARY | 2025-06-28 22:42 | XMS_ITS | Clinical Summary ---
Author Organization [facility] Address [address] [place] [address] Phone Care Team Providers Care Manager Advanced Name Role Phone Colin Summers MD Primary Care Provider [phone] Allergies Active Allergy Reactions Criticality Noted Date [...] Active butalbital-acet aminophen-caffe ine-codeine (FIORICET WITH CODEINE) [id number] mg Cap Take by mouth every 4 [...] HEPATITIS C SCREENING 10/28/1993 HIV ONE-TIME SCREENING (18-65 YEARS) 10/28/1993 PAP SMEAR 10/28/1996 MAMMOGRAM 2015 COLOGUARD 10/28/2020 COLONOSCOPY 10/28/2020 COLORECTAL CANCER SCREENING 10/28/2020 FIT TEST 10/28/2020 FOBT 10/28/2020 SIGMOIDOSCOPY 10/28/2020 VIRTUAL COLONOSCOPY 10/28/2020 INFLUENZA VACCINE (#1) 2025 , 03/21/2019, 03/23/2018, Additional history exists COVID-19 VACCINE ( season) 2025 12/04/2020, 11/13/2020 Adult Td,Tdap Booster 04/09/2030 04/09/2020 , 01/15/2019, 12/30/2009 HEPATITIS A VACCINES Aged Out 12/30/2009 No long er eligible based on patient's age to complete this topic PNEUMOCOCCAL VACCINES (0-49 years) Aged Out 12/22/2017, 07/07/2016 No longer eligibl e based on patient's age to complete this topic SMOKING STATUS SCREENING (Once After 26 Yrs) Completed 09/17/2021 HIB VACCINES Aged Out No longer eligi ble based on patient's age to complete this topic MENINGOCOCCAL VACCINES (ACWY) Aged Out No longer eligible based on patient's age to complete this topic MENINGOCOCCAL VACCINES (B) Aged Out N o longer eligible based on patient's age to complete this topic Medical Devices Not on file Insurance [place] & B [facility] ONE [place] [address] [place] & B [facility] ONE CARE MEDICARE REPLACEMENT MEDICARE PART A & B [facility] CARE MEDICARE REPLACEMENT [place] & B [facility] ONE CARE MEDICARE REPLACEMENT [place] & B [facility] ONE CARE MEDICARE REPLACEMENT [address] [place], [place] [address]HEALTH MEDICARE PART A & B [facility] CARE MEDICARE [place] [address] [place] [address] MEDICARE PART A & B Member Subscriber Plan / Payer (Ef fective 2016-Present) Name:Lalitha Beyer Member ID:[id number] Relation to Subscriber:Self Name:Lalitha Beyer Subscriber ID:[id number] Payer ID:[id number] Group ID:Not on file Type:Medicare Address: [facility] [address] [place] [address] [facility] CARE [facility] ONE CARE MEDICARE REPLACEMENT [place] A & B [facility] ONE CARE MEDICARE REPLACEMENT Care Teams Manager Advanced Relationship Specialty Start Date End Date Colin Summers MD [facility] [place] [address] PCP - General Internal Medicine 08/20/21 Additional Source Comments The information contained in this document represents components of the legal health record. It is not the complete legal health record.[facility]
--- OUTSIDE RECORDS SUMMARY | 2025-06-28 22:42 | XMS_ITS | Data Portability ---
Author Organization [place] - [facility], Allergy Address [address] [place] [address] Care Team Providers Care Aerial Photographer Name Role Phone DIONNE MILLS Primary Care Provider Assessment Encounter Date Assessment Date Assessment LastModified by Organization Details LastModified Time 09/18/2024 09/18/2024 48-year-old female presents for evaluation of lesion on the tongue. 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 We discussed in office removal of the lesion. Patient reports she is anxious and we discussed pretreatment with Ativan. Patient requested referral to an oral surgeon as she would prefer in office sedation. Referral placed. She may follow up with our office as needed. doris Not available 09/18/2024 14:46:18 Plan of Treatment Reminders Order Date Submit Date Provider Last Modified By Organization Details Last Modified Time Details Appointments None recorded. Lab None recorded. Referral oral & maxillofaci al surgeon referral 2024 025 [email or web address] [facility], [address] [facility], [place], [address], 14:52:09 Procedures None recorded. Surgeries None recorded. Imaging None recorded. Medication Orders None recorded. Patient TargetsNo targets recorded. Patient InstructionsNo instructions recorded. Reason for Referral Oral & Maxillofacial Surgeon Referral for Lesion of tongue Referring Physician: Yen Umanzor, Otolaryngology, Encounter Date: 09/18/2024 Problems Name Problem SNOMED Code Status Onset Date Resolution Date Notes Provider Name and Address Organization Details Recorded Time Lesion of tongue [id number] Active 025 YEN UMANZOR PA-C [address] [place] [address], [place], [address] , [facility] - [facility] 09/18/2024 14:40:46 Problem Notes None recorded. Medical Equipment None Reported. Medications Name Sig Start Date Stop Date Status Note LastModified by Organization Details LastModified Time quetiapine 25 mg tablet TAKE 1 TO 2 TABLETS BY MOUTH EVERY NIGHT NEEDED active Not Available Not Available No t Available albuterol sulfate 2.5 mg/3 mL (0.083 %) solution for nebulization USE 1 VIAL INHALATION VIA NEBULIZER EVERY 6 HOURS NEEDED FOR WHEEZING active Not Available Not Available No t Available azithromycin 250 mg tablet TAKE 1 TABLET (250 [...] 2 TABLETS BY MOUTH EVERY DAY FOR 4 DAYS active Not Available Not Available No t Available betamethason e, augmented 0.05 % topical cream APPLY TOPICALLY TWICE A DAY FOR 14 DAYS TO AFFECTED AREA active Not Available Not Available No t Available phentermine 15 mg capsule TAKE 1 CAPSULE BY MOUTH EVERY DAY IN THE MORNING active Not Available Not Available No t Available fexofenadine 180 mg tablet TAKE 1 TABLET BY MOUTH TWICE A DAY active Not Available Not Available No t Available valacyclovir 500 mg tablet TAKE 1 TABLET BY MOUTH EVERY DAY active Not Available Not Available No t Available butalbital-a cetaminophen -caffeine 50 mg-325 mg-40 mg tablet PLEASE SEE ATTACHED FOR DETAILED DIRECTIONS active Not Available Not Available N ot Available amoxicillin 875 mg tablet TAKE 1 TABLET BY MOUTH EVERY DAY FOR 10 DAYS active Not Available Not Available No t Available temazepam 30 mg capsule TAKE 1 CAPSULE BY MOUTH EVERY NIGHT active Not Available Not Available No t Available acyclovir 5 % topical ointment active Not Available Not Available Not Available nystatin 100,000 unit/gram topical cream APPLY THIN LAYER UNDER BREAST FOLDS TOPICALLY TWICE A DAY FOR 7 DAYS active Not Available Not Available N ot Available omeprazole 20 mg capsule,joi yed release TAKE 1 CAPSULE BY MOUTH DAILY FOR 360 DAYS. active Not Available Not Available No t Available estradiol 0.5 mg tablet TAKE 1 TABLET BY MOUTH EVERY DAY active Not Available Not Available No t Available nystatin 100,000 unit/gram topical powder APPLY 1 APPLICATION TOPICALLY 2 TIMES A DAY,X21 DAYS active Not Available Not Available No t Available ibuprofen 600 mg tablet TAKE 1 TABLET BY MOUTH 3 TIMES A DAY NEEDED FOR MODERATE PAIN active Not Available Not Available No t Available estradiol 0.01% (0.1 mg/gram) vaginal cream INSERT 1 GRAM VAGINALLY AT BED TIME WEDNESDAY,, WEDNESDAY FOR MAINTENANCE . active Not Available Not Available No t Available ketoconazole 2 % topical cream APPLY TO AFFECTED AREA TWICE A DAY FOR 14 DAYS active Not Available Not Available No t Available fluticasone propionate 50 mcg/actuatio n nasal spray,suspen alfredo USE 1 SPRAY IN EACH NOSTRIL TWICE A DAY active Not Available Not Available Not Available diazepam 5 mg tablet TAKE 1 TABLET BY MOUTH 1 HOUR PRIOR TO PROCEDURE. MAY REPEAT X 1 ON ARRIVAL TO [facility] IF NEEDED. active Not Available Not Available No t Available Ventolin HFA 90 mcg/actuatio n aerosol inhaler INHALE 2 PUFFS INTO LUNGS EVERY 4 HOURS NEEDED FOR WHEEZING/SH ORTNESS OF BREATH active Not Available Not Available No t Available bupropion HCl XL 150 mg 24 hr tablet, extended release TAKE 3 TABLETS BY MOUTH DAILY active Not Available Not Available Not Available Pain Relief Extra Strength (acetaminoph en) 500 mg tablet TAKE 2 TABLETS BY MOUTH 4 TIMES A DAY FOR 7 DAYS FOR PAIN active Not Available Not Available No t Available levocetirizi ne 5 mg tablet TAKE 1 TABLET BY MOUTH EVERY EVENING active Not Available Not Available No t Available Asmanex HFA 100 mcg/actuatio n aerosol inhaler INHALE 2 PUFFS BY MOUTH 2 TIMES A DAY,INSTR:R INSE MOUTH AND THROAT AFTER USE active Not Available Not Available No t Available Wegovy 0.25 mg/0.5 mL subcutaneous pen injector INJECT0.25 MG SUBCUTANEOU SLY EVERY WEEK IN THE ABDOMEN, THIGH, OR UPPER ARM FOR 4 WEEKS active Not Available Not Available Not Available Paxlovid 300 mg (150 mg x 2)-100 mg tablets in a dose pack TAKE 3 TABLETS BY MOUTH TWICE A DAY FOR 5 DAYS active Not Available Not Available No t Available Zepbound 5 mg/0.5 mL subcutaneous pen injector INJECT 1 PEN SUBCUTANEOU S INJECTION EVERY WEEK. ROTATE INJECTION SITES active Not Available Not Available No t Available Zepbound 2.5 mg/0.5 mL subcutaneous pen injector INJECT 2.5 MGS SUBCUTANEOU S EVERY WEEK, ROTATE INJECTION SITES active Not Available Not Available No t Available Vitals Date Recorded Body height Body mass index (BMI) Body weight Provider Name and Address Organization Details Last Updated DateTime 09/18/2024 152.4 cm 33.2 kg/m2 83902.7 g Zhanna Greenfield [place] - [facility] 09/18/2024 13:31:21 Social History None recorded. Functional Status None recorded. Mental Status None recorded. Family History Nothing Reported. Medical History No medical history recorded. Gynecological HistoryNo gynecological history recorded. Obstetrics History GPAL:G 0 P 0 0 0 0 Past Encounters Encounter ID Performer Location Encounter Start Date Encounter Closed Date Diagnosis/Indication Diagnosis SNOMED-CT Code Diagnosis ICD10 Code Diagnosis IMO Codes Diagnosis Note [id number] YEN UMANZOR PA-C [facility] [address] [address] 09/18/2024 13:17:39 09/18/2024 14:31:49 Lesion of tongue 999072632 K14.8 Health Concerns Section Related Observation LastModified by Organization Detai ls LastModified Time None Recorded Concern Status LastModified by Organization Details LastModified Time None Recorded Advance Directives Directive None Recorded Payers Insurance Date Sequence Insurance Name Policy Number Policy Ledesma Covered Member ID Ledesma Member ID Guarantor Name 09/12/2024 1 [facility] - PRO CLAIM PLUS (PPO) Lalitha Beyer [id number] Lalitha Beyer 09/06/2024 1 [facility] - DOS ON OR AFTER 2022 - MEDICARE [place]VANTAGE [place]MEDICARE REPLACEMENT/ADV ANTAGE - PPO) Lalitha Beyer [id number] Lalitha Beyer 12/01/2024 1 [facility] - DOS ON OR AFTER 2022 - ONE CARE (MEDICARE REPLACEMENT/ADV ANTAGE - HMO) Lalitha Beyer [id number] Lalitha Beyer Notes Date Note Type Note Provider Name and Address Organization Details Recorded Time 09/18/2024 text/html ROS as noted in the HPI 48-year-old female presents for evaluation of lesion on the tongue. She reports for about 2.5 years, she has noticed a painful growth on her left tongue that increases in size with trauma. She has had her teeth grinded down as this was irritating the area of her tongue. Denies sore throat, dysphagia, hemoptysis, night sweats, and fevers. Former smoker quit over 21 years ago. LAUREN ADAMS MD [address] [place] [address], [place], [address], [place] - [facility] 09/18/2024 17:24:30 OBGyn Episode No OBEpisode recorded.
--- OUTSIDE RECORDS SUMMARY | 2025-06-28 22:43 | XMS_ITS | Encounter Summary ---
Author Organization [facility] Address [address] [facility] [address] [place] [address] Encounters * CPT with Medical instED at [employer] on 2025-03-09 { reasonForRequest : *Pt was seen on 03/06/25 by instED\nPt reporting having some intermittent chest stabbing (little jabs at her heart)>started the day before, was sent to the ER where she was cleared>notes she is starting to feel the same> , patientReports : Active Chest pain, radiates to neck jaw and or arm; Shortnes s of Breath , denies :[ History of Heart Attack, in the setting of active chest pain , Diaphoretic/Sweating , Describes as crushing , Sudden onset of nausea/Vomiting and shortness of breath. , Unable to speak in full sentences without distress ], chiefComplaints : Chest Pain , pmh : COPD/Asthma, Chronic Back Pain, Depression, Obesity, Migraine , allergies : Ciprofloxacin, Bacitracin, Maalox Maximum Strength, Dilantin, Duoneb, Sumatriptan, Topamax , otherAllerg ies :null, painAssessment : , visitOutcome : , additionalComments : Pt reports feeling unwell with chest pain x 20 minutes ago - Concernsexpressed - Pt declines ER treatment\n\n\ Jabbing at my heart\ with chest tightness/pressure - 09/25 - Nausea - I have to keep trying to catch my breath -Neck, Jaw and arm pain - with nausea - Peer Counselor reviewed [facility] visit from 03/06. Reports taking a Aspirin \n\nservice called for SOB\nfound 49 dylan with hx\nmajor depression\nHL\nIBS\nc/o 2-3d worsening sharp chest pain rad L arm startingthis evening, assoc SOB\n\nVS af 122/79 65 18 99%RA\nEKG: sinus, ST elevations leads I,II, avf withlessor ST elev V1,2,3\n\n#STEMI\nrefer ED\nASA 325mg\nST elevation myocardial infarction (STEMI), unspecified artery\nChecked electrocardiogram\nStart aspirin 81 mg chewable tablet 4 tablets every day } Pt chief complaint today of intermittent left sided chest pain, migraine headache as well as nausea. Pt states that all signs and symptoms have been occurring for the past 1 week prior to [facility] arrivalon scene however this newest bout has been occurring of approx 48 hours. Pt expressed she was seen by [facility] provider on 03/07/2025 for very similar symptoms. Pt is noted to have ST elevation and was sent to [facility]. Pt notes that while at [facility] she was discharged and sought treatment at [facility] where she was given keetorlac [...] 324 mg of aspirin is provided and [facility] Elena Odom is informed of findings as well as decision to enlist EMS for a response. 20 gauge iv placed in right ac. [facility] bls crew 213 arrive on scene Pt is packaged onto unit 213 of [facility] without complication. Pt transported to [facility] with [facility] provider on board. Pt is given [...] on to condition. Transfer of care completed. [facility] provider driven back to initial scene and finish report. ORAL_MEDICATION, EKG, POC_FLU_STREP, COVID_TEST Written by Medical instED on 2025-03-09
--- OUTSIDE RECORDS SUMMARY | 2025-06-28 22:43 | XMS_ITS | Encounter Summary ---
Author Organization [facility] Address [address] [place] [address] Care Team Providers Care City Routeman Name Role Phone Faye Ferrera MD Primary Care Provider + Reason for Visit * Reason Onset Date Comments provider call back 06/26/2025 Encounter Details Date Type Department Care Team (Late st Contact Info) Description 06/26/2025 Telephone [facility] [place] [address] [place] [address] Caridad Randhawa MD [address] [place] [address] Social History Tobacco Use Types Packs/Day Years [...] for your loved ones. For example, child protective services specialist or elderly care for an older adult? [...] 06/28/2025 7:49 PM Karen Naik RN * [place] Suicide Severity Rating Scale (Screener/Recent Self-Report) Question [...] Adela Bains RN documented in this encounter Progress Notes * Pily Estrella - 06/27/2025 1:08 PM EST Patient calling again because she forgot to ask Dr Randhawa when she was speaking to her about whether she can use the vibration plate, the sauna, and the radio frequencies ? Please let her know. * Avis Macedo - 06/26/2025 2:33 PM EST Endocrine Call Primary endocrine provider: Dr. Caridad Randhawa MD Is the endocrine provider in the office toady?: yes Who is calling? The patient. If not the patient or parent/guardian please check for authorization to share/verbal release. Why is the person calling? Other question/concern: Pt is calling to ask Dr Randhawa if she's able to use the sauna or vibration plate, she also is wondering if she use radio frequency therapies without effecting her thyroid. Please forward to endocrine pool (p [phone]). documented in this encounter Plan of Treatment Upcoming Encounters Date Type Department Care Team (Late st Contact Info) Description 07/04/2025 9:20 AM EST Procedure visit [facility] [place] [address] [facility] [address] [place] [phone] Mik Rueda MD [address] [place], [place] [id number] 07/16/2025 9:10 AM EST Office Visit [facility] Cardiology [facility] [address] [place] [phone] Ladonna Moura NP [address] [place] [address] [address] [place] [phone] 07/31/2025 10:40 AM EST Office Visit Endocrinology - [address] [phone] Caridad Randhawa MD [address] [place] [address] 08/14/2025 11:30 AM EST Office Visit [facility] [address] [phone] [place] Dye PA [address] [place] [phone] documented as of this encounter Visit Diagnoses Not on filedocumented in this encounter Care Teams City Routeman Relationship Specialty Start Date End Date Faye Ferrera MD [address] [place] [address] PCP - General Internal Medicine 02/24/25 documented as of this encounter
--- OUTSIDE RECORDS SUMMARY | 2025-06-28 22:43 | XMS_ITS | Encounter Summary ---
Author Organization [facility] Address [address] [place] [address] Care Team Providers Care Machine Shop Apprentice Name Role Phone Faye Ferrera MD Primary Care Provider + Encounter Details Date Type Department Care Team (Late st Contact Info) Description 06/07/2025 Results Follow-Up Internal [facility] - [facility] [address] [place] [phone] Lilia Guerrero [place] Social History Tobacco Use Types Packs/Day Years [...] your loved ones. For example, early childhood worker or elderly care for an older adult? [...] Description 07/04/2025 9:20 AM EST Procedure visit [facility] [place] [address] [facility] [address] [place] [phone] Mik Rueda MD [address] [place] [address] 07/16/2025 9:10 AM EST Office Visit [facility] Cardiology [facility] [address] [place] [phone] Ladonna Moura NP [address] [place] [address] [address] [place] [phone] 07/31/2025 10:40 AM EST Office Visit Endocrinology - [place] [address] [place] [address] Caridad Randhawa MD [address] [place] [address] 08/14/2025 11:30 AM EST Office Visit [facility] [place] [address] [facility] [address] [place] [phone] [place] Dye PA [address] [place] [address] documented as of this encounter Visit Diagnoses Not on filedocumented in this encounter Care Teams Machine Shop Apprentice Relationship Specialty Start Date End Date Faye Ferrera MD [address] [place] [address] PCP - General Internal Medicine 02/24/25 documented as of this encounter
--- OUTSIDE RECORDS SUMMARY | 2025-06-28 22:43 | XMS_ITS | Clinical Summary ---
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 [place] [phone] * (ABNORMAL) Comprehensive metabolic panel (06/28/2025 9:33 PM EST) Only the most recent of2 resultswithin the time period is included. Pathologist [facility] Sodium 141 133 - 145 mmol/L 06/28/2025 10:24 PM [facility] Potassium 4.2 3.5 - 5.5 mmol/L 06/28/2025 10:24 PM [facility] Chloride 107 96 - 110 mmol/L 06/28/2025 10:24 PM [facility] CO2 24 21 - 32 mmol/L 06/28/2025 10:24 PM [facility] Anion Gap 10 3 - 11 06/28/2025 10:24 PM [facility] Glucose 126(H) 70 - 100 mg/dL 06/28/2025 10:24 PM [facility] BUN 15 5 - 25 mg/dL 06/28/2025 10:24 PM [facility] Creatinine 0.68 0.50 - 1.10 mg/dL 06/28/2025 10:24 PM [facility] eGFR 107 >=60 mL/min/1. 73m2 06/28/2025 10:24 PM [facility] Comment:Calculation based on the Chronic Kidney Disease Epidemiology Collaboration (CKD-EPI) equation refit without adjustment for race. BUN/Creatinine Ratio 22.1 06/28/2025 10:24 PM [facility] Calcium 9.6 8.5 - 10.5 mg/dL 06/28/2025 10:24 PM [facility] AST (SGOT) 151(H) 10 - 42 unit/L 06/28/2025 10:24 PM [facility] ALT (SGPT) 186(H) 10 - 60 unit/L 06/28/2025 10:24 PM [facility] Alkaline Phosphatase 206(H) 42 - 121 unit/L 06/28/2025 10:24 PM [facility] Total Protein 7.3 6.0 - 8.0 g/dL 06/28/2025 10:24 PM EST [facility] Albumin 4.3 3.2 - 5.0 g/dL 06/28/2025 10:24 PM EST [facility] Total Bilirubin 0.2 0.0 - 1.4 mg/dL 06/28/2025 10:24 PM EST [facility] Blood Venous blood specimen / Unknown Venipuncture / Unknown 06/28/2025 9:33 PM EST 06/28/2025 9:49 PM EST Danette HAWK LAB BLOOD ORDERABLES Fin al Result [facility] [address] [place] [address], [place] [phone] * ECG 12 lead (06/28/2025 7:46 PM EST) Only the most recent of3 resultswithin the time period is included. Ventricular Rate ECG 111 BPM GEMUSE Atrial Rate 111 BPM GEMUSE P-R Interval 166 ms GEMUSE QRS Duration 90 ms GEMUSE Q-T Interval 354 ms GEMUSE QTc 481 ms GEMUSE P Wave [place] 69 degrees GEMUSE R [place] 26 degrees GEMUSE T [place] 34 degrees GEMUSE ECG Interpretation Sinus tachycardia Abnormal ECG When compared with ECG of 03-JUN-2025 22:14, No significant change was found Confirmed by Jaclyn CABELLO JOHN ([id number]) on 06/28/2025 9:45:56 PM GEMUSE 06/28/2025 7:46 PM EST 06/28/2025 9:45 PM EST Danette HAWK ECG ORDERABLES Final Re sult GEMUSE * Sedimentation rate (06/26/2025 2:40 PM EST) Sed Rate 15 0 - 20 mm/hr LAB HEMETOLOGY METHOD 06/26/2025 4:43 PM EST [facility] Blood Venous blood specimen / Unknown Venipuncture / Unknown 06/26/2025 2:40 PM EST 06/26/2025 2:40 PM EST us Caridad Randhawa MD LAB BLOOD ORDERABLES Final Result Performing Organization Address City/[facility]/ZIP Co de Phone Number [facility] [address] [place] [address], [place] [phone] * (ABNORMAL) Triiodothyronine free (06/26/2025 2:40 PM EST) Only the most recent of2 resultswithin the time period is included. T3, Free 675(H) 230 - 420 pcg/dL 06/26/2025 5:33 PM EST [facility] Blood Venous blood specimen / Unknown Venipuncture / Unknown 06/26/2025 2:40 PM EST 06/26/2025 2:40 PM EST us Caridad Randhawa MD LAB BLOOD ORDERABLES Final Result Performing Organization Address [facility] Co de Phone Number [facility] [address] [place] [address], [place] [phone] * (ABNORMAL) Thyroid stimulating hormone (06/26/2025 2:40 PM EST) Only the most recent of2 resultswithin the time period is included. TSH <0.01(L) 0.40 - 4.00 mcIU/mL 06/26/2025 5:43 PM EST [facility] Blood Venous blood specimen / Unknown Venipuncture / Unknown 06/26/2025 2:40 PM EST 06/26/2025 2:40 PM EST us Caridad Randhawa MD LAB BLOOD ORDERABLES Final Result [facility] [address] [place] [address], [place] [phone] * (ABNORMAL) Thyroxine free (06/26/2025 2:40 PM EST) Only the most recent of2 resultswithin the time period is included. Free T4 3.60(H) 0.70 - 1.80 ng/dL 06/26/2025 5:34 PM EST [facility] Blood Venous blood specimen / Unknown Venipuncture / Unknown 06/26/2025 2:40 PM EST 06/26/2025 2:40 PM EST us Caridad Randhawa MD LAB BLOOD ORDERABLES Final Result Performing Organization Address [facility] de Phone Number [facility] [address] [place] [address], * [place] Head Neck Soft Tissue (06/07/2025 11:00 AM EST) Anatomical Region Laterality Modality Head and Neck Ultrasound 06/07/2025 11:3 8 AM EST Impressions 06/07/2025 11:40 AM EST Mild enlargement of the right lobe of the thyroid gland. Otherwise, normal examination. Code 83961 [id number] -------- FINAL REPORT -------- Dictated By: Carlos Manuel Lehman Dictated Date: 06/07/2025 11:38 ET Assigned Physician: Carlos Manuel Lehman Reviewed and Electronically Signed By: Carlos Manuel Lehman Signed Date: 06/07/2025 11:40 ET Workstation ID: [id number] Transcribed By: Self Edit Transcribed Date: 06/07/2025 11:38 ET Narrative 06/07/2025 11:40 AM EST HISTORY: The patient is a 49-year-old female with thyrotoxicosis. FINDINGS: Real-time ultrasonography of the thyroid gland is performed. The right lobe is mildly enlarged, measuring 5.2 x 1.9 x 1.9 cm, while the left lobe is normal in size, measuring 3.6 x 1.5 x 1.5 cm. The isthmus measures 3.6 mm in thickness. No nodule or other focal abnormality is seen. Procedure Note Carlos Manuel Lehman MD - 06/07/2025 HISTORY: The patient is a 49-year-old female with thyrotoxicosis. FINDINGS: Real-time ultrasonography of the thyroid gland is performed. Theright lobe is mildly enlarged, measuring 5.2 x 1.9 x 1.9 cm, while theleft lobe is normal in size, measuring 3.6 x 1.5 x 1.5 cm. The isthmusmeasures 3.6 mm in thickness. No nodule or other focal abnormality isseen. IMPRESSION: Mild enlargement of the right lobe of the thyroid gland. Otherwise, normalexamination. Code 98727 G9557 -------- FINAL REPORT -------- Dictated By: Carlos Manuel Lehman Dictated Date: 06/07/2025 11:38 ET Assigned Physician: Carlos Manuel Lehman Reviewed and Electronically Signed By: Carlos Manuel Lehman Signed Date: 06/07/2025 11:40 ET Workstation ID: [id number] Transcribed By: Self Edit Transcribed Date: 06/07/2025 11:38 ET us Irina Greco NP IMG US PROCEDURES Final Result * ECG-Annotated (06/05/2025) Only the most recent of2 resultswithin the time period is included. us Provider Onbase ECG ORDERABLES Final Result * (ABNORMAL) Thyroid peroxidase and thyroglobulin antibodies (06/04/2025 4:31 AM EST) Antithyroglobulin Ab 80.0(H) <=60.0 I Unit/mL LAB CHEMISTRY METHOD 06/04/2025 9:35 AM EST [facility] Thyroid Peroxidase Ab <28.0 <=60.0 I Unit/mL LAB CHEMISTRY METHOD 06/04/2025 9:35 AM EST [facility] Blood Venous blood specimen / Unknown Venipuncture / Unknown 06/04/2025 4:31 AM EST 06/04/2025 4:49 AM EST Jeff Martinez MD LAB BLOOD ORDERABLES Final Result Performing Organization Address [facility] Co de Phone Number [facility] [address] [place] [address], * Thyroid stimulating immunoglobulin (06/04/2025 4:31 AM EST) Pathologist [facility] Thyroid Stimulating Immunoglobulin <0.10 <0.10 IU/L 06/06/2025 11:31 AM EST [facility] Comment: Thyroid stimulating immunoglobulins (TSI) concentrations greater than or equal to (>=) 0.55 IU/L have a clinical sensitivity of at least 98.6%, and a clinical specificity of at least 98.5%, for the differential diagnosis of Graves' Disease. TSI concentrations for patients with other thyroid or autoimmune diseases range from 0.11 to 0.39 IU/L. Test performed at [facility], [address] [place] [address] Beatris Camara MD, PhD - Blade Sharpener Blood Venous blood specimen / Unknown Venipuncture / Unknown 06/04/2025 4:31 AM EST 06/04/2025 4:49 AM EST Jeff Martinez MD LAB BLOOD ORDERABLES Final Result Performing Organization Address [facility]/ZIP Co de Phone Number [facility] [address] [place] [address] * (ABNORMAL) Basic metabolic panel (06/04/2025 4:31 AM EST) Pathologist [facility] Sodium 141 133 - 145 mmol/L LAB CHEMISTRY METHOD 06/04/2025 5:17 AM EST [facility] Potassium 5.2 3.5 - 5.5 mmol/L LAB CHEMISTRY METHOD 06/04/2025 5:17 AM EST [facility] Chloride 110 96 - 110 mmol/L LAB CHEMISTRY METHOD 06/04/2025 5:17 AM [facility] CO2 28 21 - 32 mmol/L LAB CHEMISTRY METHOD 06/04/2025 5:17 AM [facility] Anion Gap 3 3 - 11 LAB CHEMISTRY METHOD 06/04/2025 5:17 AM [facility] Glucose 109(H) 70 - 100 mg/dL LAB CHEMISTRY METHOD 06/04/2025 5:17 AM [facility] BUN 16 5 - 25 mg/dL LAB CHEMISTRY METHOD 06/04/2025 5:17 AM [facility] Creatinine 0.45(L) 0.50 - 1.10 mg/dL LAB CHEMISTRY METHOD 06/04/2025 5:17 AM [facility] eGFR 118 >=60 mL/min/1. 73m2 LAB CHEMISTRY METHOD 06/04/2025 5:17 AM [facility] Comment:Calculation based on the Chronic Kidney Disease Epidemiology Collaboration (CKD-EPI) equation refit without adjustment for race. BUN/Creatinine Ratio 35.6 LAB CHEMISTRY METHOD 06/04/2025 5:17 AM [facility] Calcium 9.6 8.5 - 10.5 mg/dL LAB CHEMISTRY METHOD 06/04/2025 5:17 AM [facility] Blood Venous blood specimen / Unknown Venipuncture / Unknown 06/04/2025 4:31 AM EST 06/04/2025 4:49 AM EST us Jeff Martinez MD LAB BLOOD ORDERABLES Final Result [facility] [address] [place] [address], * (ABNORMAL) Urinalysis with reflex microscopic (06/04/2025 4:05 AM EST) Specific [place] Urine 1.011 1.003 - 1.030 LAB URINALYSIS - AUTOMATED METHOD 06/04/2025 5:25 AM [facility] pH, Urine 5.5 5.0 - 8.0 pH LAB URINALYSIS - AUTOMATED METHOD 06/04/2025 5:25 AM [facility] Leukocytes, Urine Trace(A) Negative LAB URINALYSIS - AUTOMATED METHOD 06/04/2025 5:25 AM [facility] Nitrite, Urine Negative Negative LAB URINALYSIS - AUTOMATED METHOD 06/04/2025 5:25 AM [facility] Protein, Urine Negative <=Trace mg/dL LAB URINALYSIS - AUTOMATED METHOD 06/04/2025 5:25 AM [facility] Glucose, Urine Negative Negative mg/dL LAB URINALYSIS - AUTOMATED METHOD 06/04/2025 5:25 AM [facility] Ketones, Urine Negative Negative mg/dL LAB URINALYSIS - AUTOMATED METHOD 06/04/2025 5:25 AM [facility] Urobilinogen, Urine 0.2 0.2 - 1.0 mg/dL LAB URINALYSIS - AUTOMATED METHOD 06/04/2025 5:25 AM [facility] Bilirubin, Urine Negative Negative LAB URINALYSIS - AUTOMATED METHOD 06/04/2025 5:25 AM [facility] Blood, Urine Negative Negative LAB URINALYSIS - AUTOMATED METHOD 06/04/2025 5:25 AM [facility] RBC, Urine 10(H) 0 - 4 /HPF 06/04/2025 5:25 AM [facility] WBC, Urine 4 0 - 4 /HPF 06/04/2025 5:25 AM [facility] Squamous Epithelial, Urine 10 0 - 60 /LPF 06/04/2025 5:25 AM [facility] Bacteria, Urine Negative Negative /HPF 06/04/2025 5:25 AM [facility] Hyaline Casts, Urine 3 0 - 3 /LPF 06/04/2025 5:25 AM [facility] Urine Urine specimen obtained by clean catch procedure / Unknown Non-blood Collection / Unknown 06/04/2025 4:05 AM EST 06/04/2025 4:51 AM EST us Adrián HAWK LAB URINE ORDERABLES Final Result [facility] [address] [place] [address], * (ABNORMAL) Drug abuse screen 8a panel, urine (06/04/2025 4:05 AM EST) Amphetamine Screen, Ur Negative Negative LAB CHEMISTRY METHOD 5 6:07 AM [facility] Comment:Certain OTC medicati ons containing ephedrine, phenylephrine, pseudoephedrine and phenylpropanolamine can cause false positive results. Barbiturate Screen, Ur Negative Negative LAB CHEMISTRY METHOD 5 6:07 AM [facility] Benzodiazepine Screen, Ur Positive(A ) Negative LAB CHEMISTRY METHOD 5 6:07 AM [facility] Cocaine Screen, Ur Negative Negative LAB CHEMISTRY METHOD 5 6:07 AM [facility] Opiate Screen, Ur Negative Negative LAB CHEMISTRY METHOD 5 6:07 AM [facility] Cannabinoid (THC) Screen, Ur Negative Negative LAB CHEMISTRY METHOD 5 6:07 AM [facility] Comment:Specimens from patie nts taking pantoprazole sodium (Protonix) have been shown to produce false positive results. Oxycodone Screen, Ur Negative Negative LAB CHEMISTRY METHOD 5 6:07 AM [facility] Fentanyl, Ur Positive(A ) Negative LAB CHEMISTRY METHOD 5 6:07 AM [facility] Urine Urine specimen obtained by clean catch procedure / Unknown Non-blood Collection / Unknown 06/04/2025 4:05 AM EST 06/04/2025 4:51 AM EST Narrative [facility] - 06/04/2025 6:07 AM EST Assay cutoffs: Amphetamines 1000 ng/mL Barbiturates 200 ng/mL Benzodiazepines 200 ng/mL Cocaine 300 ng/mL Fentanyl 1 ng/mL Opiates 300 ng/mL Oxycodone 100 ng/mL THC 50 ng/mL Semi-quantitative assay for screening purposes only. Unconfirmed screening result should not be used for non-medical purposes. *ALTERNATE METHOD CONFIRMATION DONE UPON REQUEST ONLY* us Adrián HAWK LAB URINE ORDERABLES Final Result [facility] [address] [place] [address], * XR Chest 2 Views (06/03/2025 9:20 PM EST) Anatomical Region Laterality Modality Body Radiographic Trang ging 06/04/2025 8:22 AM EST Impressions 06/04/2025 8:23 AM EST Normal examination. No change since the prior study performed 03/18/2025. Code 20518 -------- FINAL REPORT -------- Dictated By: Carlos Manuel Lehman Dictated Date: 06/04/2025 08:22 ET Assigned Physician: Carlos Manuel Lehman Reviewed and Electronically Signed By: Carlos Manuel Lehman Signed Date: 06/04/2025 08:23 ET Workstation ID: [id number] Transcribed By: Self Edit Transcribed Date: 06/04/2025 08:22 ET Narrative 06/04/2025 8:23 AM EST HISTORY: The patient is a 49-year-old female with asthma, presenting with chest pain and palpitations. FINDINGS: PA and lateral radiographs of the chest demonstrate normal appearance of the bony structures. The cardiac and mediastinal contours are within normal limits. The lungs and costophrenic angles are clear. Procedure Note Carlos Manuel Lehman MD - 06/04/2025 HISTORY: The patient is a 49-year-old female with asthma, presenting withchest pain and palpitations. FINDINGS: PA and lateral radiographs of the chest demonstrate normalappearance of the bony structures. The cardiac and mediastinal contoursare within normal limits. The lungs and costophrenic angles are clear. IMPRESSION: Normal examination. No change since the prior study performed 03/18/2025. Code 29071 -------- FINAL REPORT -------- Dictated By: Carlos Manuel Lehman Dictated Date: 06/04/2025 08:22 ET Assigned Physician: Carlos Manuel Lehman Reviewed and Electronically Signed By: Calros Manuel Lehman Signed Date: 06/04/2025 08:23 ET Workstation ID: [id number] Transcribed By: Self Edit Transcribed Date: 06/04/2025 08:22 ET Liam Sanchez MD IMG XR PROCEDURES Final Res ult * hCG, serum, qualitative (06/03/2025 9:14 PM EST) hCG Qual Negative Negative 06/03/2025 9:48 PM EST [facility] Blood Venous blood specimen / Unknown Venipuncture / Unknown 06/03/2025 9:14 PM EST 06/03/2025 9:20 PM EST Adrián HAWK LAB BLOOD ORDERABLES Final Result [facility] [address] [place] [address], * APTT (06/03/2025 9:10 PM EST) aPTT 35.3 24.1 - 39.3 sec LAB COAGULATION METHOD 06/03/2025 9:36 PM EST [facility] Blood Venous blood specimen / Unknown Venipuncture / Unknown 06/03/2025 9:10 PM EST 06/03/2025 9:20 PM EST Adrián HAWK LAB BLOOD ORDERABLES Final Result Performing Organization Address City/[facility]/ZIP Co de Phone Number [facility] [address] [place] [address], [place] [phone] * Protime-INR (06/03/2025 9:10 PM EST) [facility] Protime 11.1 10.6 - 13.9 sec LAB COAGULATION METHOD 06/03/2025 9:36 PM EST [facility] INR 0.9 LAB COAGULATION METHOD 06/03/2025 9:36 PM EST [facility] Blood Venous blood specimen / Unknown Venipuncture / Unknown 06/03/2025 9:10 PM EST 06/03/2025 9:20 PM EST Adrián HAWK LAB BLOOD ORDERABLES Final Result Performing Organization Address City/[facility]/ZIP Co de Phone Number [facility] [address] [place] [address], [place] [phone] * D-Dimer (Quantitative) (06/03/2025 9:10 PM EST) [facility] D-Dimer, Quant (D-DU) 208 <=230 ng/mL DDU LAB COAGULATION METHOD 06/03/2025 9:36 PM EST [facility] Blood Venous blood specimen / Unknown Venipuncture / Unknown 06/03/2025 9:10 PM EST 06/03/2025 9:20 PM EST Narrative [facility] - 06/03/2025 9:36 PM EST D-Dimer <230 ng/mL (D-Dimer units) is the threshold for exclusion of DVT/PE. D-Dimer may be elevated in: Critically ill, severely infected, trauma patients, DIC, acute CVA, acute MD, unstable angina, AF, old age, , and smoking. D-Dimer may be decreased with: Initiation of heparin therapy and oral anticoagulants. Adrián HAWK LAB BLOOD ORDERABLES Final Result Performing Organization Address [facility]/ZIP Co de Phone Number [facility] [address] [place] [address], [place] [phone] * (ABNORMAL) T3 (06/03/2025 9:10 PM EST) T3, Total 206.55(H) 60.00 - 181.00 ng/dL LAB CHEMISTRY METHOD 06/04/2025 12:51 AM EST [facility] Blood Venous blood specimen / Unknown Venipuncture / Unknown 06/03/2025 9:10 PM EST 06/03/2025 9:20 PM EST Adrián HAWK LAB BLOOD ORDERABLES Final Result Performing Organization Address [facility] Co de Phone Number [facility] [address] [place] [address], [place] [phone] * CARDIAC HOLTER MONITOR (REPORT GENERATED IN HOUSE) (04/03/2025 1:20 PM EDT) Anatomical Region Laterality Modality Cardiac Diagnost ic Narrative 04/06/2025 3:23 PM EDT [facility] DEPARTMENT [address] [place] [id number] TEL: FAX: Type of Test: 48 Hour Holter Monitor Date of Test: 04/03/2025 Ordering Provider: Citlali Cam MD Reason for Test: Paroxysmal A-fib Impression: 1: Normal Sinus Rhythm. 2: Rare PACs and one atrial pair. One PVC. 3: No significant pause, longest R-R was 1.1 second at 4:32 AM. 4: Diary not returned. Citlali Cam MD CV CARDIAC SERVICES PROCEDURES Final Result * STRESS ECHOCARDIOGRAM EXERCISE WITH CONTRAST (03/30/2025 3:27 PM EDT) Target HR 145 bpm CV PACS STRESS Baseline HR 74 bpm CV PACS STRESS Peak HR 148 bpm CV PACS STRESS Estimated workload 7.1 METS CV PACS STRESS Percent HR 87 % CV PACS STRESS Exercise/inject ion duration (min) 5 min CV PACS STRESS Exercise/inject ion duration (sec) 59 sec CV PACS STRESS Angina Index 0 CV PACS STRESS Max HR Percent 86 % CV PA CS STRESS Arreaga Treadmill Score [address] Depression (mm) 0 mm CV PACS STRESS Baseline SBP 120 mmHg CV PACS STRESS Baseline DBP 70 mmHg CV PACS STRESS Peak SBP 180 mmHg CV PACS STRESS Peak DBP 82 mmHg CV PACS STRESS Rate Pressure Product 26,640.0 mmHg*bpm CV PACS STRESS Anatomical Region Laterality Modality Ultrasound Narrative 03/30/2025 4:26 PM EDT Normal resting echo with preserved ejection fraction and no regional wall motion abnormalities. The ejection fraction is 60-65%. No obvious, significant valvular disease. The patient exercised on the treadmill on a Atif protocol for 5 minutes and 59 seconds at a workload of 7.1 METS. Patient had shortness of breath but no chest pain during the test. The baseline EKG was normal sinus rhythm and there was no ischemic EKG changes upon exercise. Post stress echocardiogram showed augmented wall thickening with reduced left ventricular cavity size. There was no regional wall motion abnormalities on post stress echo. Impression: Normal rest and stress echocardiogram without any evidence of ischemia. Normal hemodynamic response to stress. Study Details Overall the study quality was adequate. Definity contrast was given to enhance imaging. Stress Findings A Atif protocol stress test was performed. Overall, the patient's exercise capacity was below average. Total stress time was 5 min and 59 sec. The patient experienced no angina during the test. The test was stopped because the patient experienced fatigue. The patient requested the test to be stopped. The Arreaga Treadmill Score is 6. The patient's hemodynamic response was adequate for diagnosis. Blood pressure demonstrated a normal response. Heart rate demonstrated a normal response. The patient reported shortness of breath during the stress test. ECG 49-year-old female with a history of paroxysmal atrial fibrillation, recurrent chest pain, and abnormal EKG; rule out ischemia. Cardiac risk factors include obesity, family history of premature coronary disease, and previous smoking history. Baseline ECG shows sinus rhythm. There were no arrhythmias during stress. There is no ST segment changes during stress. There were no arrhythmias during recovery. The result of the stress ECG was negative for ischemia. Procedure Note Nilsa Rodriguez NP / Citlali Cam MD - 03/30/2025 Normal resting echo with preserved ejection fraction and no regional wallmotion abnormalities. The ejection fraction is 60-65%. No obvious,significant valvular disease. The patient exercised on the treadmill on a Atif protocol for 5 minutesand 59 seconds at a workload of 7.1 METS. Patient had shortness of breathbut no chest pain during the test. The baseline EKG was normal sinusrhythm and there was no ischemic EKG changes upon exercise. Post stress echocardiogram showed augmented wall thickening with reducedleft ventricular cavity size. There was no regional wall motionabnormalities on post stress echo. Impression: Normal rest and stress echocardiogram without any evidence of ischemia. Normal hemodynamic response to stress. Citlali Cam MD CV ECHO PROCEDURES Final Resul t * YARON IFA with titer and pattern (03/30/2025 1:31 PM EDT) [facility] YARON Negative Negative 04/02/2025 11:49 AM EDT [facility] Comment:YARON performed by ind irect immunofluorescence (IFA) using HEp-2 substrate. Blood Venous blood specimen / Unknown Venipuncture / Unknown 03/30/2025 1:31 PM EDT 03/30/2025 1:31 PM EDT Mik Rueda MD LAB BLOOD ORDERABLES Fin al Result [facility] [address] [place] [address], * Borrelia burgdorferi antibody (03/30/2025 1:31 PM EDT) [facility] Lyme Ab Negative Negative LAB CHEMISTRY METHOD 03/31/2025 8:01 AM EDT [facility] Comment: No laboratory evidence of infection with B. burgdorferi (Lyme disease). Negative results may occur in patients recently infected (<=14 days) with B. burgdorferi. If recent infection is suspected, repeat testing on a new sample collected in 7- 14 days is recommended. Blood Venous blood specimen / Unknown Venipuncture / Unknown 03/30/2025 1:31 PM EDT 03/30/2025 1:31 PM EDT Mik Rueda MD LAB BLOOD ORDERABLES Fin al Result Performing Organization Address City/[facility]/ZIP Co de Phone Number [facility] [address] [place] [address], * Creatinine (03/30/2025 1:31 PM EDT) Creatinine 0.82 0.50 - 1.10 mg/dL LAB CHEMISTRY METHOD 03/30/2025 6:46 PM EDT [facility] eGFR 88 >=60 mL/min/1. 73m2 LAB CHEMISTRY METHOD 03/30/2025 6:46 PM EDT [facility] Comment:Calculation based on the Chronic Kidney Disease Epidemiology Collaboration (CKD-EPI) equation refit without adjustment for race. Blood Venous blood specimen / Unknown Venipuncture / Unknown 03/30/2025 1:31 PM EDT 03/30/2025 1:31 PM EDT Mik Rueda MD LAB BLOOD ORDERABLES Fin al Result [facility] [address] [place] [address], * Vitamin D 25 hydroxy (03/30/2025 1:31 PM EDT) Vit D, 25-Hydroxy 33.4 30.0 - 80.0 ng/mL LAB CHEMISTRY METHOD 03/30/2025 7:17 PM EDT [facility] Blood Venous blood specimen / Unknown Venipuncture / Unknown 03/30/2025 1:31 PM EDT 03/30/2025 1:31 PM EDT us Mik Rueda MD LAB BLOOD ORDERABLES Fin al Result Performing Organization Address City/[facility]/ZIP Co de Phone Number [facility] [address] [place] [address], [place] [phone] * BUN (03/30/2025 1:31 PM EDT) BUN 13 5 - 25 mg/dL LAB CHEMISTRY METHOD 03/30/2025 6:46 PM EDT [facility] Blood Venous blood specimen / Unknown Venipuncture / Unknown 03/30/2025 1:31 PM EDT 03/30/2025 1:31 PM EDT us Mik Rueda MD LAB BLOOD ORDERABLES Fin al Result Performing Organization Address [facility] Co de Phone Number [facility] [address] [place] [address], * (ABNORMAL) Folate (03/30/2025 1:31 PM EDT) Folate >20.0(H) 2.8 - 17.0 ng/ml LAB CHEMISTRY METHOD 03/30/2025 7:10 PM EDT [facility] Blood Venous blood specimen / Unknown Venipuncture / Unknown 03/30/2025 1:31 PM EDT 03/30/2025 1:31 PM EDT us Mik Rueda MD LAB BLOOD ORDERABLES Fin al Result Performing Organization Address City/[facility]/ZIP Co de Phone Number [facility] [address] [place] [address], [place] [phone] * (ABNORMAL) Vitamin B12 (03/30/2025 1:31 PM EDT) [facility] Vitamin B-12 1,206(H) 250 - 900 pcg/mL LAB CHEMISTRY METHOD 03/30/2025 7:10 PM EDT [facility] Blood Venous blood specimen / Unknown Venipuncture / Unknown 03/30/2025 1:31 PM EDT 03/30/2025 1:31 PM EDT Mik Rueda MD LAB BLOOD ORDERABLES Fin al Result [facility] [address] [place] [address], [place] [phone] * (ABNORMAL) Lipid panel with reflex to direct LDL (03/01/2025 5:04 AM EDT) [facility] Cholesterol 266(H) 0 - 200 mg/dL LAB CHEMISTRY METHOD 03/01/2025 5:45 AM EDT [facility] Triglycerides 88 0 - 150 mg/dL LAB CHEMISTRY METHOD 03/01/2025 5:45 AM [facility] HDL 66 >=40 mg/dL LAB CHEMISTRY METHOD [facility] LDL Calculated 182(H) 0 - 100 mg/dL LAB CHEMISTRY METHOD 03/01/2025 5:45 AM EDT [facility] Comment:Estimated LDL Calcul ated using equation: Total cholesterol - HDL cholesterol - (Triglycerides/5) VLDL Cholesterol Tayo 17.6 mg/dL LAB CHEMISTRY METHOD 03/01/2025 5:45 AM EDT [facility] Non HDL Chol. (LDL+VLDL) 200(H) <145 mg/dL LAB CHEMISTRY METHOD 03/01/2025 5:45 AM EDT [facility] Chol/HDL Ratio 4.0 0.0 - 4.4 LAB CHEMISTRY METHOD 03/01/2025 5:45 AM EDT [facility] Blood Venous blood specimen / Unknown Venipuncture / Unknown 03/01/2025 5:04 AM EDT 03/01/2025 5:15 AM EDT Albert HAWK LAB BLOOD ORDERABLES Final Res ult [facility] [address] [place] [address], [place] [phone] * Colonoscopy (06/03/2022) Colonoscopy No interpreta tion,abstr acted Anatomical Region Laterality Modality Other Historical Provider HEALTH MAINTENANCE Final Result * DX MAMMO INCL CAD UNI (08/09/2019 9:36 AM EST) Anatomical Region Laterality Modality Mammography 07/31/2019 10:2 0 AM EST Narrative 08/09/2019 10:10 AM EST This is a summary report. The complete report is available in the patient's medical record. If you cannot access the medical record, please contact the sending organization for a detailed fax or copy. Right breast mammogram, additional views. Limited right breast ultrasound. Spot compression views of the right breast in CC and MLO projection as well as straight lateral view were obtained to follow 07/28/2019 exam. Nodular opacity visualized on screening mammogram persists on the additional views. Limited ultrasound of the right breast was performed with attention to the retroareolar breast scant from the upper outer lower outer upper inner and lower inner approach. No cystic or solid masses were identified. Findings were explained to the patient. She was given an option for stereotactic core biopsy versus short-term follow-up examination. Patient prefers the biopsy. We will help the patient to arrange surgical consultation. Surgical department will arrange the biopsy. Conclusions: Nodular opacity in the right retroareolar breast without ultrasonographic correlation. Biopsy is suggested. BI-RADS 4, suspicious abnormality. Procedure Note Angie Graham MD - 07/07/2022 This is a summary report. The complete report is available in thepatient's medical record. If you cannot access the medical record, pleasecontact the sending organization for a detailed fax or copy. Right breast mammogram, additional views. Limited right breastultrasound. Spot compression views of the right breast in CC and MLO projection aswell as straight lateral view were obtained to follow 07/28/2019 exam. Nodular opacity visualized on screening mammogram persists on theadditional views. Limited ultrasound of the right breast was performed with attention to theretroareolar breast scant from the upper outer lower outer upper inner andlower inner approach. No cystic or solid masses were identified.Findings were explained to the patient. She was given an option forstereotactic core biopsy versus short- term follow-up examination. Patientprefers the biopsy. We will help the patient to arrange surgicalconsultation. Surgical department will arrange the biopsy. Conclusions: Nodular opacity in the right retroareolar breast withoutultrasonographic correlation. Biopsy is suggested. BI-RADS 4, suspicious abnormality. Result [facility] Marycarmen Yu CN IMG BI PROCEDURES Final Result * HIV Screening (08/26/2016) HIV Screening Abstracted Result [facility] Provider HEALTH MAINTENANCE Final Result * Hepatitis C Screening (08/26/2016) Hepatitis C Screening Abstracted [facility] Provider HEALTH MAINTENANCE Final Result * Pap Smear (12/03/2015) Pap smear No interpreta tion,abstr acted Result [facility] Historical Provider HEALTH MAINTENANCE Final Result from Last 3 Months or Most Recently Relevant to Health Maintenance Insurance [employer] MEDICARE Member Subscriber Plan / Payer (Ef fective 2019-Present) Name:LALITHA YOUNGBLOOD Relation to Subscriber:Self Name:Lalitha Youngblood Payer ID:[id number] Group ID:[id number] Type:Not on file Address: [facility] [address] [id number] Advance Directives * Full Code - Default (Latest Code Status on File) Date Activated Date Inactivated Comments 06/03/2025 11:29 PM 06/04/2025 5:58 PM This is o rder is used when code status has not been discussed with the patient, or code status is otherwise unknown/unconfirmed To update the patient's code status, place a code status order. Do not modify or discontinue any currently active code status orders. * Full Code - Default Date Activated Date Inactivated Comments 02/28/2025 8:12 PM 03/03/2025 2:25 PM This is orde r is used when code status has not been discussed with the patient, or code status is otherwise unknown/unconfirmed To update the patient's code status, place a code status order. Do not modify or discontinue any currently active code status orders. Care Teams Insurance Account Manager Relationship Specialty Start Date End Date Faye Ferrera MD [address] [place] [address] PCP - General Internal Medicine 02/24/25
--- OUTSIDE RECORDS SUMMARY | 2025-06-28 22:43 | XMS_ITS | Continuity of Care Document ---
Author Name [facility], Medical Address [address] [place] [address] Organization Unknown Address [address] [place] [address] Medications No known medications Problems No known problems
--- OUTSIDE RECORDS SUMMARY | 2025-06-28 22:43 | XMS_ITS | Clinical Summary ---
Author Organization [address] Address [address] [place] [id number] Care Team Providers Care Dollyman Name Role Phone Yamil Ochoa MD Primary Care Provider [phone] Medications No known medications Active Problems Problem [...] cancer screening, Colonoscopy 10/28/2020 Diabetes screening 10/28/2020 Influenza vaccine 02/16/2025 Covid-19 vaccine series ( season) 2025 RSV Immunization (1 - 1-dose 75+ series) 10/28/2050 Meningococcal B Vaccine Aged Out No l onger eligible based on patient's age to complete this topic Meningococcal Vaccine Aged Out No kina janes eligible based on patient's age to complete this topic Pneumococcal Vaccine (2 - 49 years) Aged Out No longer eligible b ased on patient's age to complete this topic Insurance MEDICARE [id number] MED[place] MEDICARE [id number] MEDICAID MEDICARE [id number] MEDICAID MEDICARE [id number] MEDICAID Care Teams Dollyman Relationship Specialty Start Date End Date Yamil Ochoa MD PCP - General Internal Medicine 02/26/17
--- OUTSIDE RECORDS SUMMARY | 2025-06-28 22:43 | XMS_ITS | Encounter Summary ---
Author Organization [facility] Address [address] [place] [address] Care Team Providers Care Pure Culture Operator Name Role Phone Faye Ferrera MD Primary Care Provider + Reason for Visit * Reason Onset Date Comments Medication 06/26/2025 Encounter Details Date Type Department Care Team ([facility] st Contact Info) Description 06/26/2025 Telephone Obstetrics and Gynecology - [address] [phone] Elle Burton CN [address] [place] [address] Social History Tobacco Use Types Packs/Day Years [...] for your loved ones. For example, child and family services worker or elderly care for an older [...] of Assessment Author No 02/28/2025 4:09 PM EDT Adela Bowman RN * Do you have serious difficulty walking or climbing stairs? Answer Date of Assessment Author No 02/28/2025 4:09 PM Adela Bains RN * Do you have serious difficulty dressing or bathing? Answer Date of Assessment Author No 02/28/2025 4:09 PM EDT Adela Bowman RN * Because of a physical, mental, or emotional condition, do you have serious difficulty doing errandsalone such as visiting the doctor? Answer Date of Assessment Author No 02/28/2025 4:09 PM CHRIST Adela Bowman RN documented as of this encounter Mental Status * Because of a physical, mental, or emotional condition, do you have serious difficulty concentrating, remembering, or making decisions? (5 years old or older) Answer Entry Date Author No 02/28/2025 4:09 PM Adela Bains RN documented in this encounter Progress Notes * Jenise Lau RN - 06/26/2025 3:17 PM EST Patient was seen by her provider and was advised to follow discontinue clonidine[facility]. * Holly Atkinson - 06/26/2025 2:26 PM EST Pt is asking for a call back from Elle- states she had to stop taking the clonidine and wants to start the vezoah - please call documented in this encounter Plan of Treatment Upcoming Encounters Date Type Department Care Team (Late st Contact Info) Description 07/04/2025 9:20 AM EST Procedure visit [facility] [address] [place] [address] Mik Rueda MD [address] [place] [address] 07/16/2025 9:10 AM EST Office Visit [facility] [address] [place] [phone] Ladonna Moura NP [address] [facility] [address] [place] [phone] 07/31/2025 10:40 AM EST Office Visit [facility] - [place] [address] [place] [address] Caridad Rnadhawa MD [address] [place] [address] 08/14/2025 11:30 AM EST Office Visit [facility] [address] [place] [phone] Theresa Dye PA [address] [place] [phone] documented as of this encounter Visit Diagnoses Not on filedocumented in this encounter Care Teams Pure Culture Operator Relationship Specialty Start Date End Date Faye Ferrera MD [address] [place] [address] PCP - General Internal Medicine 02/24/25 documented as of this encounter
--- OUTSIDE RECORDS SUMMARY | 2025-06-28 22:43 | XMS_ITS | Continuity of Care Document ---
Author Name [facility], Medical Address [address] [place] [address] Organization Unknown Address [address] [place] [address] Medications No known medications Problems No known problems
--- OUTSIDE RECORDS SUMMARY | 2025-06-28 22:43 | XMS_ITS | Encounter Summary ---
Author Organization [facility] Address [address] [place] [address] Encounters * CPT with Medical [facility] at [facility] on 2025-03-07 { reasonForRequest : Patient had Afib last week, complex Migraine with Auras - Now for the last 20 min she is feeling anxiety and stress, and has short sharp pains. , patientReports : Head pain not relieved by medication greater than 8 hours; Head pain greater than 8 hours -unrelated to falls or injury; Head pain with nausea vomiting; Sensitive to light ,"denies :[ Worst Headache of life , New onset of vision loss , Sudden onset -unilateral weakness/gait disturbance , Fall with head strike and altered LOC", New onset of Slurred speech or difficulty finding words , Sudden Mental status changes , Head pain with fever chills and neck pain , Seizure activity ,"Dizziness with positional change ], chiefComplaints : Headache , pmh : COPD/Asthma, Chronic Back Pain, Depression, Obesity, Migraine , allergies": Ciprofloxacin, Bacitracin, Maalox Maximum Strength, Dilantin, Duoneb, Sumatriptan, Topamax& quot;, otherAllergies :null, painAssessment : , visitOutcome&quo t;: , additionalComments : 49 y.o female complains of Headache\n\n2 weeksago on Wednesday - went to ED for migraine \nZofran/Reglan/Haldol\nCarvedilol - AF from constant vomiting - then NSR\nFelt palpitations during episode of AF but denied chest pain \n\nWednesday - extremepain from headache \nTrop elevated - felt extreme chest pressure \nSaw IP neurologist \nAdmitted - NSR for whole hospitalization - recommending outpatient neuro and cards consults; still awaiting appointments for both \n\nContinuous migraine since, mildly better today\nPast hour - intermittent bursts of chest pain \nZofran q.6h - 4mg; prescribed by PCP prior to hospitalizations\nDenies vision changes, +photosensitivity\nAlert and oriented, speech clear on phone, accurate historian; Denies numbness/tingling to extremities, denies unilateral weakness\nDenies recent falls \nReports taking 50-100mg seroquel for insomnia nightly\nStarted on reyvow for migraines -PO \nRequesting visit for EKG before agreeable to ED; wants to rule out anxiety. \nRED flags reviewed. \n\nI provided information on the mobile health provider response time and advised the patient and/or caregiver to monitor reported signs and symptoms. I discussed the warning signs of when to seek emergency care. } Sent to a call for a pt complaining of a headache. [facility] arrives on scene, pt is alert and oriented, airway is patent. Pt complains of complex migraine w/auras since 02/23. Pt was evaluated/treated at [facility] ED and discharged. Pt complains of mccarty, intermittent dizziness with intermittent blurry vision, nausea, and back pain/tightness since 02/23. Pt was admitted into [facility] from 02/28-03/03 for migraine and hypertension. Pt [...] sounds: clear bilaterally; Abdomen: soft, non-tender, no di stention; Back: unremarkable; Extremities: unremarkable; Skin: pink, warm, dry; 12 lead ECG: abnormal; [facility] consulted and orders Baby ASA 324mg PO. Pt is advised she needs to be transported to ED. Pt is resistant at first, but agrees to transport to [facility] ED. 5 med rights reviewed; ASA 324mg PO administered; 911 called; Pt care transferred to [facility]. IV_(FLUIDS_AND/OR_MEDICATION), MEDICATION_IM, EKG, POC_FLU_STREP, COVID_TEST Written by Medical [facility] on 2025-03-07
== END 2025-06-28 16:11 | disposition home or self-care (01) ==
LOC: HO.HOS 15:10
PROVIDERS: PCP Internal Medicine; Visit Provider Physician Assistant
DX: M77.11 Lateral epicondylitis, right elbow (principal)
CPT/HCPCS: 20550; 99213

== ENCOUNTER → 2025-06-28 15:10 | Outpatient (BNVA) | payer OTHER, SELFPAY | PROVIDERS: PCP Internal Medicine; Visit Provider Physician Assistant | DX: M77.11 Lateral epicondylitis, right elbow (principal) | CPT/HCPCS: 20550; 99212; J1100; J2003 ==